=== PATIENT | female | born 1975 | race Caucasian/White ===

== ENCOUNTER 2019-03-22 16:12 | Emergency (ER) | payer OTHER, SELFPAY ==
[2019-03-22 16:25] VITALS: BP 115/59; PULSE 59; RESP 19; TEMP 36.8; O2SAT 100
[2019-03-22 16:36] LABS: Basophils Absolute Auto 0.1 K/mm3 (0.0-0.1); Basophils Percent Auto 1.1 % (0.2-1.2); Hematocrit 40.1 % (37.0-47.0); Hemoglobin 12.5 g/dL (12.0-15.0); Immature Granulocyte Absolute 0.02 K/mm3 (0.00-0.031); Immature Granulocyte Percent A 0.2 % (0-0.5); Lymphocytes Absolute Auto 2.48 K/mm3 (0.9-3.2); Mean Corpuscular HGB Conc 31.2 g/dl (32-36); Mean Corpuscular Hemoglobin 28.7 pg (26-34); Mean Platelet Volume 10.1 fl (7.4-10.4); Monocytes Absolute Auto 0.5 K/mm3 (0.1-0.6); Monocytes Percent Auto 5.2 % (2.6-8.5); Neutrophils Absolute Auto 5.8 K/mm3 (1.3-6.7); Neutrophils Percent Auto 65.5 % (45.5-73.1); Platelet Count Result 452 k/mm3 (150-375); Red Blood Count 4.36 M/mm3 (4.2-5.4); Red Cell Distribution Width 13.3 % (11.5-14.5); White Blood Count 8.9 K/mm3 (4.5-10.0)
[2019-03-22 16:47] LABS: Alanine Aminotransferase 12 U/L (4-35); Alkaline Phosphatase 98 U/L (38-126); Aspartate Amino Transferase 18 U/L (14-36); Bilirubin,Total 0.3 mg/dL (0.2-1.3); Blood Urea Nitrogen 12 mg/dL (7-17); Calcium 8.9 mg/dL (8.4-10.2); Carbon Dioxide 28 mmol/L (22-30); Chloride 102 mmol/L (98-107); Estimated Glomerular Filt Rate > 60; Glucose 101 mg/dL (65-105); Lipase 64 U/L (23-300); Potassium 4.1 mmol/L (3.4-5.0); Sodium 140 mmol/L (137-145)
[2019-03-22 16:49] LABS: Add Urine Microscopic? YES; Appearance Urine Cloudy (Clear); Bacteria Urine Trace /hpf; Bilirubin Urine Negative (Negative); Blood Urine 1+ (Negative); Color Urine Yellow (Yellow); Glucose Urine UA Negative (Negative); Ketones Urine Negative (Negative); Leukocyte Esterase Ur 2+ LEU/UL (Negative); Mucus Urine Moderate /lpf; Nitrate Urine Negative (Negative); Protein Urine Negative (Negative); RBC Urine 0-2 /hpf (0-2); Specific Grav Ur 1.026 (1.001-1.035); Squamous Epithelial Cell Urine Many /hpf (Few); Urobilinogen Urine Negative mg/dL (<2.0)
[2019-03-22 17:53] VITALS: BP 105/56; PULSE 66; RESP 19; TEMP 37.1; O2SAT 100
--- NOTE | 2019-03-22 18:20 | ED.ABDPAIN ---
HPI - Abdominal Pain General Chief Complaint: Abdominal Pain Stated Complaint: Stomach cramps Time Seen by Provider: 03/22/19 18:15 Source: patient and RN notes reviewed Mode of arrival: ambulatory Limitations: no limitations History of Present Illness HPI narrative: Pt is a 43 y/o female who presents to the ED with c/o diffuse lower ABD pain starting 3 days ago. She describes her pain as cramping. Pt notes that she began having diarrhea 2 days ago. She states that her pain became aggravated yesterday while at work, noting that she began vomiting due to the increased pain. Pt states that she was seen at an urgent care facility yesterday for her symptoms, and notes that she was discharged home with Zofran. She states that the medication has provided her relief of her symptoms. Pt denies any fever, chills, back pain, vaginal discharge, dysuria, hematuria, or urinary frequency. She notes that she hasn't had any vomiting today. She notes that she has recently been around a coworker that has had the flu. MD elicited complaint: abdominal pain Onset (ago): day(s) (3) Location: other (diffuse lower ABD) Quality: cramping Radiation: none Context: confirms sick contacts (coworker with flu) Associated symptoms: nausea, vomiting (resolved) and diarrhea Treatments prior to arrival: other (Zofran) Related Data Home Medications Medication Instructions Recorded Confirmed lamotrigine 03/22/19 lamotrigine 03/22/19 Allergies Allergy/AdvReac Type Severity Reaction Status Date / Time Penicillins Allergy Unknown Hives Verified 03/22/19 18:17 Review of Systems Review of Systems: Narrative: CONSTITUTIONAL: Denies fever, chills, or sweats. GASTROINTESTINAL: Reports diffuse lower abdominal pain, nausea, vomiting, and diarrhea. GENITOURINARY: Denies dysuria, hematuria, urinary frequency, or vaginal discharge. MUSCULOSKELETAL: Denies back pain, joint pain, or myalgia. All systems reviewed & are unremarkable except as noted in HPI and below PMFSH Past Medical History Medical History Epilepsy depression Surgical History Surgical History Hx of appendectomy Social History Social History Smoking status: Never smoker Gender identity (if verbalized by the patient): Female Comments PCP is Dr. Britt. Exam Narrative: Exam Narrative: GENERAL: Well-appearing, well-nourished, and in no acute distress. HEAD: Normocephalic, atraumatic. EYES: PERRLA and EOMI. ENT: Nares clear, no rhinorrhea or epistaxis. Mucous membranes moist. NECK: Supple. CHEST: Clear to auscultation. No respiratory distress. HEART: Regular rate and rhythm. No murmur heard. Normal peripheral pulses. ABDOMEN: Soft, nontender, nondistended, normal active bowel sounds. No flank tenderness. EXTREMITIES: Normal range of motion. No edema. SKIN: Warm, dry, no rash. NEURO: No focal deficits. Alert and oriented. Course Course Emergency Course: Patient presented for evaluation of nausea and vomiting. At the time of initial assessment, ABCs are intact and vital signs are stable. Patient has no abdominal pain on exam. She denies vaginal discharge or dysuria. No hematuria or frequency. Her laboratory results are reassuring. No leukocytosis or electrolyte abnormality. After speaking with the patient, clinically I do not feel her symptoms are at all consistent with urinary tract infection, I do feel the sample is not the most clean-catch, so we will await culture as she is asymptomatic. Patient with intermittent cramping, vomiting, diarrhea. This all seems most consistent with viral gastroenteritis. Patient has had no vomiting today is tolerating oral intake. Shared decision-making occurred with the patient, given normal laboratory studies, no pain on exam, she would like to forego a CT scan in this moment. I explained that should h
== END 2019-03-22 19:00 | disposition home or self-care (01) ==
PROVIDERS: Emergency Provider Emergency Medicine; PCP Internal Medicine
DX: K52.9 Noninfective gastroenteritis and colitis, unspecified (principal); G40.909 Epilepsy, unspecified, not intractable, without status epilepticus
CPT/HCPCS: 36415; 80053; 81001; 81025; 83690; 85025; 87086; 99283

== ENCOUNTER 2022-08-03 09:02 | Outpatient (CLI) | payer OTHER, SELFPAY ==
--- NOTE | ~2022-08-03 | MM_ITS ---
EXAMINATION: MM screening rita BI w [facility] HISTORY: Screening mammogram TECHNIQUE: Craniocaudal and mediolateral oblique 3-D tomosynthesis images were obtained and synthetic 2-D images were generated. CAD analysis was submitted and interpreted. COMPARISON: No prior mammogram is available for comparison at this institution. BREAST PARENCHYMAL COMPOSITION: The breasts are heterogeneously dense, which may obscure small masses . FINDINGS: Nonspecific bilateral mammographic asymmetry. Lateral diagnostic mammography is recommended , with ultrasound if required. IMPRESSION: 1. Nonspecific mammographic asymmetry 2. Bilateral diagnostic mammography is recommended, with ultrasound if required. BI-RADS Category 0: Incomplete: Needs additional imaging evaluation. Reviewed, dictated and finalized at location A. IMPRESSION: 1. Nonspecific mammographic asymmetry 2. Bilateral diagnostic mammography is recommended, with ultrasound if required . BI-RADS Category 0: Incomplete: Needs additional imaging evaluation.
== END 2022-08-03 09:03 | disposition home or self-care (01) ==
LOC: ANHIMG 09:05
PROVIDERS: PCP Internal Medicine; Visit Provider Physician Assistant
DX: Z12.31 Encounter for screening mammogram for malignant neoplasm of breast (principal); R92.8 Other abnormal and inconclusive findings on diagnostic imaging of breast
CPT/HCPCS: 77063; 77067

== ENCOUNTER 2022-09-10 11:28 | Outpatient (CLI) | payer OTHER, SELFPAY ==
--- NOTE | ~2022-09-10 | MMUS_ITS ---
EXAMINATION: MM diagnostic rita BI w elmer, US breast BI complete HISTORY: No specific mammographic asymmetry was reported on 08/03/2022 screening mammogram examination TECHNIQUE: Additional 3-D tomosynthesis images of both breasts were performed and synthetic 2-D image s were generated. CAD analysis was submitted and interpreted. High resolution complete bilateral [facility] [facility] ultrasound examination including all 4 quadrants and subareolar areas was performed. COMPARISON: 08/03/2022, 03/24/2021, 09/28/2018 bilateral screening mammogram examinations BREAST PARENCHYMAL COMPOSITION: The breasts are heterogeneously dense, which may obscure small masses . FINDINGS: MAMMOGRAPHIC FINDINGS: Stable mild fibroglandular asymmetry since 09/28/2018 and 03/24/2021. No suspicious interval mass or architectural distortion or any malignant calcification, skin thickeni ng or retraction of either breast is detected. ULTRASOUND: Right breast: There is a cluster of cysts at 7:00 subareolar area measuring up to approximately 7 x 4 .5 x 6 mm, with through transmission and posterior enhancement. No other significant finding of the right breast; no suspicious mass or shadowing. Left breast: 11:00 2 cm from nipple: There is an approximately 1.9 x 2.5 x 2.7 mm mildly irregular hypoechoic lesi on without suspicious shadowing or internal vascularity. This is probably benign. Six-month follow-up targeted right breast ultrasound at 11:00 2 cm from the nipple is recommended. IMPRESSION: 1. Probable benign mildly irregular up to 2.7 mm hypoechoic lesion at left breast 11:00 2 cm from nip ple 2. Six-month targeted 11:00 left breast ultrasound follow-up is recommended BI-RADS category 3, probably benign findings. Reviewed, dictated and finalized at location A. IMPRESSION: 1. Probable benign mildly irregular up to 2.7 mm hypoechoic lesion at left [address] 11:00 2 cm from nipple 2. Six-month targeted 11:00 left breast ultrasound follow-up is recommended BI-RADS category 3, probably benign findings.
== END 2022-09-10 11:29 | disposition home or self-care (01) ==
LOC: ANHIMG 11:30
PROVIDERS: PCP Internal Medicine; Visit Provider Physician Assistant
DX: R92.8 Other abnormal and inconclusive findings on diagnostic imaging of breast (principal)
CPT/HCPCS: 76641; 77062; 77066; G0279

== ENCOUNTER 2022-11-18 09:52 | Outpatient (CLI) | payer OTHER, SELFPAY ==
--- NOTE | ~2022-11-18 | US_ITS ---
EXAMINATION: US pelvic complete w TV DATE: 11/18/2022 10:26 INDICATION: Abnormal uterine bleeding TECHNIQUE: Multiple transabdominal and endovaginal sonographic images of the pelvis were obtained. COMPARISON: None. FINDINGS: The uterus measures 7.8 x 4.4 x 5.3 cm. The endometrial complex measures 2.4 cm. The right ovary measures 3.1 x 1.9 x 2.2 cm. The left ovary measures 3.1 x 1.4 x 1.9 cm. There is normal vascul ar flow in the ovaries. There is no free fluid in the pelvis. IMPRESSION: 1. Endometrial thickening which may be due to hyperplasia, polyp, or malignancy. Endometrial sampling is recommended. Reviewed, dictated and finalized at location L. IMPRESSION: 1. Endometrial thickening which may be due to hyperplasia, polyp, or malignancy . Endometrial sampling is recommended.
== END 2022-11-18 09:53 | disposition home or self-care (01) ==
PROVIDERS: PCP Internal Medicine; Visit Provider Physician Assistant
DX: N93.9 Abnormal uterine and vaginal bleeding, unspecified (principal); R93.89 Abnormal findings on diagnostic imaging of other specified body structures
CPT/HCPCS: 76830; 76856

== ENCOUNTER 2024-01-08 20:32 | Emergency (ER) | payer OTHER, SELFPAY ==
[2024-01-08 20:36] VITALS: BP 103/71; PULSE 85; RESP 16; TEMP 36.6; O2SAT 100
--- NOTE | 2024-01-08 22:43 | ED_ITS ---
HPI - Burn/Smoke Inhalation General Chief complaint: Burn/Smoke Inhalation Stated complaint: burn Time Seen by Provider: 01/08/24 22:15 History of Present Illness HPI Narrative: 48-year-old female presents to the emergency department for a burn to her left hand that occurred 4 days ago. Patient states she was cooking hand when she accidentally spilled the hot lays on her left wrist. She immediately rinsed the area under cold water. States she developed 2 large blisters which has since popped. She has been using Neosporin and bandages. States she wanted to be evaluated because the skin is starting to peel off. Tdap is up-to-date. Related Data Home Medications Medication Instructions Recorded Confirmed lamotrigine 100 mg tablet 03/22/19 lamotrigine 150 mg tablet 03/22/19 Allergies Allergy/AdvReac Type Severity Reaction Status Date / Time Penicillins Allergy Unknown Hives Verified 03/22/19 18:17 Review of Systems Review of Systems: All systems reviewed & are unremarkable except as noted in HPI and below PMFSH Past Medical History Medical History (Updated 01/08/24 @ 23:08 by Angelina Mortensen PA-C) Epilepsy depression Surgical History Surgical History Hx of appendectomy Social History Social History Smoking status: Never smoker Gender identity (if verbalized by the patient): Female Exam Narrative: GENERAL: Well-appearing, well-nourished, and in no acute distress. HEAD: Normocephalic, atraumatic. EYES:EOMI. ENT: Nares clear, no rhinorrhea or epistaxis. Mucous membranes moist. NECK: Supple. CHEST: Clear to auscultation. No respiratory distress. HEART: Regular rate and rhythm. No murmur heard. Normal peripheral pulses. EXTREMITIES: Normal range of motion. No edema. SKIN: healing second-degree burn to the left wrist and dorsum of the hand extending from the distal radius to the distal 1st metacarpal and along the dorsum of the hand. No vesicles but there are 2 areas of discrimination with healthy skin. No warmth or erythema, no drainage, no crepitus. Patient has ful l active and passive range of motion of wrist in all fingers. Burn is not circumferential. Radial pulse 2 +. Sensation intact throughout. Cap refill less than 2. Compartments are soft NEURO: No focal deficits. Alert and oriented x3 Course Vital Signs Vital signs: Vital Signs Temperature 98 F 01/08/24 20:36 Pulse Rate 85 01/08/24 20:36 Respiratory Rate 16 01/08/24 20:36 Blood Pressure 103/71 01/08/24 20:36 Pulse Oximetry 100 01/08/24 20:36 Oxygen Delivery Room Air 01/08/24 20:36 Temperature 98 F 01/08/24 20:36 Pulse Rate 85 01/08/24 20:36 Respiratory Rate 16 01/08/24 20:36 Blood Pressure 103/71 01/08/24 20:36 Pulse Oximetry 100 01/08/24 20:36 Oxygen Delivery Room Air 01/08/24 20:36 MDM - Burn/Smoke Inhalation MDM Narrative Medical decision making narrative: 48-year-old female presents to the emergency department for a burn to her left wrist/ hand that occurred 4 days ago after burning herself on hot turkey glaze. Vitals are stable. Exam is significant for healing second-degree burn. No active vesicles but there is appearance of discrimination and likely popped vesicles. Healthy healing granulated skin beneath. No evidence of secondary infection. The burn is not circumferential. She has full active and passive range of motion of the wrist and all digits. No evidence of compartment syndrome. She is neurovascularly intact. Will provide stool for sulfadiazine and have her follow-up closely with her PCP. Discussed wound care. Tdap is updated. Strict ED return precautions discussed. She is agreeable with the plan verbalized understanding. Discharged in stable condition. Discharge Plan Discharge Clinical Impression: Second degree burn Patient Disposition: Home, Self-Care Condition: Stable Instructions: Antibiotic Form, Second-Degree Burn (ED) Additional Instructions: Your evaluated in the emergency department for a burn. Your exam is consistent with a second-degree burn. Please use the cream as directed follow- up with her primary care provider. Take Tylenol and ibuprofen as needed for pain as directed on the bottle. Return to the emergency department if he develops significantly worsening pain, fever, surrounding redness, difficulty with movement of your wrist, or other concerning symptoms. Prescriptions: New silver sulfadiazine 1 % cream 1 applic topical BID Qty: 20 0RF Rx Instructions: apply a 1.5 mm thickness No Action lamotrigine 150 mg tablet lamotrigine 100 mg tablet famotidine [Pepcid] 20 mg tablet 20 mg PO BID 15 Days Qty: 30 0RF dicyclomine 10 mg capsule 10 mg PO BID 5 Days Qty: 10 0RF Follow-up/Referrals: Balwinder,Sridhar Medina MD [Primary Care Provider] -
[2024-01-08 23:14] VITALS: BP 112/58; PULSE 78; RESP 16; TEMP 36.8; O2SAT 100
== END 2024-01-08 23:16 | disposition home or self-care (01) ==
PROVIDERS: Emergency Provider Physician Assistant; PCP Internal Medicine
DX: T23.292A Burn of second degree of multiple sites of left wrist and hand, initial encounter (principal); X10.1XXA Contact with hot food, initial encounter; G40.909 Epilepsy, unspecified, not intractable, without status epilepticus
CPT/HCPCS: 99283

== ENCOUNTER 2024-03-31 17:03 | Emergency (ER) | payer BC, SELFPAY ==
--- OUTSIDE RECORDS SUMMARY | 2024-03-31 17:05 | XMS_ITS | Patient Health Record ---
Author Organization [facility] Address [address] [place] [id number] Care Team Providers Care Golf Cart Maker Name Role Phone Sridhar Britt MD Primary Care Provider Dr. Jose Armstrong Unavailable [phone] [facility], Provider Unavailable Unavailab le Allergies Allergen (clinical drug ingredient) Drug/Non Drug Allergy documented on EMR Reaction Allergy Type Onset Date Status amoxicillin Amoxicillin rash Drug Allergy Act tiana Reason For Referral No Information Medications Medication SIG (Take, Route, Frequency, Duration) Notes Start Date End Date Status Amiodarone HCl 400 MG 1 tab(s) orally on ce a day Not-Taking Metoprolol Succinate ER 25 MG 1 tab(s) orally once a day Not-Taking Briviact 50 MG 1 tablet orally Twic e a day for 30 days 10/06/2023 Active lamoTRIgine 100 MG 0.5 tab in AM, 1.5 t ab in PM orally with meals as directed for 30 days Active Social History Tobacco Use: Social History Observation Description Date Details (start date - stop date) Never Smoker NA - NA Tobacco Control (Standard) Question Answer Notes Tobacco use: Nonsmoker Section Notes: Non smoker, no EtOH abuse, n o illicit drug use Non smoker, no EtOH abuse, n o illicit drug use Non smoker, no EtOH abuse, n o illicit drug use Non smoker, no EtOH abuse, n o illicit drug use Non smoker, no EtOH abuse, n o illicit drug use Problems Problem Type SNOMED Code ICD Code Onset Dates Problem Status W/U Status Risk Notes Problem Epilepsy (71352547) Epilepsy, unspecified, not intractable, without status epilepticus (G40.909) Active confirmed Problem Epilepsy, unspecified, intractable, without status epilepticus (G40.919) Active confirmed Problem Chronic migraine without aura, non-refractor y (disorder) (464668876245 100) Migraine without aura, not intractable, without status migrainosus (G43.009) Active confirmed Problem Migraine with aura (0200157) Migraine with aura, not intractable, without status migrainosus (G43.109) Active confirmed Problem Chronic migraine without aura, non-intractab le (766275174868 100) Chronic migraine without aura, not intractable, without status migrainosus (G43.709) Active confirmed Problem Insomnia (749115398) Insomnia, unspecified (G47.00) Active confirmed Problem Encounter for therapeutic drug level monitoring (Z51.81) Active confirmed Vital Signs Respiratory Rate 16 /min 06/01/2023 Oximetry 100 % 10/06/2023 Blood pressure diastolic 68 mm Hg 10/06/2023 Height 62 in 10/06/2023 Blood pressure systolic 94 mm Hg 10/06/2023 Weight 140.8 lbs 10/06/2023 BMI 25.75 kg/m2 10/06/2023 Encounters Encounter Location Date Provider Diagnosis [address] [address] 07/23/2023 Provider [facility] [address] [address] [address] 04/27/2023 Jose Forman Epilepsy, unspecified, intractable, without status epilepticus G40.919 ; Unspecified adverse effect of drug or medicament, initial encounter T88.7XXA and Unspecified abnormalities of gait and mobility R26.9 [address] [facility] [address] [address] 06/01/2023 Jose Forman Epilepsy, unspecified, intractable, without status epilepticus G40.919 and Encounter for therapeutic drug level monitoring Z51.81 [address] [facility] [employer] [address] [address] 08/18/2023 Jose Forman Epilepsy, unspecified, intractable, without status epilepticus G40.919 and Encounter for therapeutic drug level monitoring Z51.81 [address] [employer] [address] [address] 10/06/2023 Jose Forman Epilepsy, unspecified, not intractable, without status epilepticus G40.909 [facility] [place] [place] [address] 04/25/2023 Jose Forman [facility] - [address] [place] [address] 05/03/2023 Jose Forman [facility] - [place] [address] [place] [address] 06/01/2023 Jose Forman Encounter for therapeutic drug level monitoring Z51.81 [facility] - [place] [address] [place] [address] 06/15/2023 Jose Forman Assessments Encounter Date Diagnosis (ICD Code) Assessment Notes Treatment Notes Treatment Clinical Notes Section Notes 06/01/2023 Encounter for therapeutic drug level monitoring (ICD-10 - Z51.81) 08/18/2023 Epilepsy, unspecified, intractable, without status epilepticus (ICD-10 - G40.919) Continue current doses of Briviact and Lamictal. F/u in 7 weeks, this will be 6 months from last seizure, if remains stable/seizure -free will clear driving at that time 08/18/2023 Encounter for therapeutic drug level monitoring (ICD-10 - Z51.81) Lamotrigine level reviewed, therapeutic. 10/06/2023 Epilepsy, unspecified, not intractable, without status epilepticus (ICD-10 - G40.909) Continue current doses of Lamotrigine and Briviact. Medically cleared to resume driving. Stable, doing well. She is > 6 months seizure-free and on a stable AED regimen. She is medically cleared to resume driving 04/27/2023 Epilepsy, unspecified, intractable, without status epilepticus (ICD-10 - G40.919) Continue Lamotrigine 250 mg daily. Reduce Briviact to 50 mg bid. I don't know if the dizziness is from increasing Briviact from 100 mg to 200 mg daily or from adding Amiodaron, or both. There could also be residual effects from the cardiac arrest, although she reported Brain MRI from hospitalization was negative. She reported tolerating Briviact at dose of 50 mg bid prior to this hospitalization, so I would go back to that dose. I also advised her to discuss Amiodarone with her [employer]. Reviewed seizure precautions, driving restriction, etc. 04/27/2023 Unspecified adverse effect of drug or medicament, initial encounter (ICD-10 - T88.7XXA) Reduce Briviact to 50 mg bid. Discuss amiodarone with Cardiology. I don't know if the dizziness is from increasing Briviact from 100 mg to 200 mg daily or from adding Amiodaron, or both. There could also be residual effects from the cardiac arrest, although she reported Brain MRI from hospitalization was negative. She reported tolerating Briviact at dose of 50 mg bid prior to this hospitalization, so I would go back to that dose. I also advised her to discuss Amiodarone with her [employer]. Reviewed seizure precautions, driving restriction, etc. 06/01/2023 Epilepsy, unspecified, intractable, without status epilepticus (ICD-10 - G40.919) Continue lamotrigine 200 mg daily and Briviact 100 mg daily. 06/01/2023 Encounter for therapeutic drug level monitoring (ICD-10 - Z51.81) Check trough lamotrigine and Briviact levels. 04/27/2023 Unspecified abnormalities of gait and mobility (ICD-10 - R26.9) Physical Therapy (she has already been referred). I don't know if the dizziness is from increasing Briviact from 100 mg to 200 mg daily or from adding Amiodaron, or both. There could also be residual effects from the cardiac arrest, although she reported Brain MRI from hospitalization was negative. She reported tolerating Briviact at dose of 50 mg bid prior to this hospitalization, so I would go back to that dose. I also advised her to discuss Amiodarone with her [employer]. Reviewed seizure precautions, driving restriction, etc. 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
--- OUTSIDE RECORDS SUMMARY | 2024-03-31 17:06 | XMS_ITS | Clinical Summary ---
Author Organization [facility] Address [facility] [place] [address] Care Team Providers Care Hoof And Shoe Inspector Name Role Phone Sridhar Britt MD Primary Care Provider Allergies Active Allergy Reactions Criticality Noted Date Comments Amiodarone Vision changes,Dizziness,Nausea only Medium 05/09/2023 Carbamazepine Penicillins Rash Reaction: Rash, Valproic Acid Medications cholecalciferol (VITAMIN D-3) 2000 unit capsule Take 1 capsule (2,000 Units total) by mouth daily 04/16/2023 5 Active brivaracetam (BRIVIACT) 100 mg tablet Take 1 tablet (100 mg total) by mouth 2 (two) times a day 60 tablet 2 04/16/2023 5 Active lamoTRIgine (LaMICtal) 100 mg tablet Take 1 tablet (100 mg total) by mouth daily 30 tablet 2 04/16/2023 5 Active spironolactone (ALDACTONE) 25 mg tablet Take 1 tablet (25 mg total) by mouth daily 30 tablet 11 08/19/2023 5 Active Active Problems Problem Noted Date Diagnosed Date Seizure 04/04/2023 Cardiogenic shock 04/04/2023 Ventricular fibrillation (CMS/HCC) 12/16/2022 Cardiac arrest 12/16/2022 Episodic tension-type headache, not intractable 12/16/2020 Assessment & Plan (12/16/2020 9:36 AM TRUCK CHAUFFEUR): Patient describes episodic headaches typically brought on by emotional stressors with historical characteristics consistent with muscle contraction type headache. She enjoys a normal neurological examination at this time. I would recommend yrce-exm-ejxkwta anti-inflammatories on an as-needed basis if the headaches do recur. Generalized idiopathic epile psy and epileptic syndromes, not intractable, without status epilepticus 11/01/2019 Assessment & Plan (12/16/2020 9:35 AM TRUCK CHAUFFEUR): Patient continues on lamotrigine 100 mg b.i.d. with good tolerability and no seizures reported over the past year. I have reviewed teratogenicity and suggested use of an bisj-zmq-ttbiuis multivitamin with folic acid an effort to reduce potential teratogenicity. She will continue on lamotrigine 100 mg b.i.d. at this time and a refill authorization has been submitted. She will follow-up in neurology clinic in 1 year or sooner on an as-needed basis. Assessment & Plan (11/01/2019 10:15 AM CDT): Patient's history of primary generalized epilepsy. She she is taking lamotrigine 100 mg b.i.d.. She has no tolerability issues on this dose and has no reported seizures over the past year. She is in need of renewal of medication. I have renewed her lamotrigine 100 mg b.i.d. 4 month with 11 monthly subsequent refills. I will see her back in 1 year. Encounters Date Type Department Care Team Description 03/01/2024 10:45 AM TRUCK CHAUFFEUR - 03/01/2024 11:59 PM TRUCK CHAUFFEUR Hospital Encounter [facility] Cardiac Diagnostic Lab [address] [place] [address] Ventricular fibrillation (CMS/HCC) (HCC); Cardiac arrest (HCC) Discharge Disposition: Discharge to home or self care 02/24/2024 Orders Only [facility] Cardiology [address] 8[address] [place] [address] [place] [address] Francisco Javier Narayanan MD from Last 3 Months Surgical History Surgery Date Site/Laterality Comments HI APPENDECTOMY 02/08/1996 - 02/06/1997 Appendectomy - (Added by SHELDON Conv) Medical History Medical History Date Comments Generalized seizures (HCC) Family History Medical History Relation Name Comments Diabetes Father Hypertension Father Epilepsy Other Seizure Disorde r - Her cousin has epilepsy. (Added by SHELDON Conv) Relation Name Status Comments Father Alive Mother Alive Other Social History Tobacco Use Types Packs/Day Years Used Date Smoking Tobacco: Never Smokeless Tobacco: Never Tobacco Cessation:Counseling Given: Not Answered Alcohol Use Standard Drinks/Week Comments Defer 0 (1 standard drink = 0.6 oz pur e alcohol) [facility] Utilities Answer Date Recorded In the past 12 months has th e electric, gas, oil, or water company threatened to shut off services in your home? No 04/18/2023 Social Connection and Isolat ion Panel [NHANES] Answer Date Recorded In a typical week, how many times do you talk on the phone with family, friends, or neighbors? More than three times a week 04/18/2023 How often do you get togethe r with friends or relatives? More than three times a week 04/18/2023 How often do you attend chur ch or shinto services? Patient declined 04/18/2023 Do you belong to any clubs o r organizations such as gnosticism groups, unions, fraternal or athletic groups, or school groups? Patient declined 04/18/2023 How often do you attend meet ings of the clubs or organizations you belong to? Patient declined 04/18/2023 Are you , , di vorced, , never , or living with a partner? 04/18/2023 AUDIT-C Answer Date Recorded Q1: How often do you have a drink containing alc ohol? Monthly or less 04/14/2023 Q2: How many drinks containi ng alcohol do you have on a typical day when you are drinking? 1 or 2 04/14/2023 Q3: How often do you have si x or more drinks on one occasion? Never 04/14/2023 Overall Financial Resource Strain (CARDIA) Answe r Date Recorded How hard is it for you to pa y for the very basics like food, housing, medical care, and heating? Not hard at all 04/18/2023 Hunger Vital Sign Answer Date Recorded Within the past 12 months, y ou worried that your food would run out before you got the money to buy more. Never true 04/18/19 24 Within the past 12 months, t he food you bought just didn't last and you didn't have money to get more. Never true 04/18/2023 PRAPARE - Transportation Answer Date Re corded In the past 12 months, has l ack of transportation kept you from medical appointments or from getting medications? No 04/07 In the past 12 months, has l ack of transportation kept you from meetings, work, or from getting things needed for daily living? No 04/18/2023 Housing Stability Vital Sign Answer Davon e Recorded In the last 12 months, was t here a time when you were not able to pay the mortgage or rent on time? No 04/18/2023 In the last 12 months, how many places have you lived? 1 04/18/2023 In the last 12 months, was t here a time when you did not have a steady place to sleep or slept in a nursing home (including now)? No 04/18/2023 Personal Safety Answer Date Recorded Have you ever been in or are you currently in a harmful physical or emotional relationship or is someone making you feel afraid or unsafe? Denies 09/08/2023 Comments No Sex and Gender Information Value Date Recorded Sex Assigned at Not on file Legal Sex Female 4:51 AM TRUCK CHAUFFEUR Gender Identity Not on file Sexual Orientation Not on file Obstetrics History Last Filed Vital Signs Vital Sign Reading Time Taken Comments Blood Pressure 113/75 11/24/2023 11:20 AM CDT Pulse 80 11/24/2023 11:20 AM CDT Temperature 36.4 C (97.6 F) 11/24/2023 11:20 AM CDT Respiratory Rate 18 11/24/2023 11:20 AM CDT Oxygen Saturation 98% 11/24/2023 11:20 AM CDT Inhaled Oxygen Concentration - - Weight 64.9 kg (143 lb) 11/24/2023 11:20 AM CDT Height 160 cm (5' 3 ) 11/24/2023 11:20 AM CDT Body Mass Index 25.33 11/24/2023 11:20 AM CDT Plan of Treatment Health Maintenance Due Date Last Done Comments Breast Cancer Screening-Mammogram 1975 Cervical Cancer Screening 1975 Colon Cancer Screening-Colonoscopy 1975 Depression Screening 1975 Hepatitis C Screening 1975 Hepatitis B Screening 10/19/1993 Regular Well Visit/Exam 18-64 10/19/1993 DTaP/Tdap/Td Vaccine (2 - Td or Tdap) 11/20/2028 11/20/2018 Influenza Vaccine Completed 01/26/2024, 11/20/2018 Pneumococcal vaccine <65 Aged Out No longer eligible based on patient's age to complete this topic Medical Devices Implanted Type Area Sanitation Technician Device Identifier Shelf Expiration Date Model / Serial / Lot [employer]. [facility] S-Icd 83.1x69.1mm Pulse Generator Battery Subcutaneous A219 - [id number] - [id number] Implanted:Qty: 1 on 04/14/2023 by Francisco Javier Narayanan MD at [facility] ICD [employer]. 02/20/2025 A219 / [id number] / [employer] G[employer] Emble S-Icd Subcutaneous Electrode Defibrillator 3501 - [id number] - [id number] Implanted:Qty: 1 on 04/14/2023 by Francisco Javier Narayanan MD at [facility] Subcutaneous Defibrillator Electrode [employer] Gin 02/15/2025 3501 / [id number] / Procedures Procedure Name Priority Date/Time Associated Diagnosis Comments TRANSTHORACIC ECHO (TTE) COMPLETE W DOPPLER/CF WO CONTRAST Routine 03/01/2024 11:52 AM TRUCK CHAUFFEUR Ventricular fibrillation (CMS/HCC) (HCC) Cardiac arrest (HCC) DEVICE CHECK - REMOTE Routine 02/24/2024 9:43 AM TRUCK CHAUFFEUR from Last 3 Months Results * TRANSTHORACIC ECHO (TTE) COMPLETE W DOPPLER/CF WO CONTRAST (03/01/2024 11:52 AM TRUCK CHAUFFEUR) LV EF % CONS SCIMAGE Anatomical Region Laterality Modality Ultrasound 03/01/2024 11:0 3 AM TRUCK CHAUFFEUR Narrative 03/02/2024 3:03 PM TRUCK CHAUFFEUR [facility] Cardiac Diagnostic [place] [address] [place] [address] Transthoracic Echocardiographic Report Patient Name: SEJAL HOUSTON L : 1975 (48y 4m) Gender: F Study Date: 03/01/2024 11:03:28 AM Ht(Inch): 63 Wt(Lb): 143.08 BSA: 1.7 Auto Service Dispatcher: raul mena Location: [facility] Order Provider: DICK SALMERON Heart Rate: 68 BMI: 25.34 BP: 123 / 75 Quality: The study images were of technically good quality. Ref Provider: DICK SALMERON PROCEDURES: Echocardiographic Report: ([id number], [id number]) Transthoracic complete echo with strain imaging, 2D, spectral and tissue Doppler, color flow Doppler, M-mode. INDICATIONS: I49.01 Ventricular fibrillation and I46.9 Cardiac arrest, cause unspecified. MEASUREMENTS: 2D/MM Value Range Doppler Value Range LVIDd 2D 4.17 cm [ 3.80 - 5.20 ] LVOT Peak Andres 1.00 m/s [ 0.70 - 1.10 ] LVIDs 2D 3.05 cm [ 2.20 - 3.50 ] LVOT Peak PG 4.00 IVSd 2D 0.65 cm [ 0.60 - 0.90 ] LVOT Mean PG 1.94 mmHg LVPWd 2D 0.68 cm [ 0.60 - 0.90 ] LVOT VTI 18.65 cm LV Thickness Ratio 0.96 [ 1.50 - 3.00 ] LVOT Diam 1.97 cm LV FS 2D 26.78 % [ 27.00 - 45.00 ] MV E Peak Andres 0.69 m/s [ 0.60 - 1.30 ] LV Mass 2D 81.01 g MV A Peak Andres 0.57 m/s [ 1.00 - 1.20 ] LV Mass Index 2D 47.65 g/m2 MV E/A 1.22 ratio [ 0.80 - 1.50 ] RWT 0.33 MV Decel Time 246.78 msec [ 104.00 - 258.00 ] LV EDV 2D 77.26 Med E` Andres 11.79 cm/sec [ 8.00 - 15.00 ] LV ESV 2D 36.44 Lat E` Andres 12.21 cm/sec [ 10.00 - 15.00 ] EF Teich 2D 53 % [ 54 - 74 ] Average E/E` 5.75 LV EDV Index 40.31 ml/m2 RV S` 12.04 cm/sec EDV Mod 2C 70.25 ml [ 41.00 - 133.00 ] PV Peak Andres 0.53 m/s [ 0.40 - 0.80 ] EDV Mod 4C 65.74 ml PV Peak PG 1.12 EDV Mod BP 68.52 ml [ 46.00 - 106.00 ] PV Accel Time 163.65 msec [ 103.00 - 142.00 ] ESV Mod 2C 30.44 ml PV Accel [place] 323.38 cm/sec2 ESV Mod 4C 28.41 ml ESV Mod BP 29.66 ml [ 14.00 - 42.00 ] EF Mod 2C 57 % EF Mod 4C 57 % EF Mod BP 57 % [ 54 - 74 ] LV GLS -18.7 % LA Length 2C 3.79 cm LA Length 4C 4.98 cm LA Volume 2C 30.1 ml LA Volume 4C 32.2 ml LA Volume BP 39.54 ml LA Volume Index 23.26 ml/m2 RV Base Dimen 2D 3.3 cm [ 2.5 - 4.2 ] TAPSE 2.01 cm [ 1.71 - 5.00 ] RA Area 10.12 cm/m2 [ 10.00 - 18.00 ] RA Volume 22.25 ml RA Volume Index 13.09 ml/m2 IVC Diam 1.11 sec AoR Diam 2D 2.65 cm [ 2.70 - 3.70 ] Ao Root Index 1.56 cm/m2 - FINDINGS: Left Ventricle: Normal left ventricular size based on volume index. Normal LV geometry. Normal left ventricular systolic function. The Ejection Fraction (Frey's) is measured at 57 %. Left ventricular diastolic parameters are consistent with normal diastolic function. The average global longitudinal strain rate is normal (more negative than -18%). Regional Wall Motion: There are no regional wall motion abnormalities. Right Ventricle: Normal right ventricular size. Normal right ventricular systolic function. Left Atrium: The left atrium is normal in size. Right Atrium: The right atrium is normal in size. Atrial Septum: The interatrial septum is normal in appearance. Mitral Valve: The mitral valve demonstrates normal leaflet morphology and function. Aortic Valve: Trileaflet aortic valve. Tricuspid Valve: There is trivial tricuspid regurgitation. PASP cannot be evaluated due to lack of adequate TR jet. Pulmonic Valve: Normal appearance of the pulmonic valve leaflets without evidence stenosis. Pericardium: Normal pericardium without evidence of pericardial effusion. Aorta: The aortic root is normal in size when indexed. IVC: The inferior vena cava is of normal size. Rhythm: The rhythm during the study was normal sinus rhythm. CONCLUSIONS: 1. Normal left ventricular cavity size and wall thickness. Normal left ventricular systolic function, LVEF 57 %. Normal diastolic function with normal est. LV filling pressure. Normal global longitudinal strain rate (more negative than -18%). 2. Normal right ventricular size and systolic function. 3. Normal LA, RA, aorta and IVC. 4. No significant valvular abnormalities. 5. Normal mean PA pressure based on PV acceleration time. 6. No pericardial effusion. COMPARISONS: Compared to prior study completed on 08/18/2023. No change compared to prior study. ATTESTATION: I have reviewed and interpreted the pertinent images and measurements of this study. I attest to the conclusions in the final report that is provided above. DISCLAIMER: The study images and the final report will be retained in the patient chart by the Echo Laboratory for the legally required time period. This chart constitutes the legal record of any testing performed. Electronically Signed By: eDshawn Bansal MD 03/01/2024 3:00:13 PM TRUCK CHAUFFEUR Electronically Signed By: Jose Estevez MD 03/02/2024 3:02:49 PM TRUCK CHAUFFEUR Procedure Note Jose Estevez MD - 03/02/2024 [facility] Cardiac [facility] [place] [address] [place] [address] Transthoracic Echocardiographic Report Patient Name: SEJAL HOUSTON L : 1975 (48y 4m) Gender: F Study Date: 03/01/2024 11:03:28 AM Ht(Inch): 63 Wt(Lb): 143.08 BSA: 1.7 Auto Service Dispatcher: raul mena Location: [facility] Order Provider: DICK SALMERON Heart Rate: 68 BMI: 25.34 BP: 123 / 75 Quality: The study images were oftechnically good quality. Ref Provider: DICK SALMERON PROCEDURES: Echocardiographic Report: ([id number], [id number]) Transthoracic complete echo withstrain imaging, 2D, spectral and tissue Doppler, color flow Doppler, M-mode. INDICATIONS: I49.01 Ventricular fibrillation and I46.9 Cardiac arrest, causeunspecified. MEASUREMENTS: 2D/MM Value Range DopplerValue Range LVIDd 2D 4.17 cm [ 3.80 - 5.20 ] LVOT Peak Vel1.00 m/s [ 0.70 - 1.10 ] LVIDs 2D 3.05 cm [ 2.20 - 3.50 ] LVOT Peak PG4.00 IVSd 2D 0.65 cm [ 0.60 - 0.90 ] LVOT Mean PG1.94 mmHg LVPWd 2D 0.68 cm [ 0.60 - 0.90 ] LVOT VTI18.65 cm LV Thickness Ratio 0.96 [ 1.50 - 3.00 ] LVOT Diam1.97 cm LV FS 2D 26.78 % [ 27.00 - 45.00 ] MV E Peak Vel0.69 m/s [ 0.60 - 1.30 ] LV Mass 2D 81.01 g MV A Peak Vel0.57 m/s [ 1.00 - 1.20 ] LV Mass Index 2D 47.65 g/m2 MV E/A1.22 ratio [ 0.80 - 1.50 ] RWT 0.33 MV Decel Nyvg704.78 msec [ 104.00 - 258.00 ] LV EDV 2D 77.26 Med E` Vel11.79 cm/sec [ 8.00 - 15.00 ] LV ESV 2D 36.44 Lat E` Vel12.21 cm/sec [ 10.00 - 15.00 ] EF Teich 2D 53 % [ 54 - 74 ] Average E/E`5.75 LV EDV Index 40.31 ml/m2 RV S`12.04 cm/sec EDV Mod 2C 70.25 ml [ 41.00 - 133.00 ] PV Peak Vel0.53 m/s [ 0.40 - 0.80 ] EDV Mod 4C 65.74 ml PV Peak PG1.12 EDV Mod BP 68.52 ml [ 46.00 - 106.00 ] PV Accel Xlsv193.65 msec [ 103.00 - 142.00 ] ESV Mod 2C 30.44 ml PV Accel Aaqmu141.38 cm/sec2 ESV Mod 4C28.41 ml ESV Mod BP 29.66 ml [ 14.00 - 42.00 ] EF Mod 2C 57 % EF Mod 4C 57 % EF Mod BP 57 % [ 54 - 74 ] LV GLS -18.7 % LA Length 2C3.79 cm LA Length 4C4.98 cm LA Volume 2C30.1 ml LA Volume 4C32.2 ml LA Volume BP39.54 ml LA Volume Index23.26 ml/m2 RV Base Dimen 2D 3.3 cm [ 2.5 - 4.2 ] TAPSE 2.01 cm [ 1.71 - 5.00 ] RA Area 10.12 cm/m2 [ 10.00 - 18.00 ] RA Xijsxq27.25 ml RA Volume Index13.09 ml/m2 IVC Diam1.11 sec AoR Diam 2D 2.65 cm [ 2.70 - 3.70 ] Ao Root Index1.56 cm/m2 - FINDINGS: Left Ventricle: Normal left ventricular size based on volume index. NormalLV geometry. Normal left ventricular systolic function. The Ejection Fraction(Frey's) is measured at 57 %. Left ventricular diastolic parameters are consistent with normaldiastolic function. The average global longitudinal strain rate is normal (morenegative than -18%). Regional Wall Motion: There are no regional wall motion abnormalities. Right Ventricle: Normal right ventricular size. Normal right ventricularsystolic function. Left Atrium: The left atrium is normal in size. Right Atrium: The right atrium is normal in size. Atrial Septum: The interatrial septum is normal in appearance. Mitral Valve: The mitral valve demonstrates normal leaflet morphology andfunction. Aortic Valve: Trileaflet aortic valve. Tricuspid Valve: There is trivial tricuspid regurgitation. PASP cannot beevaluated due to lack of adequate TR jet. Pulmonic Valve: Normal appearance of the pulmonic valve leaflets withoutevidence stenosis. Pericardium: Normal pericardium without evidence of pericardialeffusion. Aorta: The aortic root is normal in size when indexed. IVC: The inferior vena cava is of normal size. Rhythm: The rhythm during the study was normal sinus rhythm. CONCLUSIONS: 1. Normal left ventricular cavity size and wall thickness. Normal leftventricular systolic function, LVEF 57 %. Normal diastolic function with normal est.LV filling pressure. Normal global longitudinal strain rate (more negative than-18%). 2. Normal right ventricular size and systolic function. 3. Normal LA, RA, aorta and IVC. 4. No significant valvular abnormalities. 5. Normal mean PA pressure based on PV acceleration time. 6. No pericardial effusion. COMPARISONS: Compared to prior study completed on 08/18/2023. No change compared [facility] study. ATTESTATION: I have reviewed and interpreted the pertinent images and measurements ofthis study. I attest to the conclusions in the final report that is provided above. DISCLAIMER: The study images and the final report will be retained in the patientchart by the Echo Laboratory for the legally required time period. This chart constitutesthe legal record of any testing performed. Electronically Signed By: Deshawn Bansal MD 03/01/2024 3:00:13 PM TRUCK CHAUFFEUR Electronically Signed By: Jose Estevez MD 03/02/2024 3:02:49 PM TRUCK CHAUFFEUR us Dick Salmeron MD CV ECHO PROCEDURES Irene l Result * DEVICE CHECK - REMOTE (02/24/2024 9:43 AM TRUCK CHAUFFEUR) Anatomical Region Laterality Modality Other 02/24/2024 9:43 AM TRUCK CHAUFFEUR Narrative 02/24/2024 8:17 AM TRUCK CHAUFFEUR Interpretation Summary: Battery and Leads (BL) Normal parameters noted on battery and lead(s) --- 92 % remaining Presenting Rhythm (HI) Ventricular Sensing (VS) --- rate 110's Arrhythmic events (AE) No new arrhythmic events in monitoring period Transmission Information (TI) Device Summary Report Procedure Note Francisco Javier Narayanan MD - 02/24/2024 Interpretation Summary: Battery and Leads (BL) Normal parameters noted on battery and lead(s) --- 92 % remaining Presenting Rhythm (HI) Ventricular Sensing (VS) --- rate 110's Arrhythmic events (AE) No new arrhythmic events in monitoring period Transmission Information (TI) Device Summary Report Francisco Javier Narayanan MD CV CARDIAC SERVI KANDICE PROCEDURES Final Result from Last 3 Months Insurance [facility] ANTHEM ACCESS CHOICE ANTHEM ACCESS CHOICE Advance Directives For more information, please contact: [phone] * Full Code (Latest Code Status on File) Date Activated Date Inactivated Comments 04/04/2023 6:53 AM 04/16/2023 3:35 PM * Full Code Date Activated Date Inactivated Comments 12/16/2022 3:10 PM 12/17/2022 10:36 PM Care Teams Hoof And Shoe Inspector Relationship Specialty Start Date End Date Sridhar Britt MD PCP - General 04/08/18
--- OUTSIDE RECORDS SUMMARY | 2024-03-31 17:06 | XMS_ITS | Referral Summary ---
Author Organization [facility] [place] [facility] Address [facility] [place] [address] Care Team Providers Care Package Center Supervisor Name Role Phone Sridhar Britt MD Primary Care Provider Encounters Date Type Department Care Team Description 03/01/2024 10:45 AM PATENT LEATHER SORTER - 03/01/2024 11:59 PM PATENT LEATHER SORTER Hospital Encounter [facility] Cardiac Diagnostic Lab [address] [facility] 8th [place] [id number] Ventricular fibrillation (CMS/HCC) (HCC); Cardiac arrest (HCC) Discharge Disposition: Discharge to home or self care 02/24/2024 Orders Only [facility] Cardiology [address] [facility] 8th [place] [address] [place] [address] Francisco Javier Narayanan MD from Last 3 Months Allergies Active Allergy Reactions Criticality Noted Date [...] 12/16/2020 Assessment & Plan (12/16/2020 9:36 AM PATENT LEATHER SORTER): Patient describes episodic headaches typically brought on by emotional stressors with historical characteristics consistent with muscle contraction type headache. She enjoys a normal neurological examination at this time. I would recommend afsu-jaf-dwnraxm anti-inflammatories on an as-needed basis if the headaches do recur. Generalized idiopathic epile psy and epileptic syndromes, not intractable, without status epilepticus 11/01/2019 Assessment & Plan (12/16/2020 9:35 AM PATENT LEATHER SORTER): Patient continues on lamotrigine 100 mg b.i.d. with good tolerability and no seizures reported over the past year. I have reviewed teratogenicity and suggested use of an xlgb-bse-ueibpdy multivitamin with folic acid an effort to [...] will see her back in 1 year. Social History Tobacco Use Types Packs/Day Years Used Date Smoking Tobacco: Never Smokeless Tobacco: Never Tobacco Cessation:Counseling Given: Not Answered Alcohol Use Standard Drinks/Week Comments Defer 0 (1 standard drink = 0.6 oz pur e alcohol) [facility] Utilities Answer Date Recorded In the past [...] often do you attend chur ch or orthodox services? Patient declined 04/18/2023 Do you belong to any clubs o r organizations such as orthodoxy groups, unions, fraternal or athletic groups, or [...] place to sleep or slept in a residential (including now)? No 04/18/2023 Personal Safety Answer Date Recorded Have you ever been in or are you currently in a harmful physical or emotional relationship or is someone making you feel afraid or unsafe? Denies 09/08/2023 Comments No Sex and Gender Information Value Date Recorded Sex Assigned at Not on file Legal Sex Female 4:51 AM PATENT LEATHER SORTER Gender Identity Not on file Sexual Orientation Not on file Last Filed Vital Signs Vital Sign Reading [...] 11/24/2023 11:20 AM CDT Plan of Treatment Not on file Medical Devices Implanted Type Area Application Lead Device Identifier Shelf Expiration Date Model / Serial / Lot 3FLOZ C.[employer]. [facility] S-Icd 83.1x69.1mm Pulse Generator Battery Subcutaneous A219 - [id number] - [id number] Implanted:Qty: 1 on 04/14/2023 by Francisco Javier Narayanan MD at [facility] ICD [employer] C.[employer].M. 02/20/2025 [id number] / [id number] / [place] Emblem S-Icd Subcutaneous Electrode Defibrillator 3501 - [id number] - [id number] Implanted:Qty: 1 on 04/14/2023 by Francisco Javier Narayanan MD at [facility] Subcutaneous Defibrillator Electrode [employer] 02/15/2025 3501 / [id number] / Procedures Procedure Name Priority Date/Time Associated Diagnosis Comments TRANSTHORACIC ECHO (TTE) COMPLETE W DOPPLER/CF WO CONTRAST Routine 03/01/2024 11:52 AM PATENT LEATHER SORTER Ventricular fibrillation (CMS/HCC) (HCC) Cardiac arrest (HCC) DEVICE CHECK - REMOTE Routine 02/24/2024 9:43 AM PATENT LEATHER SORTER from Last 3 Months Results * TRANSTHORACIC ECHO (TTE) COMPLETE W DOPPLER/CF WO CONTRAST (03/01/2024 11:52 AM PATENT LEATHER SORTER) LV EF % CONS SCIMAGE Anatomical Region Laterality Modality Ultrasound 03/01/2024 11:0 3 AM PATENT LEATHER SORTER Narrative 03/02/2024 3:03 PM PATENT LEATHER SORTER [facility] [place] [address] Transthoracic Echocardiographic Report Patient Name: SEJAL HOUSTON L : 1975 (48y 4m) Gender: F Study Date: 03/01/2024 11:03:28 AM Ht(Inch): 63 Wt(Lb): 143.08 BSA: 1.7 Print Developer Automatic: raul mena Location: [facility] Order Provider: DICK SALMERON Heart Rate: 68 BMI: 25.34 BP: 123 / 75 Quality: The study images were of technically good quality. Ref Provider: DICK SALMERON PROCEDURES: Echocardiographic Report: ([id number], [id number]) Transthoracic complete echo with strain imaging, 2D, [...] ESV Mod 2C 30.44 ml PV Accel Uinta 323.38 cm/sec2 ESV Mod 4C 28.41 ml [...] By: Deshawn Bansal MD 03/01/2024 3:00:13 PM PATENT LEATHER SORTER Electronically Signed By: Jose Estevez MD 03/02/2024 3:02:49 PM PATENT LEATHER SORTER Procedure Note Jose Estevez MD - 03/02/2024 [facility] [place] [address] [place] [address] Transthoracic Echocardiographic Report Patient Name: SEJAL HOUSTON L : 1975 (48y 4m) Gender: F Study Date: 03/01/2024 11:03:28 AM Ht(Inch): 63 Wt(Lb): 143.08 BSA: 1.7 Print Developer Automatic: raul mena Location: [facility] Order Provider: DICK SALMERON Heart Rate: 68 BMI: 25.34 BP: 123 / 75 Quality: The study images were oftechnically good quality. Ref Provider: DICK SALMERON PROCEDURES: Echocardiographic Report: ([id number], [id number]) Transthoracic complete echo withstrain imaging, 2D, spectral [...] - 1.50 ] RWT 0.33 MV Decel Xwgt399.78 msec [ 104.00 - 258.00 ] LV [...] [ 46.00 - 106.00 ] PV Accel Yvlu675.65 msec [ 103.00 - 142.00 ] ESV Mod 2C 30.44 ml PV Accel Mmxxp366.38 cm/sec2 ESV Mod 4C28.41 ml ESV Mod [...] cm/m2 [ 10.00 - 18.00 ] RA Lxlunj29.25 ml RA Volume Index13.09 ml/m2 IVC Diam1.11 [...] study completed on 08/18/2023. No change compared [facility] study. ATTESTATION: I have reviewed and [...] By: Deshawn Bansal MD 03/01/2024 3:00:13 PM PATENT LEATHER SORTER Electronically Signed By: Jose Estevez MD 03/02/2024 3:02:49 PM PATENT LEATHER SORTER Dick Salmeron MD CV ECHO PROCEDURES Irene l Result * DEVICE CHECK - REMOTE (02/24/2024 9:43 AM PATENT LEATHER SORTER) Anatomical Region Laterality Modality Other 02/24/2024 9:43 AM PATENT LEATHER SORTER Narrative 02/24/2024 8:17 AM PATENT LEATHER SORTER Interpretation Summary: Battery and Leads (BL) Normal parameters noted on battery and lead(s) --- 92 % remaining Presenting Rhythm (TN) Ventricular Sensing (VS) --- rate 110's Arrhythmic events (AE) No new arrhythmic events in monitoring period Transmission Information (TI) Device Summary Report Procedure Note Francisco Javier Naaryanan MD - 02/24/2024 Interpretation Summary: Battery and Leads (BL) Normal parameters noted on battery and lead(s) --- 92 % remaining Presenting Rhythm (TN) Ventricular Sensing (VS) --- rate 110's Arrhythmic events (AE) No new arrhythmic events in monitoring period Transmission Information (TI) Device Summary Report Francisco Javier Narayanan MD CV CARDIAC SERVI KANDICE PROCEDURES Final Result from Last 3 Months Insurance ANTHEM ACCESS CHOICE ANTHEM ACCESS CHOICE Advance Directives For more information, please contact: [phone] * Full Code (Latest Code Status on File) Date Activated Date Inactivated Comments 04/04/2023 6:53 AM 04/16/2023 3:35 PM * Full Code Date Activated Date Inactivated Comments 12/16/2022 3:10 PM 12/17/2022 10:36 PM Care Teams Package Center Supervisor Relationship Specialty Start Date End Date Sridhar Britt MD PCP - General 04/08/18
--- OUTSIDE RECORDS SUMMARY | 2024-03-31 17:06 | XMS_ITS ---
Author Organization [facility] Address [address] [place] [address] Care Team Providers Care School Crossing Guard Supervisor Name Role Phone Sridhar Britt MD Primary Care Provider Dr. Jose Armstrong Unavailable [phone] Allergies Allergen (clinical drug ingredient) Drug/Non Drug Allergy documented on EMR Reaction Allergy Type Onset Date Status amoxicillin Amoxicillin rash Drug Allergy Act tiana REASON FOR VISIT Epilepsy follow-up Medications Medication SIG (Take, Route, Frequency, Duration) [...] Status W/U Status Risk Notes Problem Epilepsy (08045495) Epilepsy, unspecified, not intractable, without status epilepticus (G40.909) Active confirmed Vital Signs Blood pressure systolic 94 mm Hg 10/06/19 24 Blood pressure diastolic 68 mm Hg 024 Height 62 in 10/06/2023 Weight 140.8 lbs 10/06/2023 BMI 25.75 kg/m2 10/06/2023 Oximetry 100 % 10/06/2023 Encounters Encounter Location Date Provider Diagnosis [facility] [place] [address] [place] [address] 10/06/2023 Jose Forman Epilepsy, unspecified, not intractable, without status epilepticus G40.909 Assessments Encounter Date Diagnosis (ICD Code) Assessment Notes Treatment Notes Treatment Clinical Notes Section Notes 10/06/2023 Epilepsy, unspecified, not intractable, without status epilepticus (ICD-10 - G40.909) Continue current doses of Lamotrigine and Briviact. Medically cleared to resume driving. Stable, doing well. She is > 6 months seizure-free and on a stable AED regimen. She is medically cleared to resume driving Plan Of Treatment Medication Medication Name Sig Start Date Stop Date Notes Briviact 50 MG 1 tablet orally Twice a day for 30 days lamoTRIgine 100 MG 0.5 tab in AM, 1.5 t ab in PM orally with meals as directed for 30 days Treatment Notes Assessment Notes Epilepsy, unspecified, not i ntractable, without status epilepticus Continue current doses of Lamotrigine an d Briviact. Medically cleared to resume driving. Next Appt Details Follow Up: 6 Months, Reason: Evaluation and Management Progress Notes * Denisse HOUSTONOB:1975 (47 yo F)Acc No.[id number]:10/06/2023 Progress Notes Patient: Sejal DE LOS SANTOS Provider: Shawna Forman MD :1975 A ge:47 Y S ex:Female Date:10/06/2023 Address:[address] [place], [place] [id number] Pcp:Sridhar Britt MD Subjective: * Chief Complaints: * E pilepsy follow-up * HPI: * Introduction: I had the pleasure of seeing Ita Houston, who presented for follow-up for epilepsy. * Initial History: INITIAL VISIT HISTORY: She is a 47 year old woman with a history of epilepsy, prior h/o cardiac arrest s/p resuscitation without sequelae in 12/2022. She is treated with lamotrigine daily. She is here for a second opinion regarding epilepsy. She developed epilepsy in childhood at age 12. She has been through various prior AEDs [Tegretol (allergic reaction), Dilantin (stopping working), Keppra (stopped working), Depakote (stopped working)]. When she was first put on lamotrigine back about 15 years it seemed to work very well and she could go for a few years without a seizure. Her reports that when she has a seizure now it's a really bad one , citing the one in 12/2022. She takes 250 mg daily; this is the highest tolerable dose because higher doses cause too much dizziness; she doesn't know if drug level has been measured. Seizures are described as follows: starts with a brief dizzy, then per she groans and her body tenses up, she often bites her lip or tongue, usually lasts about 20-30 seconds, then she is excessively fatigued, then afterwards she is confused for a few minutes although has had episodes where she was confused for hours; no staring, no lip smacking; in 12/2022 she had a generalized seizure which led to a cardiac arrest. She is going through a cardiac evaluation and has had an echocardiogram, cardiac catheterization, and rhythm monitoring. She denies premature ; serious head trauma, meningitis, stroke or other brain injury; no first degree relative with epilepsy LAST VISIT HISTORY: Last visit was on 0 06/01/23. In the interim, lamotrigine level was 19.7. Lamotrigine 50 mg - 150 mg; Briviact 50 mg bid. She is tolerating these doses. She has not had recurrent seizures. * Previous Impression & Plan: Notes Previous Diagnoses: 1. Epilepsy, unspecified, intractable, without status epilepticus - G40.919 (Primary) 2. Encounter for therapeutic drug level monitoring - Z51.81 Previous Recommendations: 1. Continue current doses of Briviact and Lamictal. F/u in 7 weeks, this will be 6 months from last seizure, if remains stable/seizure-free will clear driving at that time. 2. Lamotrigine level reviewed, therapeutic. * Interval History: Notes Interval History: Last visit was on 0 08/18/2023. We made no changes to medication regimen at that visit. She remains on Lamotrigine 200 mg daily and Briviact 100 mg daily. It has now been > 6 months from last seizure. She is doing well on current medication regimen without recurrent seizure or side effects.? She is here to clear resuming driving. . * ROS: C ONSTITUTIONAL: Positive for P atient denies fevers, chills, sweats, unintended weight loss, loss of appetite, or chronic fatigue. E NT: Positive P atient denies ear fullness or pain or sinus pain. R ESPIRATORY: Positive for P atient denies shortness of breath or wheezing. O PHTHALMOLOGY: Positive for R eviewed and except as mentioned above in the HPI is negative. E NDOCRINOLOGY: Positive for P atient denies heat intolerance, cold intolerance, polyuria, elevated blood sugar, chronic fatigue. C ARDIOLOGY: Positive for P atient denies dizziness, palpitations, or chest pain. G ASTROENTEROLOGY: Positive for P atient denies diarrhea, melena, bloody stools, or abdominal pain. U ROLOGY: Positive for P atient denies urinary incontinence or urinary dysfunction. D ERMATOLOGY: Positive for P atient denies rash or hives. ? N EUROLOGY: Positive for R eviewed and except as mentioned above in the HPI is negative. H EMATOLOGY/LYMPH: Positive for P atient denies history of excessive bruising or bleeding diasthesis. M USCULOSKELETAL: Positive for P atient denies extremity joint pain or swelling. P SYCHOLOGY: Positive for R eviewed and except as discussed above in the HPI is otherwise negative. * Medical History: * Surgical History: S /p ICD * Hospitalization/Major Diagno stic Procedure: N o Hospitalization History. * Family History: No epilepsy in first degree relatives. * Social History: T obacco Control (Standard) Tobacco use: N onsmoker N on smoker, no EtOH abuse, no illicit drug use. * Medications: T akingBriviact 100 MG Tablet 1/2 orally 2 times a day lamoTRIgine 100 MG Tablet 0.5 tab in AM, 1.5 tab in PM orally as directed Taking Briviact 100 MG Tablet 1/2 orally 2 times a day Taking lamoTRIgine 100 MG Tablet 0.5 tab in AM, 1.5 tab in PM orally as directed Not-Taking/PRNAmiodarone HCl 400 MG Tablet 1 tab(s) orally once a day Metoprolol Succinate ER 25 MG Tablet Extended Release 24 Hour 1 tab(s) orally once a day Not-Taking/PRN Amiodarone HCl 400 MG Tablet 1 tab(s) orally once a day Not-Taking/PRN Metoprolol Succinate ER 25 MG Tablet Extended Release 24 Hour 1 tab(s) orally once a day DiscontinuedLaMICtal 25 MG Tablet 5 tab(s) orally 2 times a day Medication List reviewed and reconciled with the patientDiscontinued LaMICtal 25 MG Tablet 5 tab(s) orally 2 times a day Medication List reviewed and reconciled with the patient * Allergies: A moxicillin: iramno[Allergies Verified] Objective: * Vitals: B P:94/68mm Hg, HR:75/min, Pulse Oximetry:100%, Ht: 62 in, Wt: 140.8 lbs, BMI:25.75Index. * Examination: G eneral examination: General appearance: P leasant, well-developed, well-nourished. HEENT: P upils equal, round and reactive to light. Neurologic exam: A lert and oriented x 4. Fluent speech. Intact recall, fund of knowledge. Appropriate affect. Cranial nerves II-XII intact; subtle end-gaze nystagmus. Cerebellar testing with subtle bilateral postural/action tremor. Gait is steady. Assessment: * Assessment: 1. E pilepsy, unspecified, not intractable, without status epilepticus - G40.909 (Primary) Stable, doing well. She is > 6 months seizure-free and on a stable AED regimen. She is medically cleared to resume driving Plan: * Treatment: * Procedure Codes: G 8427 DOC MEDS VERIFIED W/PT OR RE * Follow Up: 6 Months (Reason: Evaluation and Management) * Billing Information: * Visit Code: 94907 Office Visit, Est Pt., Level 3. Modifiers: 25 * Procedure Codes: G8427 DOC MEDS VERIFIED W/PT OR RE. * Sign off status: Completed true * Provider: Shawna Forman MD Date: 0 10/06/2023 Generated for Apollo boyd/Jazmín/Donna on: 03/31/2024 05:06 PM LOGISTICS CENTER MANAGER History and Physical Notes * HPI (History of Present Illness) Category Sub-Category Detail Notes Category Not es *Introduction I had the pleasure of seeing Sejal Houston, who presented for follow-up for epilepsy *Initial History INITIAL VISIT HISTORY: She is a 47 year old woman with a history of epilepsy, prior h/o cardiac arrest s/p resuscitation without sequelae in 12/2022. She is treated with lamotrigine daily. She is here for a second opinion regarding epilepsy. She developed epilepsy in childhood at age 12. She has been through various prior AEDs [Tegretol (allergic reaction), Dilantin (stopping working), Keppra (stopped working), Depakote (stopped working)]. When she was first put on lamotrigine back about 15 years it seemed to work very well and she could go for a few years without a seizure. Her reports that when she has a seizure now it's a really bad one , citing the one in 12/2022. She takes 250 mg daily; this is the highest tolerable dose because higher doses cause too much dizziness; she doesn't know if drug level has been measured. Seizures are described as follows: starts with a brief dizzy, then per she groans and her body tenses up, she often bites her lip or tongue, usually lasts about 20-30 seconds, then she is excessively fatigued, then afterwards she is confused for a few minutes although has had episodes where she was confused for hours; no staring, no lip smacking; in 12/2022 she had a generalized seizure which led to a cardiac arrest. She is going through a cardiac evaluation and has had an echocardiogram, cardiac catheterization, and rhythm monitoring. She denies premature ; serious head trauma, meningitis, stroke or other brain injury; no first degree relative with epilepsy LAST VISIT HISTORY: Last visit was on 06/01/23. In the interim, lamotrigine level was 19.7. Lamotrigine 50 mg - 150 mg; Briviact 50 mg bid. She is tolerating these doses. She has not had recurrent seizures *Previous Impression & Plan Notes Previous Diagnoses:1. Epilep sy, unspecified, intractable, without status epilepticus - G40.919 (Primary)2. Encounter for therapeutic drug level monitoring - Z51.81Previous Recommendations:1. Continue current doses of Briviact and Lamictal. F/u in 7 weeks, this will be 6 months from last seizure, if remains stable/seizure-free will clear driving at that time.2. Lamotrigine level reviewed, therapeutic *Interval History Notes Interval Histo ry: Last visit was on 08/18/2023. We made no changes to medication regimen at that visit. She remains on Lamotrigine 200 mg daily and Briviact 100 mg daily. It has now been > 6 months from last seizure. She is doing well on current medication regimen without recurrent seizure or side effects. She is here to clear resuming driving. Examination Category Sub-Category Detail Notes Category Not es General examination HEENT: Pupils equal , round and reactive to light General appearance: Pleasant, well-devel oped, well-nourished Neurologic exam: Alert and oriented x 4. Fluent speech. Intact recall, fund of knowledge. Appropriate affect. Cranial nerves II-XII intact; subtle end-gaze nystagmus. Cerebellar testing with subtle bilateral postural/action tremor. Gait is steady
--- OUTSIDE RECORDS SUMMARY | 2024-03-31 17:06 | XMS_ITS | Encounter Summary ---
Author Organization [facility] Address [address] [place] [address] Care Team Providers Care Food Technology Teacher Name Role Phone Unavailable Primary Care Provider Unavailabl e Encounter Details Date Type Department Care Team (Late st Contact Info) Description 03/31/2024 Mobile Encounter [facility] Neurology [address] [place] [phone] Maribell Brar MD [address] [place] [phone] Social History Tobacco Use Types Packs/Day Years Used Date Smoking Tobacco: Never Assessed Comments Unknown Sex and Gender Information Value Date Recorded Sex Assigned at Female 01/27/2024 8:02 PM DANCE ARTIST Legal Sex Female 2:32 PM DANCE ARTIST Gender Identity Female 01/27/2024 8:02 PM DANCE ARTIST Sexual Orientation Straight 01/27/2024 8: 02 PM DANCE ARTIST documented as of this encounter Progress Notes * Maribell Brar MD - 03/31/2024 4:28 PM CST Received call from patient regarding her running out of her seizure medication. She is not yet established at our practice but has an upcoming appointment with Dr. Forman next week. We have no documentation of her seizure medication or dosing on file. I told her that since she is not established yet and I have no records to go off of, I cannot provide a refill of her medication today. I told her to reach out to her PCP for refills in the interim or she can go to the emergency room or urgent care and get it refilled through them. Patient voiced understanding. E ARTIST documented in this encounter Plan of Treatment Upcoming Encounters Date Type Department Care Team (Late st Contact Info) Description 04/02/2024 10:00 AM DANCE ARTIST Office Visit [facility] Neurology [facility] [address] [facility] [address] [place] [address] [place] [id number] [address] documented as of this encounter Visit Diagnoses Not on filedocumented in this encounter
--- OUTSIDE RECORDS SUMMARY | 2024-03-31 17:06 | XMS_ITS | Clinical Summary ---
Author Organization [facility] Address [address] [place] [address] Care Team Providers Care Manager Of Internal Name Role Phone Sridhar Britt MD Primary Care Provider Source Comments [facility],non-owned Affiliates and Associated Physician Practices is amultiple site organization consisting of ambulatory clinics and hospital sitesin [place], [place], [place] and [place]. This disclosure is being madepursuant to the Care Everywhere program and may not contain all information available regarding this patient. Last updated 17.[facility] Allergies Active Allergy Reactions Criticality Noted Date Comments Penicillins Urticaria Medium 12/13/2017 Medications * Be aware that medications may not be up to date on this document. Alwaysverify current medications with the patient. Medication Sig Dispensed Refills Start Date End Date Status lamoTRIgine (LAMICTAL) 100 MG tablet Take 100 mg by mouth 2 times daily Active Active Problems Problem Noted Date Diagnosed Date Atypical chest pain 12/13/2017 Overview (12/13/2017): 12/25 stress EKG 6:19--85% maximal heart rate, no ischemia, exercise tolerance 80% predicted Lightheadedness 12/12/2017 Overview (01/16/2018): 10/25 Holter: ? Results 12/25 EKG: SB at 53, RSR in V1/V2, ERWP, intervals [phone] 12/25 Event recorder: Chest pain , shortness of breath , lightheaded, correlated SR at 64-99, rare PVCs Family History Relation Name Status Comments Brother Alive no heart dz Daughter 1 Alive no heart dz Daughter 2 Alive no heart dz Father Alive no heart dz Maternal Grandfather Alive CABG af ter age 65 Maternal Uncle Alive CABG in 50s Mother Alive no heart dz Social History Tobacco Use Types Packs/Day Years Used Date Smoking Tobacco: Never Smokeless Tobacco: Never Alcohol Use Standard Drinks/Week Comments Yes 0 (1 standard drink = 0.6 oz pur e alcohol) 0-1 on holidays Sex and Gender Information Value Date Recorded Sex Assigned at Not on file Gender Identity Not on file Sexual Orientation Not on file Last Filed Vital Signs Vital Sign Reading Time Taken Comments Blood Pressure 110/70 10/15/2020 6:20 PM CDT Pulse 70 10/15/2020 6:20 PM CDT Temperature 36.8 C (98.2 F) 10/15/2020 6:20 PM CDT Respiratory Rate 16 10/15/2020 6:20 PM CDT Oxygen Saturation 98% 10/15/2020 6:20 PM CDT Inhaled Oxygen Concentration - - Weight 61.2 kg (135 lb) 10/15/2020 6:20 PM CDT Height 160 cm (5' 3 ) 10/15/2020 6:20 PM CDT Body Mass Index 23.91 10/15/2020 6:20 PM CDT Plan of Treatment Health Maintenance Due Date Last Done Comments COLOGUARD (AGES 45-75) - COL ON CA SCREENING 1975 COLON MONITORING 1975 COLONOSCOPY - COLON CA SCREENING 1975 CT COLONOGRAPHY - COLON CA SCREENING 1975 Colorectal Cancer Screening 1975 FIT - COLON CA SCREENING 1975 FLEX SIG - COLON CA SCREENING 1975 LIPID TESTING 1975 MAMMOGRAM 1975 PAP SMEAR 1975 HIV SCREENING 10/19/1990 HEPATITIS C SCREENING 10/15/1993 DTAP/TDAP/TD VACCINES (1 - Tdap) 10/19/1994 HEPATITIS B VACCINE (1 of 3 - 19+ 3-dose series) 10/19/1994 COVID-19 VACCINE (3 - 2023-2 5 season) 2023 05/09/2020, 04/20/2020 INFLUENZA VACCINE (#1) 2023 11/20/2018 DEPRESSION SCREENING 02/08/2024 ZOSTER VACCINE (1 of 2) 10/19/2025 HIB VACCINE Aged Out No longer eligi ble based on patient's age to complete this topic HPV VACCINE Aged Out No longer eligi ble based on patient's age to complete this topic MENINGOCOCCAL (Group B) VACCINE Aged Out No longer eligible b ased on patient's age to complete this topic MENINGOCOCCAL VACCINE Aged Out No valery fabricio eligible based on patient's age to complete this topic PNEUMOCOCCAL VACCINE Aged Out No long er eligible based on patient's age to complete this topic Care Teams Manager Of Internal Relationship Specialty Start Date End Date Sridhar Britt MD [address] [place] [address] [place] [id number] PCP - General Internal Medicine 12/12/17
--- OUTSIDE RECORDS SUMMARY | 2024-03-31 17:06 | XMS_ITS | Encounter Summary ---
Author Organization [facility] Healthcare Address [address] [place] [address] Care Team Providers Care Monument Erector Name Role Phone Sridhar Britt MD Primary Care Provider Dianne Fontana RN Unavailable [phone] Encounter Details Date Type Department Care Team (Late st Contact Info) Description 12/16/2022 Orders Only [facility] Cardiac Catheterization Lab [address] [place] [address] Amador Hong MD [address] [place] [address] Cardiac arrest (HCC) (Primary Dx) Social History Tobacco Use Types Packs/Day Years Used Date Smoking Tobacco: Never Smokeless Tobacco: Never Alcohol Use Standard Drinks/Week Comments Defer 0 (1 standard drink = 0.6 oz pur e alcohol) [facility] Utilities Answer Date Recorded In the past 12 months has [employer], gas, oil, or water [employer] threatened to shut off services in your home? No 12/17/2022 Social Connection and Isolat ion Panel [NHANES] Answer Date Recorded In a typical week, how many times do you talk on the phone with family, friends, or neighbors? More than three times a week 12/17/2022 How often do you get togethe r with friends or relatives? More than three times a week 12/17/2022 How often do you attend [facility] or protestant services? Patient declined 12/17/2022 Do you belong to any clubs o r organizations such as nondenominational groups, unions, fraternal or athletic groups, or school groups? Patient declined 12/17/2022 How often do you attend meet ings of the clubs or organizations you belong to? Patient declined 12/17/2022 Are you , , di vorced, , never , or living with a partner? 12/17/2022 AUDIT-C Answer Date Recorded Q1: How often do you have a drink containing alc ohol? Monthly or less 12/16/2022 Q2: How many drinks containi ng alcohol do you have on a typical day when you are drinking? 1 or 2 12/16/2022 Q3: How often do you have si x or more drinks on one occasion? Less than monthly 12/16/2022 Overall Financial Resource Strain (CARDIA) Answe r Date Recorded How hard is it for you to pa y for the very basics like food, housing, medical care, and heating? Not hard at all 12/17/2022 Hunger Vital Sign Answer Date Recorded Within the past 12 months, y ou worried that your food would run out before you got the money to buy more. Never true 12/18/19 23 Within the past 12 months, t he food you bought just didn't last and you didn't have money to get more. Never true 12/17/2022 PRAPARE - Transportation Answer Date Re corded In the past 12 months, has l ack of transportation kept you from medical appointments or from getting medications? No 12/08 In the past 12 months, has l ack of transportation kept you from meetings, work, or from getting things needed for daily living? No 12/17/2022 Housing Stability Vital Sign Answer Davon e Recorded In the last 12 months, was t here a time when you were not able to pay the mortgage or rent on time? No 12/17/2022 In the last 12 months, how many places have you lived? 1 12/17/2022 In the last 12 months, was t here a time when you did not have a steady place to sleep or slept in a retirement (including now)? No 12/17/2022 Comments Unknown Sex and Gender Information Value Date Recorded Sex Assigned at Not on file Legal Sex Female 4:51 AM [employer] Gender Identity Not on file Sexual Orientation Not on file documented as of this encounter Functional Status * Audit-C Score Answer Date of Assessment Author 2 12/16/2022 3:12 PM Suyapa Reyes RN * Question Answer Date of Assessment Author Q1: How often do you have a drink containing alcohol? Monthly or less 12/16/2022 3:12 PM Suyapa Reyes RN Q2: How many drinks containing alcohol do you have on a typical day when you are drinking? 1 or 2 12/16/2022 3:12 PM Suyapa Reyes RN Q3: How often do you have six or more drinks on one occasion? Less than monthly 12/16/2022 3:12 PM Suyapa Reyes RN documented as of this encounter Plan of Treatment Not on file documented as of this encounter Visit Diagnoses Diagnosis Cardiac arrest (HCC)- Primary Cardiac arrest documented in this encounter Additional Health Concerns Infection Onset Date Last Indicated Resolved Time COVID: Suspected 04/04/2023 04/04/2023 04/04/2023 11:39 AM [employer] Influenza, adult 04/04/2023 04/04/2023 04/11/2023 9:41 AM [employer] documented as of this encounter Care Teams Monument Erector Relationship Specialty Start Date End Date Sridhar Britt MD PCP - General 04/08/18 Dianne Fontana RN [address] [facility] [address] [place] [id number] [employer] Outpatient Build Technician 04/18/23 05/08/23 documented as of this encounter
--- OUTSIDE RECORDS SUMMARY | 2024-03-31 17:06 | XMS_ITS | Referral Summary ---
Author Organization [facility] Address [address] [place] [address] Care Team Providers Care Investigator Cash Shortage Name Role Phone Sridhar Britt MD Primary Care Provider Source Comments [facility],non-owned Affiliates and Associated Physician Practices is amultiple site organization consisting of ambulatory clinics and hospital sitesin [place], [place], [place]. This disclosure is being madepursuant to the Care Everywhere program and may not contain all information available regarding this patient. Last updated 17.[facility] Allergies Active Allergy Reactions Criticality Noted Date [...] at 53, RSR in V1/V2, ERWP, intervals [phone] 12/25 Event recorder: Chest pain , shortness of breath , lightheaded, correlated SR at 64-99, rare PVCs Social History Tobacco Use Types Packs/Day Years [...] 10/15/2020 6:20 PM CDT Plan of Treatment Not on file Care Teams Investigator Cash Shortage Relationship Specialty Start Date End Date Sridhar Britt MD [address] [place] [address] [address] [place] [address] PCP - General Internal Medicine 12/12/17
--- OUTSIDE RECORDS SUMMARY | 2024-03-31 17:06 | XMS_ITS | Data Portability ---
Author Organization [facility] [employer], Main Office Address [address] [place] [address] Assessment No assessment recorded. Plan of Treatment Reminders Order Date Submit Date Provider Last Modified By Organization Details Last Modified Time Details Appointments None recorded . Lab CBC w/ auto diff 024 01/26/[address] [facility], [address] [place], [address], 4 12:35:29 CMP, serum or plasma 024 01/26/[address] [facility], [address] [place], [address], 4 12:36:56 lipid panel, serum 024 01/26/[address] [facility], [address] [place], [address], 4 12:40:10 lipid panel, serum 023 02/04/[address] Out[facility] Lab, [address] [place], [address], 4 13:12:19 CMP, serum or plasma 023 02/04/[address] Out[facility] Lab, [address] [place], [address], 4 13:12:20 CRP, high sensitiv ity, serum or plasma 023 02/04/[address] Out[facility], [address] [place], [address], 13:12:20 Referral None recorded . Procedures None recorded . Surgeries None recorded . Imaging None recorded . Medication Orders None recorded . Patient TargetsNo targets recorded. Patient Instructions Encounter Date Encounter Id Patient Instructions Last Modified By Organization Details Last Modified Time 02/03/2023 [id number] Follow up cardia c arrest and seizure disorder. Had elevation of liver enzymes at the same time. Will check a CMP, lipid high sensitivity C reactive protein. Pending the results of the cardiac evaluation. May need neurological evaluation as well. Portions of the record may have been created with voice recognition software. Occasional wrong-word or s ound-a-like substitutions may have occurred due to the inherent limitations of voice recognition software. Read the chart carefully and recognize, using context, where substitutions have occurred. [email or web address] Not available 02/03/2023 11:28:35 05/26/2023 [id number] Seizure disorder , ventricular fibrillation. Plan is to continue on current Rx. Will get copies the most recent diagnostic studies performed at [place] as well as history Nina and Keith. New on current Rx in the interim. Follow-up in four months pending those results Get copies of any cardiac evaluation including echocardiogram as well as Holter monitors etc. from [facility] or more back where she had the cardiac catheterization performed. Next Appointment: 4 Months Approximate Date: 09/23/2023 Portions of the record may have been created with voice recognition software. Occasional wrong-word or s ound-a-like substitutions may have occurred due to the inherent limitations of voice recognition software. Read the chart carefully and recognize, using context, where substitutions have occurred. [email or web address] Not available 05/26/2023 12:21:09 01/26/2024 [id number] risk assessment* [email or web address] Not availabl e 01/26/2024 10:56:52 INFLUENZA VACCIN E Recommended today, but patient declined TD/TDAP Recommended today, patient declined Ordered Pa tient will get at local pharmacy/health department PNEUMONIA VACCINE Ordered Recommended today, patient declined Patient will get at local pharmacy/health department Recommen ded at age 65 SHINGLES Not indicated MAMMOGRAM: Last Mammogram DEXA SCAN Recommended today, but patient declined Ordered No screening indicated CERVICAL SCREENING/PELVIC EXAMINATION Recommended today, but patient declined Ordered No screening necessary patient is up to date COLORECTAL SCREENING: Last Colonoscopy No screening necessary patient is up to date DEPRESSION SCREENING Negative BMI Overweight Appropri ate NUTRITION PHYSICAL ACTIVITY Need more exercise/physical activity VISION Ordered Recommended today ALCOHOL USE No alcohol use Occasional/Soci al Use TOBACCO USE non smoker LUNG CANCER SCREENING Non Smoker-not indicated SEXUALLY ACTIVE HEPATITIS C SCREENING Not indicated GLUCOSE SCREENING LIPID SCREENING [email or web address] Not available 01/26/2024 10:45:28 Adult health examination risk assessment stable. Follow-up for nonischemic cardiomyopathy, seizure disorder and ventricular fibrillation. Apparently has had a Cologuard done within the last several years. Is due for a mammogram. Up-to-date on other immunizations. Was given a flu shot today. Overall doing well. Will check blood work consisting of CBC, CMP, lipid thyroid. Continue on current medications and follow-up in six months Additional Orders - Directives - Recommendations 1. mammogram 2. Try to get a copy of most recent echocardiogram done by her dyer and washer 3. Try to get a copy of the Cologuard test she had done by some other physician. Follow Up: 6 Months Approximate Date: 07/24/2024 Portions of the record may have been created with voice recognition software. Occasional wrong-word or s ound-a-like substitutions may have occurred due to the inherent limitations of voice recognition software. Read the chart carefully and recognize, using context, where substitutions have occurred. Created: Sridhar Britt M.D. 01.26.2024 09:56 AM [email or web address] Not available 01/26/2024 10:56:38 Reason for Referral None Reported. Results Created Date Observation Date Name Description Value Unit Range Abnormal Flag Note LastModifiedBy Organization Detail LastModifiedTime 01/20/20 23 01/19/2023 SARS- COV-2 RNA(C OVID1 9),RT -PCR sars-cov-2 RNA(covid19) ,RT-PCR NEGATI VE This test has been autho rized by the FDA under an Emerg ency Use Autho rizat ion (EUA) for use by autho rized labor atori es. Negat eliezer resul ts do not precl ude SARS- CoV-2 and shoul d not be used as the sole basis for treat ment or other patie nt manag ement decis ions. Test resul ts shoul d be corre lated with the clini jennifer histo ry, epide miolo gical data, and other data avail able to the clini niru evalu ating the patie nt. Kali herrera w the Fact Sheet s for healt h care provi ders and patie nts at the [facility] donny: https ://ww w.fda .gov/ media /1363 12/do wnloa d https ://ww w.fda .gov/ media /1363 13/do wnloa d Metho dolog y: Real- Time RT-PC R Not Available [facility] (Lab) [address] [place], [address], 01/19/2023 14:22:51 03/31/19 24 03/31/2023 COVID -19, INFLU TUNG A+B, PCR sars-cov-2 RNA(covid19) ,RT-PCR NEGATI VE This test has been autho rized by the FDA under an Emerg ency Use Autho rizat ion (EUA) for use by autho rized labor atori es. Negat eliezer resul ts do not precl ude SARS- CoV-2 and shoul d not be used as the sole basis for treat ment or other patie nt manag ement decis ions. Test resul ts shoul d be corre lated with the clini jennifer histo ry, epide miolo gical data, and other data avail able to the clini niru evalu ating the patie nt. Kali herrera w the Fact Sheet s for healt h care provi ders and patie nts at the [facility] donny: https ://ww w.fda .gov/ media /1363 12/do wnloa d https ://ww w.fda .gov/ media /1363 13/do wnloa d Metho dolog y: Real- Time RT-PC R Not Available [facility] (Lab) [address] [place], [address], 03/31/2023 14:12:38 03/31/19 24 03/31/2023 COVID -19, INFLU TUNG A+B, PCR influenza A RNA, RT-PCR POSITI VE abnormal Not Available [facility] (Lab) [address] [place], [address], 03/31/2023 14:12:38 03/31/19 24 03/31/2023 COVID -19, INFLU TUNG A+B, PCR influenza B RNA, RT-PCR NEGATI VE abnormal Not Available [facility] (Lab) [address] [place], [address], 03/31/2023 14:12:38 01/26/20 24 01/27/2024 LIPID PANEL , STAND DEVIKA cholesterol, total 210 mg/dL <200 high Not Available [address] [address] [place], [address], 01/27/2024 11:18:41 01/26/20 24 01/27/2024 LIPID PANEL , STAND DEVIKA HDL cholesterol 63 mg/dL > or = 50 normal Not Available [address] [address] [place], [address], 01/27/2024 11:18:41 01/26/20 24 01/27/2024 LIPID PANEL , STAND DEVIKA triglyceride s 59 mg/dL <150 normal Not Available [address] [address] [place], [address], 01/27/2024 11:18:41 01/26/20 24 01/27/2024 LIPID PANEL , STAND DEVIKA LDL-choleste rol 132 mg/dL _(jennifer c) high Refer ence range : <100 Amarjit able range <100 mg/dL for prima ry preve ntion ; <70 mg/dL for patie nts with CHD or diabe tic patie nts with > or = 2 CHD risk facto rs. LDL-C is now calcu lated using the Tanika n-Hop kins sualou tsering n, which is a valid ated novel metho d provi ding vicky r accur acy than the Fried marino equat ion in the estim ation of LDL-C . Tanika n SS et al. JOSH. 2013; 310(1 7): 2061- 2068 (http ://ed ucati on.Nelda perkins [employer]. com/f aq/FA Q164) Not Available [address], [address], 01/27/2024 11:18:41 01/26/20 24 01/27/2024 LIPID PANEL , STAND DEVIKA chol/HDLC ratio 3.3 (calc ) <5.0 normal Not Available [address], [address], 01/27/2024 11:18:41 01/26/20 24 01/27/2024 LIPID PANEL , STAND DEVIKA non HDL cholesterol 147 mg/dL _(jennifer c) <130 high For patie nts with diabe donny plus 1 major ASCVD risk facto r, treat ing to a non-H DL-C goal of <100 mg/dL (LDL- C of <70 mg/dL ) is consi dered a thera peuti c optio n. Not Available [address], [address], 01/27/2024 11:18:41 01/26/20 24 01/27/2024 COMPR EHENS ELIEZER METAB OLIC PANEL glucose 82 mg/dL 65-99 normal Fasti ng refer ence inter alexandra Not Available [address], [address], 01/27/2024 11:18:43 01/26/20 24 01/27/2024 COMPR EHENS ELIEZER METAB OLIC PANEL urea nitrogen (BUN) 14 mg/dL 7-25 normal Not Available [address], [address], 01/27/2024 11:18:43 01/26/20 24 01/27/2024 COMPR EHENS ELIEZER METAB OLIC PANEL creatinine 1.33 mg/dL 0.50-0 .99 high Not Available [address], [address], 01/27/2024 11:18:43 01/26/20 24 01/27/2024 COMPR EHENS ELIEZER METAB OLIC PANEL eGFR 49 mL/mi n/1.7 3m2 > or = 60 low Not Available [address], [address], 01/27/2024 11:18:43 01/26/20 24 01/27/2024 COMPR EHENS ELIEZER METAB OLIC PANEL BUN/creatini ne ratio 11 (calc ) 6-22 normal Not Available [address], [address], 01/27/2024 11:18:43 01/26/20 24 01/27/2024 COMPR EHENS ELIEZER METAB OLIC PANEL sodium 142 mmol/ L 135-14 6 normal Not Available [address], [address], 01/27/2024 11:18:43 01/26/20 24 01/27/2024 COMPR EHENS ELIEZER METAB OLIC PANEL potassium 5.1 mmol/ L 3.5-5. 3 normal Not Available [address], [address], 01/27/2024 11:18:43 01/26/20 24 01/27/2024 COMPR EHENS ELIEZER METAB OLIC PANEL chloride 103 mmol/ L 98-110 normal Not Available [address], [address], 01/27/2024 11:18:43 01/26/20 24 01/27/2024 COMPR EHENS ELIEZER METAB OLIC PANEL carbon dioxide 31 mmol/ L 20-32 normal Not Available [address], [address], 01/27/2024 11:18:43 01/26/20 24 01/27/2024 COMPR EHENS ELIEZER METAB OLIC PANEL calcium 10.3 mg/dL 8.6-10 .2 high Not Available [address], [address], 01/27/2024 11:18:43 01/26/20 24 01/27/2024 COMPR EHENS ELIEZER METAB OLIC PANEL protein, total 7.3 g/dL 6.1-8. 1 normal Not Available [address], [address], 01/27/2024 11:18:43 01/26/20 24 01/27/2024 COMPR EHENS LEIEZER METAB OLIC PANEL albumin 4.8 g/dL 3.6-5. 1 normal Not Available [address], [address], 01/27/2024 11:18:43 01/26/20 24 01/27/2024 COMPR EHENS ELIEZER METAB OLIC PANEL globulin 2.5 g/dL_ (calc ) 1.9-3. 7 normal Not Available [address], [address], 01/27/2024 11:18:43 01/26/20 24 01/27/2024 COMPR EHENS ELIEZER METAB OLIC PANEL albumin/glob ulin ratio 1.9 (calc ) 1.0-2. 5 normal Not Available [address], [address], 01/27/2024 11:18:43 01/26/20 24 01/27/2024 COMPR EHENS ELIEZER METAB OLIC PANEL bilirubin, total 0.5 mg/dL 0.2-1. 2 normal Not Available [address], [address], 01/27/2024 11:18:43 01/26/20 24 01/27/2024 COMPR EHENS ELIEZER METAB OLIC PANEL alkaline phosphatase 142 U/L 31-125 high Not Available [address] [address] [place], [address], 01/27/2024 11:18:43 01/26/20 24 01/27/2024 COMPR EHENS ELIEZER METAB OLIC PANEL AST 16 U/L 10-35 normal Not Available [address], [address], 01/27/2024 11:18:43 01/26/20 24 01/27/2024 COMPR EHENS ELIEZER METAB OLIC PANEL ALT 11 U/L 6-29 normal Not Available [address], [address], 01/27/2024 11:18:43 01/26/20 24 01/27/2024 CBC (INCL UDES DIFF/ PLT) white blood cell count 6.4 thous and/u L 3.8-10 .8 normal Not Available [address], [address], 01/27/2024 11:18:44 01/26/20 24 01/27/2024 CBC (INCL UDES DIFF/ PLT) red blood cell count 4.37 sunny on/uL 3.80-5 .10 normal Not Available [address], [address], 01/27/2024 11:18:44 01/26/20 24 01/27/2024 CBC (INCL UDES DIFF/ PLT) hemoglobin 12.4 g/dL 11.7-1 5.5 normal Not Available [address], [address], 01/27/2024 11:18:44 01/26/20 24 01/27/2024 CBC (INCL UDES DIFF/ PLT) hematocrit 39.1 % 35.0-4 5.0 normal Not Available [address] [place], [address], 01/27/2024 11:18:44 01/26/20 24 01/27/2024 CBC (INCL UDES DIFF/ PLT) MCV 89.5 fL 80.0-1 00.0 normal Not Available [facility] [address], [address], 01/27/2024 11:18:44 01/26/20 24 01/27/2024 CBC (INCL UDES DIFF/ PLT) MCH 28.4 pg 27.0-3 3.0 normal Not Available [facility] [address], [address], 01/27/2024 11:18:44 01/26/20 24 01/27/2024 CBC (INCL UDES DIFF/ PLT) MCHC 31.7 g/dL 32.0-3 6.0 low For adult s, a sligh t decre ase in the calcu lated MCHC value (in the range of 30 to 32 g/dL) is most likel y not clini timo signi fican t; isaías er, it shoul d be inter prete d with cauti on in [facility] with other red cell ella eters and the patie nt's clini jennifer condi tion. Not Available [address], [address], 01/27/2024 11:18:44 01/26/20 24 01/27/2024 CBC (INCL UDES DIFF/ PLT) RDW 14.3 % 11.0-1 5.0 normal Not Available [facility] [address], [address], 01/27/2024 11:18:44 01/26/20 24 01/27/2024 CBC (INCL UDES DIFF/ PLT) platelet count 550 thous and/u L 140-40 0 high Not Available [facility] [address], [address], 01/27/2024 11:18:44 01/26/20 24 01/27/2024 CBC (INCL UDES DIFF/ PLT) MPV 10.5 fL 7.5-12 .5 normal Not Available [address], [address], 01/27/2024 11:18:44 01/26/20 24 01/27/2024 CBC (INCL UDES DIFF/ PLT) absolute neutrophils 3629 cells /uL 1500-7 800 normal Not Available [address], [address], 01/27/2024 11:18:44 01/26/20 24 01/27/2024 CBC (INCL UDES DIFF/ PLT) absolute lymphocytes 2253 cells /uL 850-39 00 normal Not Available [address], [address], 01/27/2024 11:18:44 01/26/20 24 01/27/2024 CBC (INCL UDES DIFF/ PLT) absolute monocytes 429 cells /uL 200-95 0 normal Not Available [address], [address], 01/27/2024 11:18:44 01/26/20 24 01/27/2024 CBC (INCL UDES DIFF/ PLT) absolute eosinophils 0 cells /uL 15-500 low Not Available [address], [address], 01/27/2024 11:18:44 01/26/20 24 01/27/2024 CBC (INCL UDES DIFF/ PLT) absolute basophils 90 cells /uL 0-200 normal Not Available [address], [address], 01/27/2024 11:18:44 01/26/20 24 01/27/2024 CBC (INCL UDES DIFF/ PLT) neutrophils 56.7 % normal Not Available [address], [address], 01/27/2024 11:18:44 01/26/20 24 01/27/2024 CBC (INCL UDES DIFF/ PLT) lymphocytes 35.2 % normal Not Available [address], [address], 01/27/2024 11:18:44 01/26/20 24 01/27/2024 CBC (INCL UDES DIFF/ PLT) monocytes 6.7 % normal Not Available [address] [place], [address], 01/27/2024 11:18:44 01/26/20 24 01/27/2024 CBC (INCL UDES DIFF/ PLT) eosinophils 0.0 % normal Not Available [address], [address], 01/27/2024 11:18:44 01/26/20 24 01/27/2024 CBC (INCL UDES DIFF/ PLT) basophils 1.4 % normal Not Available [address], [address], 01/27/2024 11:18:44 02/22/19 24 02/22/2023 maritza r monit or No observ ation record ed. [email or web address] [facility] [address], [place], [address], 02/22/2023 15:14:16 06/20/19 24 06/08/2023 elect gomezar diogr am No observ ation record ed. Not Available 2023 11:52:16 06/20/19 24 04/06/2023 US, echoc ardio gram No observ ation record ed. [email or web address] Not Available 2023 11:31:36 06/20/19 24 US, echoc ardio gram No observ ation record ed. [email or web address] Not Available 2023 11:31:36 Result Notes None recorded. Problems Name Problem SNOMED Code Status Onset Date Resolution Date Notes Provider Name and Address Organization Details Recorded Time Foot swelling 922856711 Active Not Available [facility] 3 06:56:28 Chronic cough 15440889 Active 2018 Not Available [facility] 3 06:56:28 Cough 38420638 Active 2022 SEAN Hamlin, [place] [facility] 3 11:40:57 Pharyngitis 632346243 Active 2022 Sridhar Britt MD [address], [address], [place], [address] , [place] [facility] 3 14:53:44 Seizure disorder 972875206 Active 2022 Sridhar Britt MD [address], [address], [place], [address] , [place] [facility] 3 11:26:45 Fever 906157555 Active 2023 Sandi peters, [place] [facility] 4 10:25:46 Influenza 4586885 Active 2023 Sridhar Britt MD [address], [address], [place], [address] , [place] [facility] 4 14:56:55 Malaise and fatigue 804524569 Active 2023 SEAN Hamlin, [place] [facility] 4 10:48:27 Ventricular fibrillation 66451410 Active 2023 Sridhar Britt MD [address], [address], [place], [address] , [place] [facility] 4 12:14:48 Cardiomyopath y 70798723 Active 2023 Sridhar Britt MD [address], [address], [place], [address] , [facility] 4 10:51:30 Problem Notes None recorded. Procedures Surgical History None recorded. Imaging Results Imaging Date Name Status LastModified by Organization Details LastModified Time 02/22/2023 holter monitor completed [email or web address] [facility] [address], [place], [address], 02/22/2023 15:14:16 06/08/2023 electrocardiogram completed [email or web address] Informa tion not available 06/20/2023 11:52:16 04/06/2023 US, echocardiogram completed [email or web address] Inform ation not available 06/22/2023 11:31:36 06/20/2023 US, echocardiogram completed [email or web address] Inform ation not available 06/22/2023 11:31:36 Procedure Notes None recorded. Medical Equipment None Reported. Allergies Allergen ID Allergen Name Allergen Category Reaction Reaction Severity Criticality Documentation Date Start Date Code Code System Note Provider Name and Address Organization Details Recorded Time 98885 Product containin g penicilli n (product) medicatio n rash Not available Not available 04/07/2022 86661 8001 SNOMED Not Available [facility] 07:00:13 Medications Name Sig Start Date Stop Date Status Note LastModified by Organization Details LastModified Time Singulair 10 mg tablet Take 1 tablet every day by oral route. 03/28 completed Not Available Not Available Not Available lamotrigine 150 mg tablet 05/25 completed Not Available Not Available Not Available silver sulfadiazin e 1 % topical cream active Not Available Not Available Not Available clindamycin HCl 300 mg capsule Take 1 capsule every 6 hours by oral route. 03/28 completed Not Available Not Available Not Available azithromyci n 250 mg tablet TAKE 2 TABLETS (500 MG) BY ORAL ROUTE ONCE DAILY FOR 1 DAY THEN 1 TABLET (250 MG) BY ORAL ROUTE ONCE DAILY FOR 4 DAYS 05/25 completed Not Available Not Available Not Available spironolact one 25 mg tablet active Not Available Not Available Not Available lamotrigine 25 mg tablet 01/25 completed Not Available Not Available Not Available amiodarone 400 mg tablet 05/25 completed Not Available Not Available Not Available oseltamivir 75 mg capsule TAKE 1 CAPSULE BY MOUTH TWICE DAILY FOR 5 DAYS 05/25 completed Not Available Not Available Not Available metoprolol succinate ER 25 mg tablet,exte nded release 24 hr 05/25 completed Not Available Not Available Not Available methylpredn isolone 4 mg tablets in a dose pack Take by oral route as per package insert 03/14 completed Not Available Not Available Not Available lamotrigine 100 mg tablet TAKE 1/2 TABLET BY MOUTH IN THE MORNING AND 1 AND 1/2 TABLETS IN THE EVENING WITH MEALS DIRECTED active Not Available Not Available No t Available Briviact 100 mg tablet half tablet daily 01/25 completed Not Available Not Available Not Available Briviact 50 mg tablet TAKE 1 TABLET BY MOUTH TWICE DAILY active Not Available Not Available No t Available Vitals Date Recorded Body height Body mass index (BMI) Body weight Body temperature Heart rate Respiratory rate Oxygen saturation Oxygen saturation in Arterial blood by Pulse oximetry Systolic blood pressure Diastolic blood pressure Provider Name and Address Organization Details Last Updated DateTime 3 158.75 cm 28.8 kg/m2 03132.7 8 g 97.3 [degF] 89 /min 16 /min 98 % 98 % 108 mm[Hg] 66 mm[Hg] Chen Castillo RN [facility] [employer] [facility] 3 11:03:29 Date Recorded Body height Body mass index (BMI) Body weight Heart rate Body temperature Oxygen saturation Oxygen saturation in Arterial blood by Pulse oximetry Systolic blood pressure Diastolic blood pressure Provider Name and Address Organization Details Last Updated DateTime 4 158.75 cm 25.9 kg/m2 40724.3 g 79 /min 97 [degF] 99 % 99 % 112 mm[Hg] 64 mm[Hg] Sandi Chavez [facility] [employer] [facility] 4 12:05:53 Date Recorded Body height Body mass index (BMI) Body weight Heart rate Body temperature Oxygen saturation Oxygen saturation in Arterial blood by Pulse oximetry Systolic blood pressure Diastolic blood pressure Provider Name and Address Organization Details Last Updated DateTime 4 158.75 cm 24.3 kg/m2 32245.9 7 g 79 /min 97 [degF] 97 % 97 % 110 mm[Hg] 62 mm[Hg] MYLENE Zarate [facility] [employer] [facility] 4 10:34:16 Social History None recorded. Functional Status None recorded. Mental Status None recorded. Family History Nothing Reported Notes:Mother 58 good health Father 64 with BDM One brother living and in good health Medical History Condition Response NERVE DISEASE N BLINDNESS N RHEUMATIC FEVER N KIDNEY STONES N BLADDER PROBLEMS N MRSA N OTHER # 1 N POLIO N LUNG DISEASE/DISORDER N HISTORY OF DRUG ABUSE N RADIATION / CHEMOTHERAPY N COPD N Other # 2 N BLOOD DISEASES N EAR OR HEARING PROBLEMS N MUMPS N SHINGLES N DEPRESSION (INCLUDING POST ) N BOWEL PROBLEMS N FAILED BACK SYNDROME N STROKE/TIA N ULCERS N BENIGN PROSTATIC HYPERPLASIA N MEASLES N HYPOTENSION N MYOCARDIAL INFARCTION N OBESITY N GERD/NAUSEA N ANEURYSM N URINARY/BLADDER/KIDNEY PROBLEMS N CORONARY ARTERY DISEASE (CAD) N Do you have Advance directive? N ADDICTION CONCERNS N Impotence N ENDOMETRIOSIS N USE OF BLOOD THINNERS N SKIN PROBLEMS N GASTROINTESTINAL DISORDER N PERIPHERAL VASCULAR DISEASE N MUSCLE,JOINT OR BONE PROBLEMS N GASTROINTESTINAL BLEEDING N BLOOD CLOTS N ASTHMA N CATARACTS N Abdominal Pain N ERECTILE DYSFUNCTION N ARTERIAL INSUFFICIENCY N VARICOSITIES N GI PROBLEMS N Low Testosterone N INFERTILITY N AIDS/HIV N CHEMOTHERAPY / RADIATION N LIVER DISEASE N MALE HYPOGONADISM N HYPERTENSION N Deficiency N TOURETTE'S N ANXIETY DISORDER N BLOOD TRANSFUSION N ANEMIA/BLOOD DISORDER N CHRONIC EAR INFECTIONS N TUBERCULOSIS N GLAUCOMA N FOOT PROBLEM N DIVERTICULITIS N SLEEP APNEA N CHICKENPOX N ALLERGIES/HAYFEVER N BACK INJECTIONS N INFECTIOUS DISEASE N PROSTATE N HEART ARRHYTHMIA N ESRD N INSOMNIA N HIGH CHOLESTEROL / HYPERLIPIDEMIA N EYE PROBLEMS N HYPERTHYROIDISM N PVD N EDEMA N CHRONIC PAIN SYNDROME N HYPOTHYROIDISM N CAROTID BLOCKAGE N CONSTIPATION N BACK / NECK PROBLEMS N HAVE YOU BEEN HOSPITALIZED OR SEEN IN [facility] IN THE PAST YEAR ? N ATHEROSCLEROSIS N BREAST PROBLEMS N DIALYSIS N POLYCYSTIC OVARIES N ECZEMA N OSTEOPOROSIS N ARTHRITIS N NO SIGNIFICANT PAST MEDICAL HISTORY N APPENDICITIS N DIABETES, TYPE N BAD TEETH N VON WILLIBRAND'S DISEASE N ENT N HEARTBURN / REFLUX N GI N AUTISM SPECTRUM DISORDER (ASD) N POST LAMINECTOMY SYNDROME N HEPATITIS / LIVER DISEASE N GOUT N SLEEP DISORDER N ALZHEIMER'S DISEASE N Brain Problems N DEMENTIA N HERPES N SEIZURES/EPILEPSY Y HEADACHES/MIGRAINES N VASCULAR DISEASE N PACEMAKER N DIZZINESS N HEART DISEASE/HEART PROBLEMS N KIDNEY DISEASE N MULTIPLE SCLEROSIS N NEUROPSYCHOLOGICAL N CANCER: SPECIFY N CARDIAC ARRHYTHMIA N ATRIAL FIBRILLATION N Gall Stones N PULMONARY EMBOLISM N AUTOIMMUNE DISEASE N Gynecological HistoryNo gynecological history recorded. Obstetrics History GPAL:G 0 P 0 0 0 0 Immunizations Vaccine Type Date Status Note Provider Nam e and Address Organization Details Recorded Time Influenza, split virus, trivalent, PF 01/26/2024 completed MYLENE Zarate, [place] [facility] 01/26/2024 11:45:16 Past Encounters Encounter ID Performer Location Encounter Start Date Encounter Closed Date Diagnosis/Indication Diagnosis SNOMED-CT Code Diagnosis ICD10 Code Diagnosis Note [id number] Sridhar Britt MD [facility] Internal Med [facility] [address] [address] 02/03/2023 10:53:44 02/03/2023 11:36:29 History of cardiac arrest 121181219 Z86.74 Seizure disorder 6868219 02 G40.588 [id number] Sridhar Britt MD [facility] Internal Med [facility] [address] [address] 05/26/2023 11:58:32 05/26/2023 12:26:17 Seizure disorder 981381426 G40.909 Ventricula r fibrillation 13280012 I49.01 [id number] Sridhar Britt MD [facility] Primary Care [address] [place] [address] 01/26/2024 10:27:26 01/26/2024 14:10:33 Adult health examination 451086122 Z00.00 Depression screening 171 925728 Z13.31 Cardiomyopathy 90155833 I42.9 Seizure disorder 2245326 02 G40.909 Ventricula r fibrillation 06775864 I49.01 Health Concerns Section Related Observation LastModified by Organization Detai ls LastModified Time None Recorded Concern Status LastModified by Organization Details LastModified Time None Recorded Advance Directives Directive None Recorded Payers Encounter Date Sequence Insurance Name Policy Number Policy Gandhi Covered Member ID Gandhi Member ID Guarantor Name 02/03/2023 1 [employer]) [id number] Miguel Angel Abrams [id number] Sejal Abrams 05/26/2023 1 [employer]) [id number] Miguel Angel Abrams [id number] Sejal Abrams 01/26/2024 1 [employer] ([employer]) [id number] Miguel Angel Abrams [id number] Sejal Abrams Notes Date Note Type Note Provider Name and Address Organization Details Recorded Time 023 text/ht ml Patient Name: Sejal Ackerman Of Service: January ( 02.03.2023 ): 1975 Age: 47 Vital Signs:Blood Pressure: Sitting Rt. Arm 108/66Pulse: Sitting 89 /min and RegularRespiratory Rate: 16Height 62.5 in or 1.6 mWeight 160 lb or 72.6 kgBMI 28.8Temperature: 97.3 F or 36.3 C Chief Complaint: Addressed in HPI Problems or conditions discussed in the HPI were the only ones reviewed during the encounter.Only social and family history addressed in the HPI were reviewed during this encounter. Attendant(s): NoneConstitutional and Systemic Symptoms:none Medication Reconciliation: from medication list. Rafdfuminfp15/12/2023: Ultrasound pelvis demonstrated thickening of the endometrial mucosa. Needs further evaluation with a endometrial biopsy. History of Present Illness #1. History of recent episode of a seizure activity with associated cardiac asystole. Had to be resuscitated. Currently being followed by Cardiology does have a monitor in place currently. Has been placed on metoprolol 12.5 mg twice daily. Is currently asymptomatic. On was seen in the emergency room at that time had significant elevation of the liver enzymes likely secondary to cardiac arrest. Will check blood work including liver enzymes as well as lipid profile.: #2. Seizure Disorder: Type: Complex Partial Frequency: One several weeks ago associated with apparently cardiac arrest. Current Medications: Lamictal No complications related to medications.Medication List Reviewed and Reconciled 02/03/2023Metoprolol 25 MG TABLET 1/2 Tab Twice DailyLamictal 100 MG BidADRs List Reviewed 02/03/2023enicillin RashVaccination and Dbmgyspuffwj5407-20 Pmkgihbno7646-48 Hep BSurgical HistoryAppendectomyPreventative Testing Confirmed by Our Hqzulma5812/16/2022 ALBUMIN 3.6 G/DL N009/10/2022 MAMMOGRAM & ULTRASOUND 09/11/2023Social HistoryDoes not smokeDrinks sociallyWorks in medical recordsFamily HistoryMother 67 good healthFather 69 BDM, CADOne brother living and in good healthMenarche 12 Menopause A0 Sridhar Britt MD [address] [facility], [place], [address], [facility] [employer] 02/03/2023 11:28:58 024 text/jovany ml Patient Name: Sejal Ackerman Of Service: May ( 05.26.2023 ): 1975 Age: 47 There has been approximately a 16 lb weight loss since 02/03/2023. This represents approximately a 10.0% change in weight. Weight change attributable to lifestyle changes. Vital Signs:Blood Pressure: Sitting Rt. Arm 112/64Pulse: Sitting 79 /min and RegularRespiratory Rate: 12Height 62.5 in or 1.6 mWeight 144 lb or 65.3 kgBMI 25.9Temperature: 97 F or 36.1 CPulse Oximetry: 99 % at rest on no oxygen Chief Complaint: Addressed in HPI Problems or conditions discussed in the HPI were the only ones reviewed during the encounter.Only social and family history addressed in the HPI were reviewed during this encounter. Attendant(s): NoneConstitutional and Systemic Symptoms:none Medication Reconciliation: from medication list. Aqdfqkyhiug83/12/2023: Ultrasound pelvis demonstrated thickening of the endometrial mucosa. Needs further evaluation with a endometrial biopsy. 01-24-2023: Holter monitor are rare supraventricular ectopics. Average heart rate was 64 beats per minute maximum 147. Minimum 42 beats per minute History of Present Illness #1. Seizure Disorder: Type: generalized myoclonic Frequency: 1-2 per month Current Medications: Briviact and Lamictal No complications related to medications. #2. Follow-up for recent hospitalizations and seizure disorder associated with cardiac arrest secondary to ventricular fibrillation. More likely to being produced by severe electrolyte and metabolic disturbances related to the seizure activity. Currently has an AICD inserted. It is uncertain whether not what blood tests and whether type of diagnostic tests have been done from the cardiac standpoint. Apparently has had a cardiac catheterization which allegedly was normal. Do not see where we have any copies of these reports. 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 [address], [place], [address], [facility] [employer] 05/26/2023 12:21:26 024 text/ht ml Patient Name: Sejal AbramsDate Of Service: January ( 01.26.2024 ): 1975 Age: 48 There has been approximately a 9 lb weight loss since 05/26/2023. This represents approximately a 6.3% change in weight. Weight change attributable to lifestyle changes. Vital Signs:Blood Pressure: Sitting Rt. Arm 110/62Pulse: Sitting 79 /min and RegularRespiratory Rate: 16Height 62.5 in or 1.6 mWeight 135 lb or 61.2 kgBMI 24.3Temperature: 97 F or 36.1 CPulse Oximetry: 97 % at rest on no oxygen Chief Complaint: Addressed in HPI Problems or conditions discussed in the HPI were the only ones reviewed during the encounter.Only social and family history addressed in the HPI were reviewed during this encounter. Attendant(s): NoneConstitutional and Systemic Symptoms:none Medication Reconciliation: from medication list. Cyzmnutcbda11/12/2023: Ultrasound pelvis demonstrated thickening of the endometrial mucosa. Needs further evaluation with a endometrial biopsy. 01-24-2023: Holter monitor are rare supraventricular ectopics. Average heart rate was 64 beats per minute maximum 147. Minimum 42 beats per minute History of Present Illness In for a well patient check up. Last well patient evaluation was approximately one year. No interval complaints of any major medical problems. No hx of any chest pain, shortness of breath, nausea, vomiting, diarrhea or constitutional symptoms. Also being followed for other chronically monitored problems.Has Had A Mammogram dueHas Had A Pap Smear dueImmunizations Up To Date or refuses to takeNo Significant Change In Family HxColonoscopy or Cologuard: not dueFall Risk normalDepression Score: 0PHQ-9 Score [IndicatedHearing normalVision normalReviewed Smoking and Drug HistoryReviewed Immunization HistoryInstructed on importance of weight on diabetes, heart and other diseases aggravated by obesity. #1. Cardiomyopathy: History of Nonischemic cardiomyopathy cardiomyopathy. No interval complaints of any orthopnea, PND or chest pain. Currently functioning at a II level. ADL: Bathing, Dressing, Eating, Functional Mobility, Personal Hygiene and Toilet Hygiene #2. generalized myoclonic: #3. Seizure Disorder: Type: None since last visit Frequency: Lamictal Current Medications: Briviact and Lamictal No complications related to medications. 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 records Family HistoryMother 67 good healthFather 69 BDM, CADOne brother living and in good healthMenarche 12 Menopause A0 Active Medication ListLamictal 100 MG BidBriviact 50 MG TABLET, FILM COATED BidSpironolactone 25 MG TABLET One Daily Adverse Drug Reactions ReviewedPenicillin Rash Vaccination and Immunization( ) 2007-05 HEP B(X) 2018-03 INFLUENZA Surgical Zgbfnrs9109-28 DUKT7030-95 Appendectomy Preventative Testing( ) 12/16/2022 Albumin 3.6 G/DL N(X) 09/10/2022 Mammogram & Ultrasound 09/11/2023 Social HistoryDoes not smokeDrinks sociallyWorks in medical records Family HistoryMother 67 good healthFather 69 BDM, CADOne brother living and in good healthMenarche 12 Menopause A0 Sridhar Britt MD [address] [facility] [facility], [facility] [address], [place], [address], [facility] [employer] 01/26/2024 10:56:56 OBGyn Episode No OBEpisode recorded.
--- OUTSIDE RECORDS SUMMARY | 2024-03-31 17:06 | XMS_ITS | Patient Health Summary ---
Author Organization [facility] Address [address] [place] [address] Care Team Providers Care Fixed Capital Clerk Name Role Phone Sridhar Britt MD Primary Care Provider Note from [facility],non-owned Affiliates and Associated Physician Practices is amultiple site organization consisting of ambulatory clinics and hospital sitesin [place], [place], [place] and [place]. This disclosure is being madepursuant to the Care Everywhere program and may not contain all information available regarding this patient. Last updated 17.[facility] Allergies * Penicillins(Urticaria) -Medium Criticality Medications * Be aware that medications may not be up to date on this document. Alwaysverify current medications with the patient. * lamoTRIgine (LAMICTAL) 100 MG tablet Take 100 mg by mouth 2 times daily Active Problems Problem Noted Date Diagnosed Date Atypical chest pain 12/13/2017 Lightheadedness 12/12/2017 Social History Tobacco Use Types Packs/Day Years [...] Mass Index 23.91 10/15/2020 6:20 PM CDT Procedures * DERMATOPATHOLOGY(Performed 10/06/2021) * STREP A SCREEN - POINT OF CARE (AMB) STL(Performed 10/15/2020) Performed for Sore throat * CARDIAC EVENT MONITOR(Performed 01/18/2018) Performed for Lightheadedness, Atypical chest pain * EKG 12-LEAD(Performed 12/13/2017) Performed for Lightheadedness, Atypical chest pain * STRESS TEST WALKING(Performed 12/13/2017) Performed for Lightheadedness, Atypical chest pain Results * DERMATOPATHOLOGY (10/06/2021 12:00 AM CDT) Case Report Dermatopathology Report Case: [id number] Authorizing Provider: William Mitchell MD Collected: 10/06/2021 12:00 AM Ordering Location: [facility] DermPath Lab Received: 10/06/2021 04:37 PM Pathologist: Shawna Seo MD Specimen: Skin, mid back 2 3:57 PM CDT DERMATOPATHOLOGY LABORATORY Final Diagnosis Specimen A. SKIN, mid back: INTRADERMAL MELANOCYTIC NEVUS (D22.5) 2 3:57 PM CDT DERMATOPATHOLOGY LABORATORY Clinical History Irritated Nevus 2 3:57 PM CDT DERMATOPATHOLOGY LABORATORY Gross Description Specimen A: Received is one formalin filled container labeled with the patients name and designated mid back. The specimen consists of a shave removal measuring [id number]. Jar 0. 2 3:57 PM CDT DERMATOPATHOLOGY LABORATORY Microscopic Description Specimen A. SKIN, mid back: There are nests of cytologically bland melanocytes within the dermis that mature with depth. 2 3:57 PM CDT DERMATOPATHOLOGY LABORATORY Disclaimer An external and internal positive and negative controls are appropriate for the histochemical, immunohistochemical and immunofluorescence stain(s) in this case (if any), except where stated explicitly. The performance characteristics of the stain(s) cited in this report were developed and its performance characteristic determined by the Dermatopathology Laboratory at [facility], directed by Dr. Andrew Seo. These tests need not be, and therefore are not, approved by the [place] Food and Drug Administration. The tests are used for clinical purposes. Billing Codes Specimen Charges Stain Charges 27126 1 2 3:57 PM CDT DERMATOPATHOLOGY LABORATORY Embedded Images 2 3:57 PM CDT DERMATOPATHOLOGY LABORATORY Pathology/Cytolog y TISSUE SPECIMEN FROM SKIN / Unknown 10/06/2021 10/06/2021 4:37 PM CDT William Mitchell MD LAB - PATHOLOGY/CYTO LOGY ORDERABLES DERMATOPATHOLOGY LABORATORY [facility] Department of Dermatology [address], [address] [phone] * STREP A SCREEN (10/15/2020 6:35 PM CDT) Strep A Rapid POCT Negative Negative [facility] Strep A Internal Control Present [facility] Lot # [id number] [facility] Expiration Date 06/06/21 [facility] Throat ENTIRE THROAT (SURFACE REGION OF NECK) / Unknown 10/15/2020 6:35 PM CDT Shanon Falcon APRN-[facility] LAB - POINT OF CA RE ORDERABLES [facility] [address] [phone] * CARDIAC EVENT MONITOR (01/18/2018 9:38 AM HOOK AND EYE ATTACHER) Narrative Tere Harkins RDMS - 01/18/2018 9:38 AM HOOK AND EYE ATTACHER Tere Harkins RDMS 01/18/2018 9:38 AM See scan Reinier Dhillon MD CARDIAC SERVICES ORD ERABLES * EKG 12-LEAD (12/13/2017 3:20 PM HOOK AND EYE ATTACHER) Narrative Tere Harkins RDMS - 12/13/2017 3:20 PM HOOK AND EYE ATTACHER Tere Harkins RDMS 12/13/2017 3:20 PM See scan Reinier Dhillon MD ECG ORDERABLES * STRESS TEST WALKING (12/13/2017 3:19 PM HOOK AND EYE ATTACHER) Narrative Tere Harkins RDMS - 12/13/2017 3:19 PM HOOK AND EYE ATTACHER Tere Harkins RDMS 12/13/2017 3:19 PM See scan Reinier Dhillon MD CARDIAC SERVICES ORD ERABLES Care Teams Fixed Capital Clerk Relationship Specialty Start Date End Date Sridhar Britt MD [address] [place] [address] [address] [place] [address] PCP - General Internal Medicine 12/12/17
--- OUTSIDE RECORDS SUMMARY | 2024-03-31 17:06 | XMS_ITS | Clinical Summary ---
Author Organization [address] Address [address] [place] [address] Care Team Providers Care Manufacturer Name Role Phone Unavailable Primary Care Provider Unavailabl e Encounters Date Type Department Care Team Description 03/31/2024 Mobile Encounter [facility] Neurology [address] [place] [phone] Maribell Barr MD from Last 3 Months Social History Tobacco Use Types Packs/Day Years Used Date Smoking Tobacco: Never Assessed Comments Unknown Sex and Gender Information Value Date Recorded Sex Assigned at Female 01/27/2024 8:02 PM CABLEWAY OPERATOR Legal Sex Female 2:32 PM CABLEWAY OPERATOR Gender Identity Female 01/27/2024 8:02 PM CABLEWAY OPERATOR Sexual Orientation Straight 01/27/2024 8: 02 PM CABLEWAY OPERATOR Plan of Treatment Upcoming Encounters Date Type Department Care Team (Late st Contact Info) Description 04/02/2024 10:00 AM CABLEWAY OPERATOR Office Visit [facility] [address] [facility] [address] [place] [address] [place] [id number] [address] Health Maintenance Due Date Last Done Comments DTAP/TDAP/TD VACCINES (1 - Tdap) 10/19/1994 HEPATITIS B VACCINES (1 of 3 - 19+ 3-dose series) 10/08 CERVICAL CANCER SCREENING 10/19/2005 BREAST CANCER SCREENING 2015 COLORECTAL SCREENING 10/19/2020 Colorectal Cancer Screening 10/19/2020 FIT-DNA Q 3 years 10/19/2020 FIT/FOBT Q 1 year 10/19/2020 Flex Sig/CT Colonography Q 5 years 10/19/2020 INFLUENZA VACCINE (#1) 2023
--- OUTSIDE RECORDS SUMMARY | 2024-03-31 17:06 | XMS_ITS ---
Author Organization [facility] Address [address] [place] [address] Care Team Providers Care Barrel Rifler Hook Name Role Phone Sridhar Britt MD Primary Care Provider Dr. Jose Armstrong Unavailable [phone] Allergies Allergen (clinical drug ingredient) Drug/Non Drug [...] tab(s) orally once a day Not-Taking Briviact 100 MG 1/2 orally 2 times a day 03/10/2023 Active lamoTRIgine 100 MG 0.5 tab in AM, 1.5 t ab in PM orally as directed for 30 days Active LaMICtal 25 MG 5 tab(s) orally 2 ti mes a day Active Vital Signs Blood pressure systolic 109 mm Hg 08/18/19 24 Blood pressure diastolic 75 mm Hg 024 Height 62 in 08/18/2023 Weight 146.2 lbs 08/18/2023 BMI 26.74 kg/m2 08/18/2023 Oximetry 100 % 08/18/2023 Encounters Encounter Location Date Provider Diagnosis [facility] [address] [place] [address] 08/18/2023 Jose Forman Epilepsy, unspecified, intractable, without status epilepticus G40.919 and Encounter for therapeutic drug level monitoring Z51.81 Assessments Encounter Date Diagnosis (ICD Code) Assessment Notes Treatment Notes Treatment Clinical Notes Section Notes 08/18/2023 Epilepsy, unspecified, intractable, without status epilepticus (ICD-10 - G40.919) Continue current doses of Briviact and Lamictal. F/u in 7 weeks, this will be 6 months from last seizure, if remains stable/seizure-f ree will clear driving at that time 08/18/2023 Encounter for therapeutic drug level monitoring (ICD-10 - Z51.81) Lamotrigine level reviewed, therapeutic. Plan Of Treatment Medication Medication Name Sig Start Date Stop Date Notes Briviact 100 MG 1/2 orally 2 times a day 03/10/2023 lamoTRIgine 100 MG 0.5 tab in AM, 1.5 t ab in PM orally as directed for 30 days Treatment Notes Assessment Notes Epilepsy, unspecified, intra ctable, without status epilepticus Continue current doses of Briviact and Lamictal. F/u in 7 weeks, this will be 6 months from last seizure, if remains stable/seizure-free will clear driving at that time Encounter for therapeutic dr ug level monitoring Lamotrigine level reviewed, therapeutic. Next Appt Details Follow Up: 7 weeks, Reason: Evaluation and Management Progress Notes * Maurice HOUSTONeeDOB:1975 (47 yo F)Acc No.[id number]:08/18/2023 Progress Notes Patient: Sejal DE LOS SANTOS Provider: Shawna Forman MD :1975 A ge:47 Y S ex:Female Date:08/18/2023 Address:[address] [place], [place] [id number] Pcp:Sridhar Britt MD Subjective: * Chief Complaints: [...] injury; no first degree relative with epilepsy Prior Testing: -Brain MRI in 05/2022 was negative/normal. -EEG in 12/2022 was normal. She doesn't know what her EEG testing showed when she was younger -Cardiac event monitor (21-day) s howed no arrhythmias -Echo showed EF 40-50%. -Cardiac catheterization was negative for CAD. LAST VISIT HISTORY: Last visit was on 04/27/2023. Last visit tried to increase lamotrigine to 250 mg daily, but she had side effects and had to go back to the 200 mg daily dose. She is also on Briviact 50 mg bid (100 mg daily); she also feels that this is probably her highest tolerable dose because she feels dizzy/loopy for about 30 minutes after dosing. In the interim, she stopped amiodarone and subsequently felt much better, so a lot of her symptoms last time were side effects of this medication. She no longer has dizziness. She denies frequent orthostasis. She does report slight/mild hand tremors, especially with stress or anxiety. She denies recurrent seizures; last was in mid-March 2023. Her ICD has been interrogated and is functioning properly and she has not been shocked. She is overall doing much better, she is back to work part-time with restrictions. * Previous Impression & Plan: Notes Previous Diagnoses: 1. Epilepsy, unspecified, intractable, without status epilepticus - G40.919 (Primary) 2. Encounter for therapeutic drug level monitoring - Z51.81 Previous Recommendations: 1. Continue lamotrigine 200 mg daily and Briviact 100 mg daily. 2. Check trough lamotrigine and Briviact levels. * Interval History: Notes Interval History: Last visit was on 0 06/01/23. In the interim, lamotrigine level was 19.7. Lamotrigine 50 mg - 150 mg; Briviact 50 mg bid. She is tolerating these doses. She has not had recurrent seizures. * ROS: C ONSTITUTIONAL: Positive for P [...] /p ICD * Hospitalization/Major Diagno stic Procedure: * Family History: No epilepsy in first degree relatives. * Social History: Non smoker, no EtOH abuse, no illicit drug use. * Medications: T akingLaMICtal 25 MG Tablet 5 tab(s) orally 2 times a day lamoTRIgine 100 MG Tablet 0.5 pill in am and 1.5 pills in pm orally as directed Briviact 100 MG Tablet 1/2 orally 2 times a day Taking LaMICtal 25 MG Tablet 5 tab(s) orally 2 times a day Taking lamoTRIgine 100 MG Tablet 0.5 pill in am and 1.5 pills in pm orally as directed Taking Briviact 100 MG Tablet 1/2 orally 2 times a day Not-Taking/PRNAmiodarone HCl 400 MG Tablet 1 tab(s) orally once a day Metoprolol Succinate ER 25 MG Tablet Extended Release 24 Hour 1 tab(s) orally once a day Medication List reviewed and reconciled with the patientNot-Taking/PRN Amiodarone HCl 400 MG Tablet 1 tab(s) orally once a day Not-Taking/PRN Metoprolol Succinate ER 25 MG Tablet Extended Release 24 Hour 1 tab(s) orally once a day Medication List reviewed and reconciled with the patient * Allergies: A moxicillin: allen[Allergies Verified] Objective: * Vitals: B P:109/75mm Hg, HR:69/min, Pulse Oximetry:100%, Ht: 62 in, Wt: 146.2 lbs, BMI:26.74Index. * Examination: G eneral examination: General appearance: P leasant, well-developed, well-nourished. HEENT: P upils equal, round and reactive to light. Neurologic exam: A lert and oriented x 4. Fluent speech. Intact recall, fund of knowledge. Appropriate affect. Cranial nerves II-XII intact; subtle end-gaze nystagmus. Cerebellar testing with slight bilateral postural/action tremor. Gait is steady. Assessment: * Assessment: 1. E pilepsy, unspecified, intractable, without status epilepticus - G40.919 (Primary) ? 2 . E ncounter for therapeutic drug level monitoring - Z51.81 Plan: * Treatment: 2. E ncounter for therapeutic drug level monitoring Notes: Lamotrigine level reviewed, therapeutic. * Procedure Codes: G 8427 DOC MEDS VERIFIED W/PT OR RE * Follow Up: 7 weeks (Reason: Evaluation and Management) * Billing Information: * Visit Code: 14642 Office Visit, Est Pt., Level 4. Modifiers: 25 * Procedure Codes: G8427 DOC MEDS VERIFIED W/PT OR RE. * Sign off status: Completed true * Provider: Shawna Forman MD Date: 0 08/18/2023 Generated for Apollo boyd/Jazmín/Donna on: 0 03/31/2024 05:06 PM CABINET FINISHER History and Physical Notes * HPI (History of Present Illness) Category Sub-Category Detail Notes Category Notes *Introduction I had the pleasure of seeing [...] injury; no first degree relative with epilepsy Prior Testing: -Brain MRI in 05/2022 was negative/normal. -EEG in 12/2022 was normal. She doesn't know what her EEG testing showed when she was younger -Cardiac event monitor (21-day) showed no arrhythmias -Echo showed EF 40-50%. -Cardiac catheterization was negative for CAD. LAST VISIT HISTORY: Last visit was on 04/27/2023. Last visit tried to increase lamotrigine to 250 mg daily, but she had side effects and had to go back to the 200 mg daily dose. She is also on Briviact 50 mg bid (100 mg daily); she also feels that this is probably her highest tolerable dose because she feels dizzy/loopy for about 30 minutes after dosing. In the interim, she stopped amiodarone and subsequently felt much better, so a lot of her symptoms last time were side effects of this medication. She no longer has dizziness. She denies frequent orthostasis. She does report slight/mild hand tremors, especially with stress or anxiety. She denies recurrent seizures; last was in mid-March 2023. Her ICD has been interrogated and is functioning properly and she has not been shocked. She is overall doing much better, she is back to work part-time with restrictions *Previous Impression & Plan Notes Previous Diagnoses:1. Epilep sy, unspecified, intractable, without status epilepticus - G40.919 (Primary)2. Encounter for therapeutic drug level monitoring - Z51.81Previous Recommendations:1. Continue lamotrigine 200 mg daily and Briviact 100 mg daily. 2. Check trough lamotrigine and Briviact levels *Interval History Notes Interval History: Last visit was on 06/01/23. In the interim, lamotrigine level was 19.7. Lamotrigine 50 mg - 150 mg; Briviact 50 mg bid. She is tolerating these doses. She has not had recurrent seizures Examination Category Sub-Category Detail Notes Category Not es General examination HEENT: Pupils equal , round and reactive to light General appearance: Pleasant, well-devel oped, well-nourished Neurologic exam: Alert and oriented x 4. Fluent speech. Intact recall, fund of knowledge. Appropriate affect. Cranial nerves II-XII intact; subtle end-gaze nystagmus. Cerebellar testing with slight bilateral postural/action tremor. Gait is steady
--- OUTSIDE RECORDS SUMMARY | 2024-03-31 17:06 | XMS_ITS | Encounter Summary ---
Author Organization [facility] Address [address] [place] [address] Care Team Providers Care Cad Administrator Name Role Phone Sridhar Britt MD Primary Care Provider Rudolph Alvares MD Unavailable [phone] Encounter Details Date Type Department Care Team (Late st Contact Info) Description 10/06/2021 Lab Requisition [facility] [address] [place] [id number] William Mitchell MD [address] [place] [address] Social History Tobacco Use Types Packs/Day Years Used Date Smoking Tobacco: Never Smokeless Tobacco: Never Alcohol Use Standard Drinks/Week Comments Yes 0 (1 standard drink = 0.6 oz pur e alcohol) 0-1 on holidays Sex and Gender Information Value Date Recorded Sex Assigned at Not on file Gender Identity Not on file Sexual Orientation Not on file documented as of this encounter Plan of Treatment Not on file documented as of this encounter Procedures Procedure Name Priority Date/Time Associated Diagnosis Comments DERMATOPATHOLOGY Routine 10/06/2021 12:0 0 AM CDT documented in this encounter Results * DERMATOPATHOLOGY (10/06/2021 12:00 AM CDT) Case Report Dermatopathology Report Case: [id number] Authorizing Provider: William Mitchell MD Collected: 10/06/2021 12:00 AM Ordering Location: [facility] Lab Received: 10/06/2021 04:37 PM [...] specimen consists of a shave removal measuring 1o6m1tw. Jar 0. 3:57 PM CDT DERMATOPATHOLOGY LABORATORY Microscopic Description [...] characteristic determined by the Dermatopathology Laboratory at [facility], directed by Dr. Andrew Seo. These tests need not be, and therefore are not, approved by the [place] Food and Drug Administration. The tests are used for clinical purposes. Billing Codes Specimen Charges Stain Charges 78067 1 2 3:57 PM CDT DERMATOPATHOLOGY LABORATORY Embedded Images 2 3:57 PM CDT DERMATOPATHOLOGY LABORATORY Pathology/Cytolog y TISSUE SPECIMEN FROM SKIN / Unknown 10/06/2021 10/06/2021 4:37 PM CDT William Mitchell MD LAB - PATHOLOGY/CYTO LOGY ORDERABLES DERMATOPATHOLOGY LABORATORY [facility] - Department of Dermatology [address], [address] [phone] documented in this encounter Visit Diagnoses Not on filedocumented in this encounter Care Teams Cad Administrator Relationship Specialty Start Date End Date Sridhar Britt MD [facility] [place] [address] [address] [place] [address] PCP - General Internal Medicine 12/12/17 Rudolph Alvares MD [address] [facility] [address] [place] [address] PCP - Attributed-[employer] [place] 03/10/21 07/25/22 documented as of this encounter
--- OUTSIDE RECORDS SUMMARY | 2024-03-31 17:06 | XMS_ITS | Clinical Summary ---
Author Organization [facility] Care Team Providers Care Composition Instructor Name Role Phone Unavailable Primary Care Provider Unavailabl e Social History Tobacco Use Types Packs/Day Years Used Date Smoking Tobacco: Never Assessed Comments Unknown Sex and Gender Information Value Date Recorded Sex Assigned at Not on file Legal Sex Female 12:58 PM [employer] OFFIC[employer] Gender Identity Not on file Sexual Orientation Not on file Plan of Treatment Health Maintenance Due Date Last Done Comments Hepatitis C Virus (HCV) Screening 1975 Hepatitis B Immunization (1 of 3 - 19+ 3-dose series) 10/19/1994 Pap Smear 10/19/1996 Cervical Cancer Screening (CCS) 10/19/2005 HPV/Cotest 10/19/2005 Discussion re Starting/Frequency of Mammograms 2015 Colonoscopy 10/19/2020 Colorectal Cancer Screening 10/19/2020 Influenza Immunization (#1) 2023 11/20/2018 SARS-COV-2 Immunization ( season) 2023 12/19/2020, 05/09/2020, 04/20/2020 Respiratory Syncytial Virus (RSV) Immunization (Adult) (1 - 1-dose 75+ series) 10/19/2050 DTaP/Tdap/Td Immunization Discontinued 11/20/2018 TdaP Immunization Completed 11/20/2018 Meningococcal Immunization (ACWY) Aged Out No longer eligible based on patient's age to complete this topic Pneumococcal Immunization Combined Aged Out No longer eligible based on patient's age to complete this topic Rotavirus Immunization Aged Out No lo nger eligible based on patient's age to complete this topic
--- OUTSIDE RECORDS SUMMARY | 2024-03-31 17:06 | XMS_ITS | CONTINUITY OF CARE DOCUMENT ---
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 Rai Mathew MD Hx of seizure active Rai Mathew MD Cardiomyopathy--EF 40-50% by cath active To galileo Mathew MD ENCOUNTERS Date Type Provider Location Encounter Diag nosis - In-person encounter Office Visit Rai Mathew MD [facility] EpilepsyVentricular fibrillation--no CAD, cath 12/2022Hx of seizureCardiomyopathy--EF 40-50% by cath VITAL SIGNS Date Observation Value Provider Body Mass Index (Ratio) 28.52 kg/m2 Sandoval Mathew MD blood pressure, diastolic 67 mm[Hg] Li nkLogic blood pressure, systolic 100 mm[Hg] Rufina kLogic blood pressure, cuff size regular Ja rret blood pressure, diastolic 67 mm[Hg] Ja rret blood pressure, systolic 100 mm[Hg] Jar ret erday pulse rate 71 /min y respiratory rate E&M 12 /min oxygen saturation, oximetry 99 % height E&M 63 [in_i] y weight E&M 161 [lb_av] y ALLERGIES Allergy Name Onset Date Reaction Criticality Status PENICILLIN Low Criticality active HISTORY OF MEDICATION USE Medication Status Instructions Dates Provider Indications Com ments metoprolol succinate 25 mg tablet extended release 24 hr active lamotrigine 100 mg tablet active lamotrigine 25 mg tablet active SOCIAL HISTORY Date Observation Value Provider smoking status Never smoker INSURANCE PROVIDERS Payer name Policy type / Coverage type [place] red republican [employer] [facility] [employer] Commercial insurance co rafat [id number] ADVANCE DIRECTIVES Name Date DISCUSSED - NO DECISION MADE TREATMENT PLAN Date Name Performer Cardiology [facility] Date Name Complete Echo Monitor - Telemetry (Mobile Cardiac) HISTORY OF PROCEDURES Procedure Date Procedure Name Provider Procedure Notes S tatus EKG Rai Mathew MD completed EKG Rai Mathew MD completed GENNA Lerner MD completed
[2024-03-31 17:16] VITALS: BP 102/61; PULSE 68; RESP 16; TEMP 36.4; O2SAT 100
--- OUTSIDE RECORDS SUMMARY | 2024-03-31 18:29 | XMS_ITS | Clinical Summary ---
Author Organization [facility] Address [address] [place] [address] Care Team Providers Care Rn Lactation Consultant Name Role Phone Sridhar Britt MD Primary Care Provider [phone] Source Comments [facility],non-owned Affiliates and Associated Physician Practices is amultiple site organization consisting of ambulatory clinics and hospital sitesin [place], [place], [place] and [place]. This disclosure is being madepursuant to the Care Everywhere program and may not contain all information available regarding this patient. Last updated 17.[facility] Allergies Active Allergy Reactions Criticality Noted Date [...] at 53, RSR in V1/V2, ERWP, intervals [id number] 12/25 Event recorder: Chest pain , shortness [...] age to complete this topic Care Teams Rn Lactation Consultant Relationship Specialty Start Date End Date Sridhar Britt MD [address] [place] [address] [place] [phone] PCP - General Internal Medicine 12/12/17
--- OUTSIDE RECORDS SUMMARY | 2024-03-31 18:29 | XMS_ITS | Clinical Summary ---
Author Organization [facility] [place] [address] Care Team Providers Care Business Asst Name Role Phone Sridhar Britt MD Primary [...] 12/16/2020 Assessment & Plan (12/16/2020 9:36 AM PAEDIATRICIAN): Patient describes episodic headaches typically brought on by emotional stressors with historical characteristics consistent with muscle contraction type headache. She enjoys a normal neurological examination at this time. I would recommend kqvn-mxq-fxoryoz anti-inflammatories on an as-needed basis if the headaches do recur. Generalized idiopathic epile psy and epileptic syndromes, not intractable, without status epilepticus 11/01/2019 Assessment & Plan (12/16/2020 9:35 AM PAEDIATRICIAN): Patient continues on lamotrigine 100 mg b.i.d. with good tolerability and no seizures reported over the past year. I have reviewed teratogenicity and suggested use of an fltm-wpk-gaegvnz multivitamin with folic acid an effort to [...] Department Care Team Description 03/01/2024 10:45 AM PAEDIATRICIAN - 03/01/2024 11:59 PM PAEDIATRICIAN Hospital Encounter [facility] Cardiac Diagnostic Lab [address]th [place] [address] Ventricular fibrillation (CMS/HCC) (HCC); Cardiac arrest (HCC) Discharge Disposition: Discharge to home or self care 02/24/2024 Orders Only [facility] Cardiology [address] [facility] 8[address] [place] [address] [place] [address] Francisco Javier Narayanan MD from Last 3 Months Surgical History Surgery Date Site/Laterality Comments [place] APPENDECTOMY 02/08/1996 - 02/06/1997 Appendectomy - (Added [...] drink = 0.6 oz pur e alcohol) [facility] Utilities Answer Date Recorded In the past [...] often do you attend chur ch or mosque services? Patient declined 04/18/2023 Do you belong to any clubs o r organizations such as bahai groups, unions, fraternal or athletic groups, or [...] place to sleep or slept in a assisted (including now)? No 04/18/2023 Personal Safety Answer Date Recorded Have you ever been in or are you currently in a harmful physical or emotional relationship or is someone making you feel afraid or unsafe? Denies 09/08/2023 Comments No Sex and Gender Information Value Date Recorded Sex Assigned at Not on file Legal Sex Female 4:51 AM PAEDIATRICIAN Gender Identity Not on file Sexual Orientation [...] this topic Medical Devices Implanted Type Area Clam Bed Laborer Device Identifier Shelf Expiration Date Model / Serial / Lot [employer] C.[employer]M. Emblegacy [facility] Mri S-Icd 83.1x69.1mm Pulse Generator Battery Subcutaneous A219 - [id number] - [id number] Implanted:Qty: 1 on 04/14/2023 by Francisco Javier Narayanan MD at [facility] ICD [employer] C.[employer]M. 02/20/2025 [id number] / [id number] / [employer] Gin Emble S-Icd Subcutaneous Electrode Defibrillator 3501 - [id number] - [id number] Implanted:Qty: 1 on 04/14/2023 by Francisco Javier Narayanan MD at [facility] Subcutaneous Defibrillator Electrode [employer] Gin 02/15/2025 3501 / [id number] / Procedures Procedure Name Priority Date/Time Associated Diagnosis Comments TRANSTHORACIC ECHO (TTE) COMPLETE W DOPPLER/CF WO CONTRAST Routine 03/01/2024 11:52 AM PAEDIATRICIAN Ventricular fibrillation (CMS/HCC) (HCC) Cardiac arrest (HCC) DEVICE CHECK - REMOTE Routine 02/24/2024 9:43 AM PAEDIATRICIAN from Last 3 Months Results * TRANSTHORACIC ECHO (TTE) COMPLETE W DOPPLER/CF WO CONTRAST (03/01/2024 11:52 AM PAEDIATRICIAN) LV EF % CONS SCIMAGE Anatomical Region Laterality Modality Ultrasound 03/01/2024 11:0 3 AM PAEDIATRICIAN Narrative 03/02/2024 3:03 PM PAEDIATRICIAN [facility] [place] [address] Transthoracic Echocardiographic Report Patient Name: SEJAL HOUSTON L : 1975 (48y 4m) Gender: F Study Date: 03/01/2024 11:03:28 AM Ht(Inch): 63 Wt(Lb): 143.08 BSA: 1.7 Real Estate Transaction Manager: raul mena Location: [facility] Order Provider: DICK SALMERON Heart Rate: 68 BMI: 25.34 BP: 123 / 75 Quality: The study images were of technically good quality. Ref Provider: DICK SALMERON PROCEDURES: Echocardiographic Report: ([id number], [id number]) Transthoracic complete echo with strain imaging, 2D, [...] ESV Mod 2C 30.44 ml PV Accel [place] 323.38 cm/sec2 ESV Mod 4C 28.41 ml [...] By: Deshawn Bansal MD 03/01/2024 3:00:13 PM PAEDIATRICIAN Electronically Signed By: Jose Estevez MD 03/02/2024 3:02:49 PM PAEDIATRICIAN Procedure Note Jose Estevez MD - 03/02/2024 [facility] [place] [address] Transthoracic Echocardiographic Report Patient Name: SEJAL HOUSTON L : 1975 (48y 4m) Gender: F Study Date: 03/01/2024 11:03:28 AM Ht(Inch): 63 Wt(Lb): 143.08 BSA: 1.7 Real Estate Transaction Manager: raul mena Location: [facility] Order Provider: DICK SALMERON Heart Rate: 68 BMI: 25.34 BP: 123 / 75 Quality: The study images were oftechnically good quality. Ref Provider: DICK SALMERON PROCEDURES: Echocardiographic Report: ([id number], [id number]) Transthoracic complete echo withstrain imaging, 2D, spectral [...] - 1.50 ] RWT 0.33 MV Decel Jhqd790.78 msec [ 104.00 - 258.00 ] LV [...] [ 46.00 - 106.00 ] PV Accel Mdat967.65 msec [ 103.00 - 142.00 ] ESV Mod 2C 30.44 ml PV Accel Tuzco899.38 cm/sec2 ESV Mod 4C28.41 ml ESV Mod [...] cm/m2 [ 10.00 - 18.00 ] RA Uidoem14.25 ml RA Volume Index13.09 ml/m2 IVC Diam1.11 [...] study completed on 08/18/2023. No change compared [facility] study. ATTESTATION: I have reviewed and interpreted [...] By: Deshawn Bansal MD 03/01/2024 3:00:13 PM PAEDIATRICIAN Electronically Signed By: Jose Estevez MD 03/02/2024 3:02:49 PM PAEDIATRICIAN us Dick Salmeron MD CV ECHO PROCEDURES Irene l Result * DEVICE CHECK - REMOTE (02/24/2024 9:43 AM PAEDIATRICIAN) Anatomical Region Laterality Modality Other 02/24/2024 9:43 AM PAEDIATRICIAN Narrative 02/24/2024 8:17 AM PAEDIATRICIAN Interpretation Summary: Battery and Leads (BL) Normal parameters noted on battery and lead(s) --- 92 % remaining Presenting Rhythm (WI) Ventricular Sensing (VS) --- rate 110's Arrhythmic events (AE) No new arrhythmic events in monitoring period Transmission Information (TI) Device Summary Report Procedure Note Francisco Javier Narayanan MD - 02/24/2024 Interpretation Summary: Battery and Leads (BL) Normal parameters noted on battery and lead(s) --- 92 % remaining Presenting Rhythm (WI) Ventricular Sensing (VS) --- rate 110's Arrhythmic events (AE) No new arrhythmic events in monitoring period Transmission Information (TI) Device Summary Report Francisco Javier Narayanan MD CV CARDIAC SERVI KANDICE PROCEDURES Final Result from Last 3 Months Insurance [facility] ANTHEM ACCESS CHOICE ANTHEM ACCESS CHOICE Advance Directives For more information, please contact: [phone] * Full Code (Latest Code Status on File) Date Activated Date Inactivated Comments 04/04/2023 6:53 AM 04/16/2023 3:35 PM * Full Code Date Activated Date Inactivated Comments 12/16/2022 3:10 PM 12/17/2022 10:36 PM Care Teams Business Asst Relationship Specialty Start Date End Date Sridhar Britt MD PCP - General 04/08/18
--- OUTSIDE RECORDS SUMMARY | 2024-03-31 18:29 | XMS_ITS | CONTINUITY OF CARE DOCUMENT ---
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
--- OUTSIDE RECORDS SUMMARY | 2024-03-31 18:29 | XMS_ITS ---
Author Organization [facility] Address [address] [place] [address] Care Team Providers Care Tourist Information Assistant Name Role Phone Sridhar Britt MD Primary Care Provider Dr. Jose Armstrong Unavailable [phone] ZZ-Migration, Provider Unavailable Unavailab le Allergies Allergen (clinical drug ingredient) Drug/Non Drug Allergy documented on EMR Reaction Allergy Type Onset Date Status amoxicillin Amoxicillin rash Drug Allergy Act tiana REASON FOR VISIT [facility] To [facility] Conversion Encounter Medications Medication SIG (Take, [...] MG 1/2 orally 2 times a day for 30 days 03/10/2023 Active Encounters Encounter Location Date Provider Diagnosis [address] [address] 07/23/2023 Provider ZZ-Migration Plan Of Treatment No Information Progress Notes * Maurice HOUSTONeeDOB:1975 (48 yo F)Acc No.[id number]:07/23/2023 Patient: Sejal DE [place] Provider: Rebekah barnett Migration :1975 A ge:47 Y S ex:Female Date:07/23/2023 Address:[address] [facility] Pcp:Sridhar Britt MD Subjective: * Chief Complaints: [...] * Electronic signature of Zack CHOPRA-Migration on 03/31/2024 at 05:06 PM BELLMAKER Sign off status: Pending * Provider: Rebekah barnett Migration Date: 0 07/23/2023 Generated for Apollo boyd/Jazmín/Donna on: 0 03/31/2024 05:06 PM BELLMAKER
--- OUTSIDE RECORDS SUMMARY | 2024-03-31 18:29 | XMS_ITS | Encounter Summary ---
Author Organization [facility] Address [address] [place] [address] Care Team Providers Care District Supervisor Name Role Phone Unavailable Primary Care Provider Unavailabl e Encounter Details Date Type Department Care Team (Late st Contact Info) Description 03/31/2024 Mobile Encounter [facility] Neurology [address] [place] [address] Maribell Brar MD [address] [place] [address] Social History Tobacco Use Types Packs/Day Years Used Date Smoking Tobacco: Never Assessed Comments Unknown Sex and Gender Information Value Date Recorded Sex Assigned at Female 01/27/2024 8:02 PM AUTOMATIC DATA PROCESSING PLANNER Legal Sex Female 2:32 PM AUTOMATIC DATA PROCESSING PLANNER Gender Identity Female 01/27/2024 8:02 PM AUTOMATIC DATA PROCESSING PLANNER Sexual Orientation Straight 01/27/2024 8: 02 PM AUTOMATIC DATA PROCESSING PLANNER documented as of this encounter Progress Notes [...] it refilled through them. Patient voiced understanding. MATIC DATA PROCESSING PLANNER documented in this encounter Plan of Treatment Upcoming Encounters Date Type Department Care Team (Late st Contact Info) Description 04/02/2024 10:00 AM AUTOMATIC DATA PROCESSING PLANNER Office Visit [facility] Neurology [facility] [address] [facility] [address] [place] [address] [place] [address] [address] documented as of this encounter Visit Diagnoses Not on filedocumented in this encounter
--- OUTSIDE RECORDS SUMMARY | 2024-03-31 18:29 | XMS_ITS | Referral Summary ---
Author Organization [facility] Address [address] [facility] [place] [address] Care Team Providers Care Disaster Recovery Coordinator Name Role Phone Sridhar Britt MD Primary Care Provider Source Comments [facility],non-owned Affiliates and Associated Physician Practices is amultiple site organization consisting of ambulatory clinics and hospital sitesin [place], [place], [place] and [place]. This disclosure is being madepursuant to the [...] at 53, RSR in V1/V2, ERWP, intervals [phone] 12/25 Event recorder: Chest pain , shortness [...] of Treatment Not on file Care Teams Disaster Recovery Coordinator Relationship Specialty Start Date End Date Sridhar Britt MD [address] [place] [address] [address] [place] [address] PCP - General Internal Medicine 12/12/17
--- OUTSIDE RECORDS SUMMARY | 2024-03-31 18:29 | XMS_ITS | Encounter Summary ---
Author Organization [facility] Healthcare Address [address] [place] [address] Care Team Providers Care Tobacco Cutter Name Role Phone Sridhar Britt MD Primary Care Provider Dianne Fontana RN Unavailable [phone] Encounter Details Date Type Department Care Team (Late st Contact Info) Description 12/16/2022 Orders Only [facility] Cardiac Catheterization Lab [address] [place] [address] Amador Hong MD [address] [place] [address] Cardiac arrest (HCC) (Primary Dx) Social History Tobacco Use Types Packs/Day Years Used Date Smoking Tobacco: Never Smokeless Tobacco: Never Alcohol Use Standard Drinks/Week Comments Defer 0 (1 standard drink = 0.6 oz pur e alcohol) [facility] Utilities Answer Date Recorded In the past 12 months has [employer], gas, oil, or water [employer] threatened to shut off services in your [...] week 12/17/2022 How often do you attend [facility] or zoroastrianism services? Patient declined 12/17/2022 Do you belong to any clubs o r organizations such as evangelical groups, unions, fraternal or athletic groups, or [...] in a nursing home (including now)? No 12/17/2022 Comments Unknown Sex and Gender Information Value Date Recorded Sex Assigned at Not on file Legal Sex Female 4:51 AM DIGITAL MUSIC INSTRUCTOR Gender Identity Not on file Sexual Orientation [...] COVID: Suspected 04/04/2023 04/04/2023 04/04/2023 11:39 AM DIGITAL MUSIC INSTRUCTOR Influenza, adult 04/04/2023 04/04/2023 04/11/2023 9:41 AM DIGITAL MUSIC INSTRUCTOR documented as of this encounter Care Teams Tobacco Cutter Relationship Specialty Start Date End Date Sridhar Britt MD PCP - General 04/08/18 Dianne Fontana RN [address] [facility] [address] [place] [address] [facility] Outpatient Heat Treat Worker 04/18/23 05/08/23 documented as of this encounter
--- OUTSIDE RECORDS SUMMARY | 2024-03-31 18:29 | XMS_ITS | Patient Health Summary ---
Author Organization [facility] Address [address] [place] [address] Care Team Providers Care Roofing Machine Operator Name Role Phone Sridhar Britt MD Primary Care Provider Note from [facility],non-owned Affiliates and Associated Physician Practices is amultiple site organization consisting of ambulatory clinics and hospital sitesin [place], [place], [place] and [place]. This disclosure is being madepursuant to the Care Everywhere program and may not contain all information available regarding this patient. Last updated 17.[facility] Allergies * Penicillins(Urticaria) -Medium Criticality Medications * [...] AM CDT) Case Report Dermatopathology Report Case: [id number] Authorizing Provider: William Mitchell MD Collected: 10/06/2021 12:00 AM Ordering Location: [facility] DermPath Lab Received: 10/06/2021 04:37 [...] specimen consists of a shave removal measuring 8q1e4ft. Jar 0. 2 3:57 PM CDT DERMATOPATHOLOGY [...] characteristic determined by the Dermatopathology Laboratory at [facility], directed by Dr. Andrew Seo. These tests need not be, and therefore are not, approved by the [place] Food and Drug Administration. The tests are used for clinical purposes. Billing Codes Specimen Charges Stain Charges 91050 1 2 3:57 PM CDT DERMATOPATHOLOGY LABORATORY Embedded Images 2 3:57 PM CDT DERMATOPATHOLOGY LABORATORY Pathology/Cytolog y TISSUE SPECIMEN FROM SKIN / Unknown 10/06/2021 10/06/2021 4:37 PM CDT William Mitchell MD LAB - PATHOLOGY/CYTO LOGY ORDERABLES DERMATOPATHOLOGY LABORATORY [facility] Department of Dermatology [address] [phone] * STREP A SCREEN (10/15/2020 6:35 PM CDT) Strep A Rapid POCT Negative Negative [facility] Strep A Internal Control Present [facility] Lot # [id number] [facility] Expiration Date 06/06/21 [facility] Throat ENTIRE THROAT (SURFACE REGION OF NECK) / Unknown 10/15/2020 6:35 PM CDT Shanon Falcon APRN-[facility] LAB - POINT OF CA RE ORDERABLES [facility] [address] [phone] * CARDIAC EVENT MONITOR (01/18/2018 9:38 AM COMMERCIAL PARTS PROFESSIONAL) Narrative Tere Harkins RDMS - 01/18/2018 9:38 AM COMMERCIAL PARTS PROFESSIONAL Tere Harkins RDMS 01/18/2018 9:38 AM See scan Reinier Dhillon MD CARDIAC SERVICES ORD ERABLES * EKG 12-LEAD (12/13/2017 3:20 PM COMMERCIAL PARTS PROFESSIONAL) Narrative Tere Harkins RDMS - 12/13/2017 3:20 PM COMMERCIAL PARTS PROFESSIONAL Tere Harkins RDMS 12/13/2017 3:20 PM See scan Reinier Dhillon MD ECG ORDERABLES * STRESS TEST WALKING (12/13/2017 3:19 PM COMMERCIAL PARTS PROFESSIONAL) Narrative Tere Harkins RDMS - 12/13/2017 3:19 PM COMMERCIAL PARTS PROFESSIONAL Tere Harkins RDMS 12/13/2017 3:19 PM See scan Reinier Dhillon MD CARDIAC SERVICES ORD ERABLES Care Teams Roofing Machine Operator Relationship Specialty Start Date End Date Sridhar Britt MD [address] [place] [address] [address] [place] [address] PCP - General Internal Medicine 12/12/17
--- OUTSIDE RECORDS SUMMARY | 2024-03-31 18:29 | XMS_ITS | Encounter Summary ---
Author Organization [facility] Address [address] [facility] [place] [address] Care Team Providers Care Supervisor Accounting Clerks Name Role Phone Sridhar Britt MD Primary Care Provider Rudolph Alvares MD Unavailable [phone] Encounter Details Date Type Department Care Team (Late st Contact Info) Description 10/06/2021 Lab Requisition [facility] Care DermPath Lab [address] [facility] [place] [address] William Mitchell MD [address] [place] [address] Social History Tobacco Use Types [...] AM CDT) Case Report Dermatopathology Report Case: [id number] Authorizing Provider: William Mitchell MD Collected: 10/06/2021 12:00 AM Ordering Location: [facility] DermPath Lab Received: 10/06/2021 04:37 PM [...] specimen consists of a shave removal measuring 8m3w4fg. Jar 0. 3:57 PM CDT DERMATOPATHOLOGY LABORATORY [...] characteristic determined by the Dermatopathology Laboratory at [facility], directed by Dr. Andrew Seo. These tests need not be, and therefore are not, approved by the [place] Food and Drug Administration. The tests are used for clinical purposes. Billing Codes Specimen Charges Stain Charges 64590 1 2 3:57 PM CDT DERMATOPATHOLOGY LABORATORY Embedded Images 2 3:57 PM CDT DERMATOPATHOLOGY LABORATORY Pathology/Cytolog y TISSUE SPECIMEN FROM SKIN / Unknown 10/06/2021 10/06/2021 4:37 PM CDT William Mitchell MD LAB - PATHOLOGY/CYTO LOGY ORDERABLES DERMATOPATHOLOGY LABORATORY [facility] - Department of Dermatology [address] [phone] documented in this encounter Visit Diagnoses Not on filedocumented in this encounter Care Teams Supervisor Accounting Clerks Relationship Specialty Start Date End Date Sridhra Britt MD [facility] [address] [address] [place] [address] PCP - General Internal Medicine 12/12/17 Rudolph Alvares MD [address] [facility] [address] [place] [address] PCP - Attributed-[employer] [place] 03/10/21 07/25/22 documented as of this encounter
--- OUTSIDE RECORDS SUMMARY | 2024-03-31 18:29 | XMS_ITS | Referral Summary ---
Author Organization [facility] Address [facility] [place] [address] Care Team Providers Care Mask Inspector Name Role Phone Sridhar Britt MD Primary Care Provider Encounters Date Type Department Care Team Description 03/01/2024 10:45 AM EXECUTIVE PRODUCER PROMOS - 03/01/2024 11:59 PM EXECUTIVE PRODUCER PROMOS Hospital Encounter [facility] Cardiac Diagnostic Lab [address] [facility] 8th [place] [id number] Ventricular fibrillation (CMS/HCC) (HCC); Cardiac arrest (HCC) Discharge Disposition: Discharge to home or self care 02/24/2024 Orders Only [facility] [address] [facility] 8th [place] [address] [place] [address] Francisco Javier Narayanan MD from Last 3 [...] 12/16/2020 Assessment & Plan (12/16/2020 9:36 AM EXECUTIVE PRODUCER PROMOS): Patient describes episodic headaches typically brought on by emotional stressors with historical characteristics consistent with muscle contraction type headache. She enjoys a normal neurological examination at this time. I would recommend prqa-vdm-zmlczob anti-inflammatories on an as-needed basis if the headaches do recur. Generalized idiopathic epile psy and epileptic syndromes, not intractable, without status epilepticus 11/01/2019 Assessment & Plan (12/16/2020 9:35 AM EXECUTIVE PRODUCER PROMOS): Patient continues on lamotrigine 100 mg b.i.d. with good tolerability and no seizures reported over the past year. I have reviewed teratogenicity and suggested use of an rmvi-ine-qkuamor multivitamin with folic acid an effort to [...] 0.6 oz pur e alcohol) [facility] Utilities Answer Date Recorded In the past [...] often do you attend chur ch or jew services? Patient declined 04/18/2023 Do you belong to any clubs o r organizations such as samaritan groups, unions, fraternal or athletic groups, or [...] place to sleep or slept in a jail (including now)? No 04/18/2023 Personal Safety Answer Date Recorded Have you ever been in or are you currently in a harmful physical or emotional relationship or is someone making you feel afraid or unsafe? Denies 09/08/2023 Comments No Sex and Gender Information Value Date Recorded Sex Assigned at Not on file Legal Sex Female 4:51 AM EXECUTIVE PRODUCER PROMOS Gender Identity Not on file Sexual Orientation [...] on file Medical Devices Implanted Type Area Yarrow Gatherer Device Identifier Shelf Expiration Date Model / Serial / Lot [employer] [facility] S-Icd 83.1x69.1mm Pulse Generator Battery Subcutaneous A219 - [id number] - [id number] Implanted:Qty: 1 on 04/14/2023 by Francisco Javier Narayanan MD at [facility] ICD [employer] C.[employer]M. 02/20/2025 [id number] / [id number] / [employer] Emblem S-Icd Subcutaneous Electrode Defibrillator 3501 - [id number] - [id number] Implanted:Qty: 1 on 04/14/2023 by Francisco Javier Narayanan MD at [facility] Subcutaneous Defibrillator Electrode [employer] 02/15/2025 3501 / [id number] / Procedures Procedure Name Priority Date/Time Associated Diagnosis Comments TRANSTHORACIC ECHO (TTE) COMPLETE W DOPPLER/CF WO CONTRAST Routine 03/01/2024 11:52 AM EXECUTIVE PRODUCER PROMOS Ventricular fibrillation (CMS/HCC) (HCC) Cardiac arrest (HCC) DEVICE CHECK - REMOTE Routine 02/24/2024 9:43 AM EXECUTIVE PRODUCER PROMOS from Last 3 Months Results * TRANSTHORACIC ECHO (TTE) COMPLETE W DOPPLER/CF WO CONTRAST (03/01/2024 11:52 AM EXECUTIVE PRODUCER PROMOS) LV EF % CONS SCIMAGE Anatomical Region Laterality Modality Ultrasound 03/01/2024 11:0 3 AM EXECUTIVE PRODUCER PROMOS Narrative 03/02/2024 3:03 PM EXECUTIVE PRODUCER PROMOS [facility] [place]iac [place] [address] Transthoracic Echocardiographic Report Patient Name: SEJAL HOUSTON L : 1975 (48y 4m) Gender: F Study Date: 03/01/2024 11:03:28 AM Ht(Inch): 63 Wt(Lb): 143.08 BSA: 1.7 Ham Stripper: raul mena Location: [facility] Order Provider: DICK SALMERON Heart Rate: 68 BMI: 25.34 BP: 123 / 75 Quality: The study images were of technically good quality. Ref Provider: DICK SALMERON PROCEDURES: Echocardiographic Report: ([id number], [id number]) Transthoracic complete echo with strain imaging, 2D, [...] ESV Mod 2C 30.44 ml PV Accel [place] 323.38 cm/sec2 ESV Mod 4C 28.41 ml [...] By: Deshawn Bansal MD 03/01/2024 3:00:13 PM EXECUTIVE PRODUCER PROMOS Electronically Signed By: Jose Estevez MD 03/02/2024 3:02:49 PM EXECUTIVE PRODUCER PROMOS Procedure Note Jose Estevez MD - 03/02/2024 [facility] [place] [address] [place] [address] Transthoracic Echocardiographic Report Patient Name: SEJAL HOUSTON L : 1975 (48y 4m) Gender: F Study Date: 03/01/2024 11:03:28 AM Ht(Inch): 63 Wt(Lb): 143.08 BSA: 1.7 Ham Stripper: raul mena Location: [facility] Order Provider: DICK SALMERON Heart Rate: 68 BMI: 25.34 BP: 123 / 75 Quality: The study images were oftechnically good quality. Ref Provider: DICK SALMERON PROCEDURES: Echocardiographic Report: ([id number], [id number]) Transthoracic complete echo withstrain imaging, 2D, spectral [...] - 1.50 ] RWT 0.33 MV Decel Vmkn311.78 msec [ 104.00 - 258.00 ] LV [...] [ 46.00 - 106.00 ] PV Accel Npwv059.65 msec [ 103.00 - 142.00 ] ESV Mod 2C 30.44 ml PV Accel Ehkwm340.38 cm/sec2 ESV Mod 4C28.41 ml ESV Mod [...] cm/m2 [ 10.00 - 18.00 ] RA Scpncl36.25 ml RA Volume Index13.09 ml/m2 IVC Diam1.11 [...] study completed on 08/18/2023. No change compared [facility] study. ATTESTATION: I have reviewed and [...] By: Deshawn Bansal MD 03/01/2024 3:00:13 PM EXECUTIVE PRODUCER PROMOS Electronically Signed By: Jose Estevez MD 03/02/2024 3:02:49 PM EXECUTIVE PRODUCER PROMOS Dick Salmeron MD CV ECHO PROCEDURES Irene l Result * DEVICE CHECK - REMOTE (02/24/2024 9:43 AM EXECUTIVE PRODUCER PROMOS) Anatomical Region Laterality Modality Other 02/24/2024 9:43 AM EXECUTIVE PRODUCER PROMOS Narrative 02/24/2024 8:17 AM EXECUTIVE PRODUCER PROMOS Interpretation Summary: Battery and Leads (BL) Normal parameters noted on battery and lead(s) --- 92 % remaining Presenting Rhythm (NJ) Ventricular Sensing (VS) --- rate 110's Arrhythmic events (AE) No new arrhythmic events in monitoring period Transmission Information (TI) Device Summary Report Procedure Note Francisco Javier Narayanan MD - 02/24/2024 Interpretation Summary: Battery and Leads (BL) Normal parameters noted on battery and lead(s) --- 92 % remaining Presenting Rhythm (NJ) Ventricular Sensing (VS) --- rate 110's Arrhythmic events (AE) No new arrhythmic events in monitoring period Transmission Information (TI) Device Summary Report Francisco Javier Narayanan MD CV CARDIAC SERVI KANDICE PROCEDURES Final Result from Last [address] [facility] HMO/PPO Address: [address] [address] ANTHEM ACCESS CHOICE ANTHEM ACCESS CHOICE Advance Directives For more information, please contact: [phone] * Full Code (Latest Code Status on File) Date Activated Date Inactivated Comments 04/04/2023 6:53 AM 04/16/2023 3:35 PM * Full Code Date Activated Date Inactivated Comments 12/16/2022 3:10 PM 12/17/2022 10:36 PM Care Teams Mask Inspector Relationship Specialty Start Date End Date Sridhar Britt MD PCP - General 04/08/18
--- OUTSIDE RECORDS SUMMARY | 2024-03-31 18:30 | XMS_ITS | Clinical Summary ---
Author Organization [facility] Care Team Providers Care Tin Dipper Name Role Phone Unavailable Primary Care Provider Unavailabl e Social History Tobacco Use Types Packs/Day Years Used Date Smoking Tobacco: Never Assessed Comments Unknown Sex and Gender Information Value Date Recorded Sex Assigned at Not on file Legal Sex Female 12:58 PM LOSS PREVENTION DETECTIVE Gender Identity Not on file Sexual Orientation [...]
--- OUTSIDE RECORDS SUMMARY | 2024-03-31 18:30 | XMS_ITS | Clinical Summary ---
Author Organization [address] Address [address] [place] [address] Care Team Providers Care Audio Visual Tech Name Role Phone Unavailable Primary Care Provider Unavailabl e Encounters Date Type Department Care Team Description 03/31/2024 Mobile Encounter [facility] Neurology [address] [place] [phone] Maribell Brar MD from Last 3 Months Social History Tobacco Use Types Packs/Day Years Used Date Smoking Tobacco: Never Assessed Comments Unknown Sex and Gender Information Value Date Recorded Sex Assigned at Female 01/27/2024 8:02 PM COOKING SHOW HOST Legal Sex Female 2:32 PM COOKING SHOW HOST Gender Identity Female 01/27/2024 8:02 PM COOKING SHOW HOST Sexual Orientation Straight 01/27/2024 8: 02 PM COOKING SHOW HOST Plan of Treatment Upcoming Encounters Date Type Department Care Team (Late st Contact Info) Description 04/02/2024 10:00 AM COOKING SHOW HOST Office Visit [facility] Neurology [employer] [address] [facility] [address] [place] [address] [place] [address] [address] Health Maintenance Due Date Last [...]
--- NOTE | 2024-03-31 19:11 | PC.NURSE ---
Report received from NADINE Velasco. Assumed care of patient at this time.
--- NOTE | 2024-04-02 07:32 | ED.RECABL ---
HPI - Recheck/Abnormal Lab/Rx General Chief Complaint: Recheck/Abnormal Lab/Rx Stated Complaint: MED REFILL Time Seen by Provider: 03/31/24 18:20 History of Present Illness HPI narrative: 48-year-old female with history of epilepsy presenting to the ED for refill of her chronic medication including Briviact. Patient has no complaints today, has no symptoms, has tried calling her regular doctor who is out of the country right now and the on-call physician would not prescribe her this medication. Patient takes this medication twice daily and has run out and has a history of epilepsy. Patient has no complaints at this time is requesting refill of medications until she can see her doctor after this weekend. Related Data Home Medications ?Medication ?Instructions ?Recorded ?Confirmed ?Last Taken ?Type lamotrigine 100 mg tablet 03/22/19 Unknown History lamotrigine 150 mg tablet 03/22/19 Unknown History Allergies Allergy/AdvReac Type Severity Reaction Status Date / Time Penicillins Allergy Unknown Hives Verified 03/31/24 17:04 Review of Systems Review of Systems: As reviewed [facility] Past Medical History Medical History depression Epilepsy Surgical History Surgical History Hx of appendectomy Social History Social History Smoking status: Never smoker Gender identity (if verbalized by the patient): Female Exam Narrative: GENERAL: [Well-appearing, well-nourished, and in no acute distress.] HEAD: [Normocephalic, atraumatic.] EYES: [PERRLA and EOMI.] CHEST: No respiratory distress, no tachypnea EXTREMITIES: Normal range of motion. [No edema.] SKIN: Warm, dry, no rash. NEURO: [No focal deficits]. Alert and oriented [x3.] Course Vital Signs Vital signs: Vital Signs Temperature 36.4 C 03/31/24 17:16 Pulse Rate 68 03/31/24 17:16 Respiratory Rate 16 03/31/24 17:16 Blood Pressure 102/61 03/31/24 17:16 Pulse Oximetry 100 03/31/24 17:16 Oxygen Delivery Room Air 03/31/24 17:16 Temperature 36.4 C 03/31/24 17:16 Pulse Rate 68 03/31/24 17:16 Respiratory Rate 16 03/31/24 17:16 Blood Pressure 102/61 03/31/24 17:16 Pulse Oximetry 100 03/31/24 17:16 Oxygen Delivery Room Air 03/31/24 17:16 MDM - Recheck/Abnormal Lab/Rx MDM Narrative Medical decision making narrative: 48-year-old female presenting for medication refill. Patient has no complaints at this time, tried calling her regular doctor was out of the country. Patient takes Briviact twice daily 50 mg. Has missed her morning dose medication today, no seizure activity today, normal vital signs, unremarkable examination. Called and spoke to several pharmacies and was able to find a place that had this medication in stock tonight. Prescriptions sent electronically over there, patient was instructed to go and receive the medication tonight and take her medications tonight as well as continue in follow-up with regular doctor. Patient is safe for discharge. Differential Diagnosis Differential diagnosis: Likely encounter for medication refill Medical Records Attestation: I reviewed the patient's medical records. Discharge Plan Discharge Clinical Impression: Encounter for medication refill Patient Disposition: Home, Self-Care Condition: Stable Instructions: Antibiotic Form Additional Instructions: We sent you a refill of a short-term course of Briviact to [facility] pharmacy in [place] at [address] [place], [address]. Spoke to the pharmacist to confirm they have the medication in stock and prescription received. Follow-up with regular doctor when they returned office. Return with any new concerns. Patient Language: Hungarian Prescriptions: New Briviact 50 mg tablet 50 mg PO BID 10 Days Qty: 20 0RF No Action silver sulfadiazine 1 % cream 1 applic topical BID Qty: 20 0RF Rx Instructions: apply a 1.5 mm thickness lamotrigine 150 mg tablet lamotrigine 100 mg tablet famotidine [Pepcid] 20 mg tablet 20 mg PO BID 15 Days Qty: 30 0RF dicyclomine 10 mg capsule 10 mg PO BID 5 Days Qty: 10 0RF Follow-up/Referrals: Balwinder,Sridhar Medina MD [Primary Care Provider] - Time of Disposition: 19:31
== END 2024-03-31 19:50 | disposition home or self-care (01) ==
PROVIDERS: Emergency Provider Student in an Organized Health Care Education/Training Program; PCP Internal Medicine
DX: G40.909 Epilepsy, unspecified, not intractable, without status epilepticus (principal); Z76.0 Encounter for issue of repeat prescription
CPT/HCPCS: 99283

== ENCOUNTER 2024-05-31 18:48 | Emergency (ER) | payer BC, SELFPAY ==
--- NOTE | ~2024-05-31 | XR_ITS ---
HISTORY: Thumb injury COMPARISON: None TECHNIQUE: 3 views of the right hand were performed. FINDINGS: No acute fracture is identified. Degenerative disease is identified within the first carpometacarpal joint space suggesting osteoarthr itis. Gullwing deformity is identified within the proximal interphalangeal joint spaces of the second, thir d, fourth and fifth digits. Narrowing of the distal interphalangeal joint spaces are also noted. The remaining joint spaces are otherwise preserved. The carpal arcs are intact. Mild radiocarpal joint space narrowing with sclerosis of the distal radius is present. Bone mineralization is age-appropriate. No significant soft tissue swelling. No radiopaque foreign body is identified. IMPRESSION: Degenerative disease without acute fracture, as detailed above. Reviewed, dictated and finalized at location A.
--- OUTSIDE RECORDS SUMMARY | 2024-05-31 18:51 | XMS_ITS ---
Author Organization [facility] [employer] [facility] [employer] ([address]) Address [address] [place] [address] Care Team Providers Care Bale Stacker Name Role Phone Sridhar Britt MD Primary Care Provider [facility]. Jose [facility] [phone] REASON FOR VISIT Refills Medications Medication SIG (Take, Route, Fr equency, Duration) Notes Start Date End Date Status lamoTRIgine 100 MG 0.5 tab in AM, 1.5 t ab in PM orally with meals as directed for 30 days Active Encounters Encounter Location Date Provider Diagnosis [address] [address] 04/02/2024 Jose Forman Epilepsy, unspecif ied, not intractable, without status epilepticus G40.909 Assessments Encounter Date Diagnosis (ICD Code) Assessment Notes Treatment Notes Treatment Clinical Notes Section Notes 04/02/2024 Epilepsy, unspecified, not intractable, without status epilepticus (ICD-10 - G40.909) Plan Of Treatment Medication Medication Name Sig Start Date Stop Date Notes lamoTRIgine 100 MG 0.5 tab in AM, 1.5 t ab in PM orally with meals as directed for 30 days Progress Notes * Maurice HOUSTONeeDOB:1975 (48 yo F)Acc No.[id number]:04/02/2024 Patient: Sejal DE LOS SANTOS :1975 A ge:48 Y S ex:Female [address] [place] [address] * Refills Refill lamoTRIgine Tablet, 100 MG, orally, 60, 0.5 tab in AM, 1.5 tab in PM, with meals as directed, 30 days, Refills=0 * true * Date: Generated for Apollo boyd/Jazmín/Donna on: 0 05/31/2024 06:50 PM CDT
--- OUTSIDE RECORDS SUMMARY | 2024-05-31 18:51 | XMS_ITS ---
Author Organization [employer] [facility] [employer] [place] ([address]) Address [address] [place] [address] Care Team Providers Care Stitching Machine Operator Name Role Phone Sridhar Britt MD Primary Care Provider Dr. Jose Armstrong [facility] [phone] Allergies Allergen (clinical drug ingredient) Drug/Non Drug [...] Status W/U Status Risk Notes Problem Epilepsy (72894313) Epilepsy, unspecified, not intractable, without status epilepticus (G40.909) Active confirmed Vital Signs Blood pressure systolic 94 mm Hg 10/06/19 24 Blood pressure diastolic 68 mm Hg 024 Height 62 in 10/06/2023 Weight 140.8 lbs 10/06/2023 BMI 25.75 kg/m2 10/06/2023 Oximetry 100 % 10/06/2023 Encounters Encounter Location Date Provider Diagnosis [facility] [address] [place] [address] 10/06/2023 Jose Forman Epilepsy, unspecified, not intractable, [...] Evaluation and Management Progress Notes * Maurice HOUSTONTrishOB:1975 (47 yo F)Acc No.[id number]:10/06/2023 Progress Notes Patient: Sejal DE LOS SANTOS Provider: Shawna Forman MD :1975 A ge:47 Y S ex:Female Date:10/06/2023 Address:[address] [place], [place] [id number] Pcp:Sridhar Britt MD Subjective: * Chief Complaints: [...] with the patient * Allergies: A moxicillin: riamno[Allergies Verified] Objective: * Vitals: B P:94/68mm Hg, [...] Management) * Billing Information: * Visit Code: 47174 Office Visit, Est Pt., Level 3. Modifiers: 25 * Procedure Codes: G8427 DOC MEDS VERIFIED W/PT OR RE. * Sign off status: Completed true * Provider: Shawna Forman MD Date: 10/06/2023 Generated for Apollo boyd/Jazmín/eTtasmitting on: 0 05/31/2024 06:51 PM CDT History and Physical Notes * HPI (History [...]
--- OUTSIDE RECORDS SUMMARY | 2024-05-31 18:51 | XMS_ITS | Patient Health Record ---
Author Organization [employer] [facility] [employer] ([address]) Address [address] [place] [address] Care Team Providers Care Freelance Operator Name Role Phone Sridhar Britt MD Primary Care Provider Dr. Jose Armstrong Unavailable [phone] [facility], Provider Unavailable Unavailab le Allergies Allergen [...] Status W/U Status Risk Notes Problem Epilepsy (80283565) Epilepsy, unspecified, not intractable, without status epilepticus (G40.909) Active confirmed Problem Epilepsy, unspecified, intractable, without status epilepticus (G40.919) Active confirmed Problem Chronic migraine without aura, non-refractory (disorder) (588203488609632 ) Migraine without aura, not intractable, without status migrainosus (G43.009) Active confirmed Problem Migraine with aura (0261863) Migraine with aura, not intractable, without status migrainosus (G43.109) Active confirmed Problem Chronic migraine without aura, non-intractable (898785063327453 ) Chronic migraine without aura, not intractable, without status migrainosus (G43.709) Active confirmed Problem Insomnia (136172502) Insomnia, unspecified (G47.00) Active confirmed Problem Therapeutic drug monitoring, quantitative (regime/therapy) (11840489) Encounter for therapeutic drug level monitoring (Z51.81) Active confirmed Vital Signs Respiratory Rate 16 /min 06/01/2023 Oximetry 100 % 10/06/2023 Blood pressure diastolic 68 mm Hg 10/06/2023 Height 62 in 10/06/2023 Blood pressure systolic 94 mm Hg 10/06/2023 Weight 140.8 lbs 10/06/2023 BMI 25.75 kg/m2 10/06/2023 Encounters Encounter Location Date Provider Diagnosis [address] [address] 07/23/2023 Provider [facility] [place] [address] [address] 06/01/2023 Jose Forman Epilepsy, unspecified, intractable, without status epilepticus G40.919 and Encounter for therapeutic drug level monitoring Z51.81 [place] [address] [facility] [address] [place] [address] 08/18/2023 Jose Forman Epilepsy, unspecified, intractable, without status epilepticus G40.919 and Encounter for therapeutic drug level monitoring Z51.81 [place] [address] [facility] [address] [address] 10/06/2023 Jose Forman Epilepsy, unspecified, not intractable, without status epilepticus G40.[address] [address] 06/01/2023 Jose Forman Encounter for therapeutic drug level monitoring Z51.81 [facility] [address] [place] [address] 06/15/2023 Jose Forman [facility] [address] [place] [address] 04/02/2024 Jose Forman Epilepsy, unspecified, not intractable, without [...] 6 months from last seizure, if remains stable/seizure- free will clear driving at that time 08/18/2023 [...] She is medically cleared to resume driving 04/02/2024 Epilepsy, unspecified, not intractable, without status epilepticus (ICD-10 - G40.909) 06/01/2023 Epilepsy, unspecified, intractable, without status epilepticus (ICD-10 - G40.919) Continue lamotrigine 200 mg daily and Briviact 100 mg daily. 06/01/2023 Encounter for therapeutic drug level monitoring (ICD-10 - Z51.81) Check trough lamotrigine and Briviact levels. Plan Of Treatment Pending Test Test Name Order Date Lamotrigine (Lamictal), Serum 06/01/2023 Insurance Providers Payer Name Payer Address Payer Phone Subscriber Number Group Number Insured Name Patient Relationship to Insured Coverage Start Date Coverage End Date [facility] [address] [address] [place], [place] [id number] Miguel Angel Abrams Spouse - patient is the spouse of the insured Medical (General) History Medical History History ICD Code Epilepsy H/o cardiac arrest after seizure x2 Surgical History Surgery Date(Month/Year) S/p ICD
--- OUTSIDE RECORDS SUMMARY | 2024-05-31 18:51 | XMS_ITS | Data Portability ---
Author Organization [facility] [employer], Main Office Address [address] [place] [address] Assessment No assessment recorded. Plan of Treatment Reminders Order Date Submit Date Provider Last Modified By Organization Details Last Modified Time Details Appointments None recorded . Lab CBC w/ auto diff 024 01/26/[address] Out[facility] Lab, [address] [place], [address], 4 12:35:29 CMP, serum or plasma 024 01/26/[address] Out[facility] Lab, [address] [place], [address], 4 12:36:56 lipid panel, serum 024 01/26/[address] Out[facility] Lab, [address] [place], [address], 4 12:40:10 lipid panel, serum 023 02/04/[address] Out[facility] Lab, [address] [place], [address], 4 13:12:19 CMP, serum or plasma 023 02/04/[address] Out[facility] Lab, [address] [place], [address], 4 13:12:20 CRP, high sensitiv ity, serum or plasma 023 02/04/[address] Out[facility] Lab, [address] [place], [address], 13:12:20 Referral None recorded . Procedures None recorded . Surgeries None recorded . Imaging None recorded . Medication Orders None recorded . Patient TargetsNo targets recorded. Patient Instructions Encounter Date Encounter Id Patient Instructions Last Modified By Organization Details Last Modified Time 02/03/2023 [id number] Follow up cardia c arrest and seizure [...] recognize, using context, where substitutions have occurred. [email or web address] Not available 02/03/2023 11:28:35 05/26/2023 [id number] Seizure disorder , ventricular fibrillation. Plan is to continue on current Rx. Will get copies the most recent diagnostic studies performed at [place] as well as history Nina and Keith. New on current Rx in the interim. Follow-up in four months pending those results Get copies of any cardiac evaluation including echocardiogram as well as Holter monitors etc. from [facility] or more back where she had the cardiac catheterization performed. Next Appointment: 4 Months Approximate Date: 09/23/2023 Portions of the record may have been created with voice recognition software. Occasional wrong-word or s ound-a-like substitutions may have occurred due to the inherent limitations of voice recognition software. Read the chart carefully and recognize, using context, where substitutions have occurred. 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 Try to get a copy of [...] Created: Sridhar Britt M.D. 01.26.2024 09:56 AM [email or web address] Not available 01/26/2024 10:56:38 Reason for Referral [...] provi ders and patie nts at the [facility]: https ://ww w.fda .gov/ media /1363 12/do wnloa d https ://ww w.fda .gov/ media /1363 13/do wnloa d Metho dolog y: Real- Time RT-PC R Not Available [facility] (Lab) [address] [place], [address], 01/19/2023 14:22:51 03/31/19 24 03/31/2023 COVID -19, [...] provi ders and patie nts at the [facility]: https ://ww w.fda .gov/ media /1363 12/do wnloa d https ://ww w.fda .gov/ media /1363 13/do wnloa d Metho dolog y: Real- Time RT-PC R Not Available [facility] (Lab) [address] [place], [address], 03/31/2023 14:12:38 03/31/19 24 03/31/2023 COVID -19, INFLU TUNG A+B, PCR influenza A RNA, RT-PCR POSITI VE abnormal Not Available [facility] (Lab) [address] [place], [address], 03/31/2023 14:12:38 03/31/19 24 03/31/2023 COVID -19, INFLU TUNG A+B, PCR influenza B RNA, RT-PCR NEGATI VE abnormal Not Available [facility] (Lab) [address] [place], [address], 03/31/2023 14:12:38 01/26/20 24 01/27/2024 LIPID PANEL , STAND DEVIKA cholesterol, total 210 mg/dL <200 high Not Available [address] [address] [place], [address], 01/27/2024 11:18:41 01/26/20 24 01/27/2024 LIPID PANEL , STAND DEVIKA HDL cholesterol 63 mg/dL > or = 50 normal Not Available [address] [address] [place], [address], 01/27/2024 11:18:41 01/26/20 24 01/27/2024 LIPID PANEL , STAND DEVIKA triglyceride s 59 mg/dL <150 normal Not Available [address] [place], [address], 01/27/2024 11:18:41 01/26/20 24 01/27/2024 LIPID PANEL [...] calcu lated using the Tanika n-Hop kins saulou tsering n, which is a valid ated novel metho d provi ding vicky r accur acy than the Fried marino equat ion in the estim ation of LDL-C . Tanika n SS et al. JOSH. 2013; 310(1 0): 2061- 2068 (http ://ed ucati on.Nelda perkins [employer]. com/f aq/FA Q164) Not Available [address], [address], 01/27/2024 11:18:41 01/26/20 24 01/27/2024 LIPID PANEL , STAND DEVIKA chol/HDLC ratio 3.3 (calc ) <5.0 normal Not Available [address], [address], 01/27/2024 11:18:41 01/26/20 24 01/27/2024 LIPID PANEL , STAND DEVIKA non HDL cholesterol 147 mg/dL _(jennifer c) <130 high For patie nts with diabe donny plus 1 major ASCVD risk facto r, treat ing to a non-H DL-C goal of <100 mg/dL (LDL- C of <70 mg/dL ) is consi dered a thera peuti c optio n. Not Available [address], [address], 01/27/2024 11:18:41 01/26/20 24 01/27/2024 COMPR EHENS ELIEZER METAB OLIC PANEL glucose 82 mg/dL 65-99 normal Fasti ng refer ence inter alexandra Not Available [address], [address], 01/27/2024 11:18:43 01/26/20 24 01/27/2024 COMPR EHENS ELIEZER METAB OLIC PANEL urea nitrogen (BUN) 14 mg/dL 7-25 normal Not Available [address], [address], 01/27/2024 11:18:43 01/26/20 24 01/27/2024 COMPR EHENS ELIEZER METAB OLIC PANEL creatinine 1.33 mg/dL 0.50-0 .99 high Not Available [address], [address], 01/27/2024 11:18:43 01/26/20 24 01/27/2024 COMPR EHENS ELIEZER METAB OLIC PANEL eGFR 49 mL/mi n/1.7 3m2 > or = 60 low Not Available [address], [address], 01/27/2024 11:18:43 01/26/20 24 01/27/2024 COMPR EHENS ELIEZER METAB OLIC PANEL BUN/creatini ne ratio 11 (calc ) 6-22 normal Not Available [address], [address], 01/27/2024 11:18:43 01/26/20 24 01/27/2024 COMPR EHENS ELIEZER METAB OLIC PANEL sodium 142 mmol/ L 135-14 6 normal Not Available [address], [address], 01/27/2024 11:18:43 01/26/20 24 01/27/2024 COMPR EHENS ELIEZER METAB OLIC PANEL potassium 5.1 mmol/ L 3.5-5. 3 normal Not Available [address], [address], 01/27/2024 11:18:43 01/26/20 24 01/27/2024 COMPR EHENS ELIEZER METAB OLIC PANEL chloride 103 mmol/ L 98-110 normal Not Available [address], [address], 01/27/2024 11:18:43 01/26/20 24 01/27/2024 COMPR EHENS ELIEZER METAB OLIC PANEL carbon dioxide 31 mmol/ L 20-32 normal Not Available [address], [address], 01/27/2024 11:18:43 01/26/20 24 01/27/2024 COMPR EHENS ELIEZER METAB OLIC PANEL calcium 10.3 mg/dL 8.6-10 .2 high Not Available [address], [address], 01/27/2024 11:18:43 01/26/20 24 01/27/2024 COMPR EHENS ELIEZER METAB OLIC PANEL protein, total 7.3 g/dL 6.1-8. 1 normal Not Available [address], [address], 01/27/2024 11:18:43 01/26/20 24 01/27/2024 COMPR EHENS ELIEZER METAB OLIC PANEL albumin 4.8 g/dL 3.6-5. 1 normal Not Available [address], [address], 01/27/2024 11:18:43 01/26/20 24 01/27/2024 COMPR EHENS ELIEZER METAB OLIC PANEL globulin 2.5 g/dL_ (calc ) 1.9-3. 7 normal Not Available [address], [address], 01/27/2024 11:18:43 01/26/20 24 01/27/2024 COMPR EHENS ELIEZER METAB OLIC PANEL albumin/glob ulin ratio 1.9 (calc ) 1.0-2. 5 normal Not Available [address], [address], 01/27/2024 11:18:43 01/26/20 24 01/27/2024 COMPR EHENS ELIEZER METAB OLIC PANEL bilirubin, total 0.5 mg/dL 0.2-1. 2 normal Not Available [address], [address], 01/27/2024 11:18:43 01/26/20 24 01/27/2024 COMPR EHENS ELIEZER METAB OLIC PANEL alkaline phosphatase 142 U/L 31-125 high Not Available [address] [address] [place], [address], 01/27/2024 11:18:43 01/26/20 24 01/27/2024 COMPR EHENS ELIEZER METAB OLIC PANEL AST 16 U/L 10-35 normal Not Available [address], [address], 01/27/2024 11:18:43 01/26/20 24 01/27/2024 COMPR EHENS ELIEZER METAB OLIC PANEL ALT 11 U/L 6-29 normal Not Available [address], [address], 01/27/2024 11:18:43 01/26/20 24 01/27/2024 CBC (INCL UDES DIFF/ PLT) white blood cell count 6.4 thous and/u L 3.8-10 .8 normal Not Available [address], [address], 01/27/2024 11:18:44 01/26/20 24 01/27/2024 CBC (INCL UDES DIFF/ PLT) red blood cell count 4.37 sunny on/uL 3.80-5 .10 normal Not Available [address], [address], 01/27/2024 11:18:44 01/26/20 24 01/27/2024 CBC (INCL UDES DIFF/ PLT) hemoglobin 12.4 g/dL 11.7-1 5.5 normal Not Available [address], [address], 01/27/2024 11:18:44 01/26/20 24 01/27/2024 CBC (INCL UDES DIFF/ PLT) hematocrit 39.1 % 35.0-4 5.0 normal Not Available [address] [place], [address], 01/27/2024 11:18:44 01/26/20 24 01/27/2024 CBC (INCL UDES DIFF/ PLT) MCV 89.5 fL 80.0-1 00.0 normal Not Available [facility] [address], [address], 01/27/2024 11:18:44 01/26/20 24 01/27/2024 CBC (INCL UDES DIFF/ PLT) MCH 28.4 pg 27.0-3 3.0 normal Not Available [facility] [address], [address], 01/27/2024 11:18:44 01/26/20 24 01/27/2024 CBC (INCL UDES DIFF/ PLT) MCHC 31.7 g/dL 32.0-3 6.0 low For adult s, a sligh t decre ase in the calcu lated MCHC value (in the range of 30 to 32 g/dL) is most likel y not clini timo signi fican t; isaías er, it shoul d be inter prete d with cauti on in [facility] [place] with other red cell ella eters and the patie nt's clini jennifer condi tion. Not Available [address], [address], 01/27/2024 11:18:44 01/26/20 24 01/27/2024 CBC (INCL UDES DIFF/ PLT) RDW 14.3 % 11.0-1 5.0 normal Not Available [facility] [address], [address], 01/27/2024 11:18:44 01/26/20 24 01/27/2024 CBC (INCL UDES DIFF/ PLT) platelet count 550 thous and/u L 140-40 0 high Not Available [facility] [address], [address], 01/27/2024 11:18:44 01/26/20 24 01/27/2024 CBC (INCL UDES DIFF/ PLT) MPV 10.5 fL 7.5-12 .5 normal Not Available [address], [address], 01/27/2024 11:18:44 01/26/20 24 01/27/2024 CBC (INCL UDES DIFF/ PLT) absolute neutrophils 3629 cells /uL 1500-7 800 normal Not Available [address], [address], 01/27/2024 11:18:44 01/26/20 24 01/27/2024 CBC (INCL UDES DIFF/ PLT) absolute lymphocytes 2253 cells /uL 850-39 00 normal Not Available [address], [address], 01/27/2024 11:18:44 01/26/20 24 01/27/2024 CBC (INCL UDES DIFF/ PLT) absolute monocytes 429 cells /uL 200-95 0 normal Not Available [address], [address], 01/27/2024 11:18:44 01/26/20 24 01/27/2024 CBC (INCL UDES DIFF/ PLT) absolute eosinophils 0 cells /uL 15-500 low Not Available [address], [address], 01/27/2024 11:18:44 01/26/20 24 01/27/2024 CBC (INCL UDES DIFF/ PLT) absolute basophils 90 cells /uL 0-200 normal Not Available [address], [address], 01/27/2024 11:18:44 01/26/20 24 01/27/2024 CBC (INCL UDES DIFF/ PLT) neutrophils 56.7 % normal Not Available [address], [address], 01/27/2024 11:18:44 01/26/20 24 01/27/2024 CBC (INCL UDES DIFF/ PLT) lymphocytes 35.2 % normal Not Available [address], [address], 01/27/2024 11:18:44 01/26/20 24 01/27/2024 CBC (INCL UDES DIFF/ PLT) monocytes 6.7 % normal Not Available [address] [place], [address], 01/27/2024 11:18:44 01/26/20 24 01/27/2024 CBC (INCL UDES DIFF/ PLT) eosinophils 0.0 % normal Not Available [address], [address], 01/27/2024 11:18:44 01/26/20 24 01/27/2024 CBC (INCL UDES DIFF/ PLT) basophils 1.4 % normal Not Available [address], [address], 01/27/2024 11:18:44 02/22/19 24 02/22/2023 maritza r monit or No observ ation record ed. [facility] [address], [place], [address], 02/22/2023 15:14:16 06/20/19 24 06/08/2023 elect gomezar diogr am No observ ation record ed. [email or web address] Not Available 2023 11:52:16 06/20/19 24 04/06/2023 US, echoc ardio gram No observ ation record ed. Not Available 2023 11:31:36 06/20/19 24 US, echoc ardio gram No observ ation record ed. [email or web address] Not Available 2023 11:31:36 Result Notes None recorded. Problems Name Problem SNOMED Code Status Onset Date Resolution Date Notes Provider Name and Address Organization Details Recorded Time Foot swelling 391665607 Active Not Available [facility] 3 06:56:28 Chronic cough 50777227 Active 2018 Not Available [facility] 3 06:56:28 Cough 97673949 Active 2022 SEAN Hamlin, [place] [facility] 3 11:40:57 Pharyngitis 971645981 Active 2022 Sridhar Britt MD [address], [address], [place], [address] , [place] [facility] 3 14:53:44 Seizure disorder 137675930 Active 2022 Sridhar Britt MD [address], [address], [place], [address] , [place] [facility] 3 11:26:45 Fever 986269771 Active 2023 Sandi peters, [place] [facility] 4 10:25:46 Influenza 5189714 Active 2023 Sridhar Britt MD [address], [address], [place], [address] , [place] [facility] 4 14:56:55 Malaise and fatigue 437080107 Active 2023 SEAN Hamlin, [place] [facility] 4 10:48:27 Ventricular fibrillation 65446246 Active 2023 Sridhar Britt MD [address], [address], [place], [address] , [place] [facility] 4 12:14:48 Cardiomyopath y 64318305 Active 2023 Sridhar Britt MD [address], [address], [place], [address] , [facility] 4 10:51:30 Problem Notes None recorded. Procedures Surgical History None recorded. Imaging Results Imaging Date Name Status LastModified by Organization Details LastModified Time 02/22/2023 holter monitor completed [email or web address] [facility] [address], [place], [address], 02/22/2023 15:14:16 06/08/2023 electrocardiogram completed [email or web address] Informa tion not available 06/20/2023 11:52:16 04/06/2023 US, echocardiogram completed Inform ation not available 06/22/2023 11:31:36 06/20/2023 US, echocardiogram completed Inform ation not available 06/22/2023 11:31:36 Procedure Notes None recorded. Medical Equipment None Reported. Allergies Allergen ID Allergen Name Allergen Category Reaction Reaction Severity Criticality Documentation Date Start Date Code Code System Note Provider Name and Address Organization Details Recorded Time 14766 Product containin g penicilli n (product) medicatio n rash Not available Not available 04/07/2022 38331 8001 SNOMED Not Available [facility] 07:00:13 Medications Name Sig Start Date [...] Updated DateTime 3 158.75 cm 28.8 kg/m2 99823.7 8 g 97.3 [degF] 89 /min 16 /min 98 % 98 % 108 mm[Hg] 66 mm[Hg] Chen Castillo RN [facility] [employer] [facility] 3 11:03:29 Date Recorded Body height Body mass index (BMI) Body weight Heart rate Body temperature Oxygen saturation Oxygen saturation in Arterial blood by Pulse oximetry Systolic blood pressure Diastolic blood pressure Provider Name and Address Organization Details Last Updated DateTime 4 158.75 cm 25.9 kg/m2 21378.3 g 79 /min 97 [degF] 99 % 99 % 112 mm[Hg] 64 mm[Hg] Sandi Chavez [facility] [employer] [facility] 4 12:05:53 Date Recorded Body height Body mass index (BMI) Body weight Heart rate Body temperature Oxygen saturation Oxygen saturation in Arterial blood by Pulse oximetry Systolic blood pressure Diastolic blood pressure Provider Name and Address Organization Details Last Updated DateTime 4 158.75 cm 24.3 kg/m2 78390.9 7 g 79 /min 97 [degF] 97 % 97 % 110 mm[Hg] 62 mm[Hg] MYLENE Zarate [facility] [employer] [facility] 4 10:34:16 Social History None recorded. Functional [...] DISEASE/DISORDER N HISTORY OF DRUG ABUSE N COPD N RADIATION / CHEMOTHERAPY N Other # 2 N BLOOD DISEASES N EAR OR HEARING PROBLEMS N MUMPS N SHINGLES N BOWEL PROBLEMS N DEPRESSION (INCLUDING POST ) N FAILED BACK SYNDROME N STROKE/TIA N ULCERS N BENIGN PROSTATIC HYPERPLASIA N MEASLES N HYPOTENSION N MYOCARDIAL INFARCTION N OBESITY N GERD/NAUSEA N ANEURYSM N URINARY/BLADDER/KIDNEY PROBLEMS N CORONARY ARTERY DISEASE (CAD) N Do you have Advance directive? N ADDICTION CONCERNS N ENDOMETRIOSIS N Impotence N USE OF BLOOD THINNERS N SKIN PROBLEMS N GASTROINTESTINAL DISORDER N PERIPHERAL VASCULAR DISEASE N MUSCLE,JOINT OR BONE PROBLEMS N GASTROINTESTINAL BLEEDING N BLOOD CLOTS N ASTHMA N Abdominal Pain N CATARACTS N ARTERIAL INSUFFICIENCY N ERECTILE DYSFUNCTION N VARICOSITIES N GI PROBLEMS N Low Testosterone N INFERTILITY N AIDS/HIV N CHEMOTHERAPY / RADIATION N LIVER DISEASE N MALE HYPOGONADISM N HYPERTENSION N Deficiency N TOURETTE'S N ANXIETY DISORDER N BLOOD TRANSFUSION N ANEMIA/BLOOD DISORDER N CHRONIC EAR INFECTIONS N TUBERCULOSIS N GLAUCOMA N FOOT PROBLEM N DIVERTICULITIS N CHICKENPOX N SLEEP APNEA N BACK INJECTIONS N ALLERGIES/HAYFEVER N INFECTIOUS DISEASE N HEART ARRHYTHMIA N PROSTATE N ESRD N INSOMNIA N HIGH CHOLESTEROL / HYPERLIPIDEMIA N HYPERTHYROIDISM N EYE PROBLEMS N PVD N EDEMA N CHRONIC PAIN SYNDROME N HYPOTHYROIDISM N CONSTIPATION N CAROTID BLOCKAGE N BACK / NECK PROBLEMS N HAVE YOU BEEN HOSPITALIZED OR SEEN IN [facility] IN THE PAST YEAR ? N [...] N ALZHEIMER'S DISEASE N Brain Problems N HERPES N DEMENTIA N HEADACHES/MIGRAINES N SEIZURES/EPILEPSY Y VASCULAR DISEASE N PACEMAKER N DIZZINESS N HEART DISEASE/HEART PROBLEMS N KIDNEY DISEASE N MULTIPLE SCLEROSIS N NEUROPSYCHOLOGICAL N CARDIAC ARRHYTHMIA N CANCER: SPECIFY N ATRIAL FIBRILLATION N Gall Stones N PULMONARY EMBOLISM N AUTOIMMUNE DISEASE N Gynecological HistoryNo gynecological history recorded. Obstetrics History GPAL:G 0 P 0 0 0 0 Immunizations Vaccine Type Date Status Note Provider Nam e and Address Organization Details Recorded Time Influenza, split virus, trivalent, PF 01/26/2024 completed MYLENE Zarate, [place] [facility] 01/26/2024 11:45:16 Past Encounters Encounter ID Performer Location Encounter Start Date Encounter Closed Date Diagnosis/Indication Diagnosis SNOMED-CT Code Diagnosis ICD10 Code Diagnosis Note [id number] Sridhar Britt MD [facility] Internal Med [facility] [address] [address] 02/03/2023 10:53:44 02/03/2023 11:36:29 History of cardiac arrest 470429989 Z86.74 Seizure disorder 0552864 02 G40.880 [id number] Sridhar Britt MD [facility] Internal Med [address] [address] 05/26/2023 11:58:32 05/26/2023 12:26:17 Seizure disorder 204244303 G40.909 Ventricula r fibrillation 24509475 I49.01 [id number] Sridhar Britt MD [facility] Primary Care [address] [place] [address] 01/26/2024 10:27:26 01/26/2024 14:10:33 Adult health examination 338130771 Z00.00 Depression screening 171 936950 Z13.31 Cardiomyopathy 04921659 I42.9 Seizure disorder 9241013 02 G40.909 Ventricula r fibrillation 14080404 I49.01 Health Concerns Section Related Observation LastModified by Organization Detai ls LastModified Time None Recorded Concern Status LastModified by Organization Details LastModified Time None Recorded Advance Directives Directive None Recorded Payers Encounter Date Sequence Insurance Name Policy Number Policy Gandhi Covered Member ID Gandhi Member ID Guarantor Name 02/03/2023 1 [employer] [id number] Miguel Angel Abrams [id number] Sejal Abrams 05/26/2023 1 [employer]) [id number] Miguel Angel Abrams [id number] Sejal Abrams 01/26/2024 1 [employer]) [id number] Miguel Angel Abrams [id number] Sejal Abrams Notes Date Note Type Note [...] Systemic Symptoms:none Medication Reconciliation: from medication list. Logkdpsaowt09/12/2023: Ultrasound pelvis demonstrated thickening of the endometrial [...] MG BidADRs List Reviewed 02/03/2023enicillin RashVaccination and Ssoomebdbels5055-67 Fcnvyyxvw8006-94 Hep BSurgical HistoryAppendectomyPreventative Testing Confirmed by Our Sbrpagq5312/16/2022 ALBUMIN 3.6 G/DL N009/10/2022 MAMMOGRAM & ULTRASOUND 09/11/2023Social HistoryDoes not smokeDrinks sociallyWorks in medical recordsFamily HistoryMother 67 good healthFather 69 BDM, CADOne brother living and in good healthMenarche 12 Menopause A0 Sridhar Britt MD [address] [facility], [place], [address], [facility] [employer] 02/03/2023 11:28:58 024 text/jovany ml Patient Name: [...] Systemic Symptoms:none Medication Reconciliation: from medication list. 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, [facility] [address], [place], [address], [facility] [employer] 05/26/2023 12:21:26 024 text/ht ml Patient Name: [...] Systemic Symptoms:none Medication Reconciliation: from medication list. Cccstxinmqf02/12/2023: Ultrasound pelvis demonstrated thickening of the endometrial [...] ) 2007-05 HEP B(X) 2018-03 INFLUENZA Surgical Jpwokcw1103-91 RGBW7458-19 Appendectomy Preventative Testing( ) 12/16/2022 Albumin 3.6 [...] ) 2007-05 HEP B(X) 2018-03 INFLUENZA Surgical Qpmcghj1587-86 YFZS0092-16 Appendectomy Preventative Testing( ) 12/16/2022 Albumin 3.6 G/DL N(X) 09/10/2022 Mammogram & Ultrasound 09/11/2023 Social HistoryDoes not smokeDrinks sociallyWorks in medical records Family HistoryMother 67 good healthFather 69 BDM, CADOne brother living and in good healthMenarche 12 Menopause A0 Sridhar Britt MD [address] [facility], [facility] [address], [place], [address], [facility] [employer] 01/26/2024 10:56:56 OBGyn Episode No OBEpisode recorded.
--- OUTSIDE RECORDS SUMMARY | 2024-05-31 18:51 | XMS_ITS | CONTINUITY OF CARE DOCUMENT ---
Author Name kamaljti mari Address Unknown Organization [facility] Address [address] [facility] [address] [place] [address] Phone [phone] Care Team Providers Care Neurology Physician Assistant Name Role Phone Quincy MIDDLETON, Rai Unavailable LAUREN JEAN BAPTISTE MD Unavailable EDGARDO MIDDLETON, MC Unavailable PROBLEMS Condition Status Date Provider Notes Dizziness active Gala Aceves Epilepsy active Rai Mathew MD Ventricular fibrillation--no CAD, cath 12/2022 active Rai Mathew MD Hx of seizure active Rai Mathew MD Cardiomyopathy--EF 40-50% by cath active To galileo Mathew MD ENCOUNTERS Date Type Provider Location Encounter Diag nosis - In-person encounter Office Visit Rai Mathew MD [facility] EpilepsyVentricular fibrillation--no CAD, cath 12/2022Hx of [...] Payer name Policy type / Coverage type [place] red green party ID [facility] [address] [employer] Commercial insurance co rafat [id number] ADVANCE DIRECTIVES Name Date DISCUSSED - NO [...]
--- OUTSIDE RECORDS SUMMARY | 2024-05-31 18:51 | XMS_ITS | Clinical Summary ---
Author Organization [facility] Address [facility] [place] [address] Care Team Providers Care Travel Guide Name Role Phone Sridhar Britt MD Primary [...] Seizure 04/04/2023 Cardiogenic shock 04/04/2023 Ventricular fibrillation 12/16/2022 Cardiac arrest 12/16/2022 Episodic tension-type headache, not intractable 12/16/2020 Assessment & Plan (12/16/2020 9:36 AM KAYAKING INSTRUCTOR): Patient describes episodic headaches typically brought on by emotional stressors with historical characteristics consistent with muscle contraction type headache. She enjoys a normal neurological examination at this time. I would recommend losq-tmp-jitsspj anti-inflammatories on an as-needed basis if the headaches do recur. Generalized idiopathic epile psy and epileptic syndromes, not intractable, without status epilepticus 11/01/2019 Assessment & Plan (12/16/2020 9:35 AM KAYAKING INSTRUCTOR): Patient continues on lamotrigine 100 mg b.i.d. with good tolerability and no seizures reported over the past year. I have reviewed teratogenicity and suggested use of an snyl-dyc-rfwokzu multivitamin with folic acid an effort to [...] will see her back in 1 year. Surgical History Surgery Date Site/Laterality Comments [place] [...] drink = 0.6 oz pur e alcohol) [facility] Utilities Answer Date Recorded In the past 12 months has e [employer], oil, or [employer] threatened to shut off services in your [...] often do you attend chur ch or tenriism services? Patient declined 04/18/2023 Do you belong to any clubs o r organizations such as alevism groups, unions, fraternal or athletic groups, or [...] on file Legal Sex Female 4:51 AM KAYAKING INSTRUCTOR Gender Identity Not on file Sexual [...] Screening 10/19/1993 Regular Well Visit/Exam 18-64 10/19/1993 Pneumococcal vaccine <65 (1 of 2 - PCV) 10/19/1994 DTaP/Tdap/Td Vaccine (2 - Td or Tdap) 11/20/2028 Influenza Vaccine Completed 01/26/2024, 11/20/2018 Medical Devices Implanted Type Area School Services Officer Device Identifier Shelf Expiration Date Model / Serial / Lot [employer] C.R.M. [facility] S-Icd 83.1x69.1mm Pulse Generator Battery Subcutaneous A219 - [id number] - [id number] Implanted:Qty: 1 on 04/14/2023 by Francisco Javier Narayanan MD at [facility] ICD [employer] C.R.M. 02/20/2025 [id number] / [id number] / [employer] Gin Emblem S-Icd Subcutaneous Electrode Defibrillator 3501 - [id number] - [id number] Implanted:Qty: 1 on 04/14/2023 by Francisco Javier Narayanan MD at [facility] Subcutaneous Defibrillator Electrode [employer] Gin 02/15/2025 [id number] / [id number] / Insurance [id number] [place] [address] [facility] CHOICE ANTHEM ACCESS CHOICE Advance Directives For more information, please contact: [phone] * Full Code (Latest Code Status on File) Date Activated Date Inactivated Comments 04/04/2023 6:53 AM 04/16/2023 3:35 PM * Full Code Date Activated Date Inactivated Comments 12/16/2022 3:10 PM 12/17/2022 10:36 PM Care Teams Travel Guide Relationship Specialty Start Date End Date Sridhar Britt MD PCP - General 04/08/18
--- OUTSIDE RECORDS SUMMARY | 2024-05-31 18:51 | XMS_ITS | Referral Summary ---
Author Organization [facility] Address [facility] [place] [address] Care Team Providers Care Pamphlet Distributor Name Role Phone Sridhar Britt MD Primary [...] 12/16/2020 Assessment & Plan (12/16/2020 9:36 AM ICE CRUSHER): Patient describes episodic headaches typically brought on by emotional stressors with historical characteristics consistent with muscle contraction type headache. She enjoys a normal neurological examination at this time. I would recommend dxkw-khf-yijxahl anti-inflammatories on an as-needed basis if the headaches do recur. Generalized idiopathic epile psy and epileptic syndromes, not intractable, without status epilepticus 11/01/2019 Assessment & Plan (12/16/2020 9:35 AM ICE CRUSHER): Patient continues on lamotrigine 100 mg b.i.d. with good tolerability and no seizures reported over the past year. I have reviewed teratogenicity and suggested use of an bvef-heg-rmgakdz multivitamin with folic acid an effort to [...] drink = 0.6 oz pur e alcohol) [facility] Utilities Answer Date Recorded In the past 12 months has [employer], gas, oil, or water company threatened to [...] any clubs o r organizations such as yazidism groups, unions, fraternal or athletic groups, or [...] place to sleep or slept in a fdc (including now)? No 04/18/2023 Personal Safety Answer Date Recorded Have you ever been in or are you currently in a harmful physical or emotional relationship or is someone making you feel afraid or unsafe? Denies 09/08/2023 Comments No Sex and Gender Information Value Date Recorded Sex Assigned at Not on file Legal Sex Female 4:51 AM ICE CRUSHER Gender Identity Not on file Sexual Orientation [...] on file Medical Devices Implanted Type Area Academic Coach Device Identifier Shelf Expiration Date Model / Serial / Lot [employer] C.R.M. [employer] S-Icd 83.1x69.1mm Pulse Generator Battery Subcutaneous A219 - [id number] - [id number] Implanted:Qty: 1 on 04/14/2023 by Francisco Javier Narayanan MD at [facility] ICD [employer] C.R.M. 02/20/2025 [id number] / [id number] / [employer] Gin Emble S-Icd Subcutaneous Electrode Defibrillator 3501 - [id number] - [id number] Implanted:Qty: 1 on 04/14/2023 by Francisco Javier Narayanan MD at [facility] Subcutaneous Defibrillator Electrode [employer] Gin 02/15/2025 3501 / [id number] / Insurance [facility] HMO/PPO Address: [address] [address] [place] [address] ANTHEM ACCESS CHOICE ANTHEM ACCESS CHOICE Advance Directives For more information, please contact: [phone] * Full Code (Latest Code Status on File) Date Activated Date Inactivated Comments 04/04/2023 6:53 AM 04/16/2023 3:35 PM * Full Code Date Activated Date Inactivated Comments 12/16/2022 3:10 PM 12/17/2022 10:36 PM Care Teams Pamphlet Distributor Relationship Specialty Start Date End Date Sridhar Britt MD PCP - General 04/08/18
--- OUTSIDE RECORDS SUMMARY | 2024-05-31 18:51 | XMS_ITS | Clinical Summary ---
Author Organization [facility] Address [address] [facility] [place] [address] Care Team Providers Care On Call Pharmacy Technician Name Role Phone Sridhar Britt MD Primary Care Provider [phone] Source Comments [facility],non-owned Affiliates and Associated Physician Practices is amultiple site organization consisting of ambulatory clinics and hospital sitesin [place], [place], [place] and [place]. This disclosure is being madepursuant to the Care Everywhere program and may not contain all information available regarding this patient. Last updated 17.[facility] Allergies Active Allergy Reactions Criticality Noted Date Comments Penicillins Urticaria Medium 12/13/2017 Medications * Be aware that medications may not be up to date on this document. Alwaysverify current medications with the patient. lamoTRIgine (LAMICTAL) 100 MG tablet Take 100 mg by mouth 2 times daily Active Active Problems Problem Noted Date Diagnosed Date Atypical chest pain 12/13/2017 Overview (12/13/2017): 12/25 stress EKG 6:19--85% maximal heart rate, no ischemia, exercise tolerance 80% predicted Lightheadedness 12/12/2017 Overview (01/16/2018): 10/25 Holter: ? 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 Not on file Not on f ile Last Filed Vital Signs Vital Sign Reading [...] Health Maintenance Due Date Last Done Comments COLON MONITORING 1975 COLONOSCOPY - COLON CA SCREENING 1975 CT COLONOGRAPHY - COLON CA SCREENING 1975 FIT - COLON CA SCREENING 1975 FLEX SIG - COLON CA SCREENING 1975 LIPID TESTING 1975 MAMMOGRAM 1975 PAP SMEAR 1975 HIV SCREENING 10/19/1990 HEPATITIS C SCREENING 10/15/1993 DTAP/TDAP/TD VACCINES (1 - Tdap) 10/19/1994 HEPATITIS B VACCINE (1 of 3 - 19+ 3-dose series) 10/19/1994 COVID-19 VACCINE (3 - 2023-2 5 season) 2023 05/09/2020, 04/20/2020 DEPRESSION SCREENING 02/08/2024 INFLUENZA VACCINE (Season Ended) 2024 11/20/2018 COLOGUARD (AGES 45-75) - COL ON CA SCREENING 06/04/2025 06/04/2022 Colorectal Cancer Screening 06/04/2025 ZOSTER VACCINE (1 of 2) 10/19/2025 HIB VACCINE Aged Out No longer eligi ble based on patient's age to complete this topic HPV VACCINE Aged Out No longer eligi ble based on patient's age to complete this topic MENINGOCOCCAL (Group B) VACCINE SHARED DECISION-MAKING Aged Out No longer eligible based on patient's age to complete this topic MENINGOCOCCAL GROUPS A/C/Y/W VACCINE Aged Out No longer eligible b ased on patient's age to complete this topic PNEUMOCOCCAL VACCINE Aged Out No long er eligible based on patient's age to complete this topic Insurance [facility] Care Teams On Call Pharmacy Technician Relationship Specialty Start Date End Date Sridhar Britt MD [address] [place] [address] [address] [place] [address] PCP - General Internal Medicine 12/12/17
--- OUTSIDE RECORDS SUMMARY | 2024-05-31 18:51 | XMS_ITS | Encounter Summary ---
Author Organization [facility] Address [address] [place] [address] Care Team Providers Care Pack Operator Name Role Phone Sridhar Britt MD Primary Care Provider Dianne Fontana RN Unavailable [phone] Encounter Details Date Type Department Care Team (Late st Contact Info) Description 12/16/2022 Orders Only [facility] Cardiac Catheterization Lab [address] [place] [address] Amador Hong MD [address] [place] [address] Cardiac arrest (HCC) (Primary Dx) Social History Tobacco Use Types Packs/Day Years Used Date Smoking Tobacco: Never Smokeless Tobacco: Never Alcohol Use Standard Drinks/Week Comments Defer 0 (1 standard drink = 0.6 oz pur e alcohol) [facility] Utilities Answer Date Recorded In the past 12 months has [employer], gas, oil, or water [employer] threatened to shut off services in your [...] week 12/17/2022 How often do you attend [facility] or mormon services? Patient declined 12/17/2022 Do you belong to any clubs o r organizations such as pentecostal groups, unions, fraternal or athletic groups, or [...] place to sleep or slept in a [place] health care facility (including now)? No 12/17/2022 Comments Unknown Sex and Gender Information Value Date Recorded Sex Assigned at Not on file Legal Sex Female 4:51 AM SHIPPING CHECKER Gender Identity Not on file Sexual Orientation [...] COVID: Suspected 04/04/2023 04/04/2023 04/04/2023 11:39 AM SHIPPING CHECKER Influenza, adult 04/04/2023 04/04/2023 04/11/2023 9:41 AM SHIPPING CHECKER documented as of this encounter Care Teams Pack Operator Relationship Specialty Start Date End Date Sridhar Britt MD PCP - General 04/08/18 Dianne Fontana RN [address] [facility] [address] [place] [id number] [facility] Outpatient Information Technology Instructor 04/18/23 05/08/23 documented as of this encounter
--- OUTSIDE RECORDS SUMMARY | 2024-05-31 18:51 | XMS_ITS | Encounter Summary ---
Author Organization [facility] Address [address] [facility] [place] [address] Care Team Providers Care Mails Supervisor Name Role Phone Sridhar Britt MD Primary Care Provider Rudolph Alvares MD Unavailable [phone] Encounter Details Date Type Department Care Team (Late st Contact Info) Description 10/06/2021 Lab Requisition [facility] Care DermPath Lab [address] [facility] [place] [id number] William Mitchell MD [address] [place] [address] Social History Tobacco Use Types Packs/Day Years Used Date Smoking Tobacco: Never Smokeless Tobacco: Never Alcohol Use Standard Drinks/Week Comments Yes 0 (1 standard drink = 0.6 oz pur e alcohol) 0-1 on holidays Comments No Sex and Gender Information Value Date Recorded Sex Assigned at Not on file Legal Sex Female 5:54 PM BRAILLE OPERATOR Gender Identity Not on file Sexual Orientation Not on file 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 DermPath Lab Received: 10/06/2021 04:37 PM Pathologist: [...] specimen consists of a shave removal measuring [id number]. Jar 0. 2 3:57 PM CDT DERMATOPATHOLOGY [...] characteristic determined by the Dermatopathology Laboratory at [facility], directed by Dr. Andrew Seo. These tests need not be, and therefore are not, approved by the [place] Food and Drug Administration. The tests are used for clinical purposes. Billing Codes Specimen Charges Stain Charges 26386 1 2 3:57 PM CDT DERMATOPATHOLOGY LABORATORY Embedded Images 2 3:57 PM CDT DERMATOPATHOLOGY LABORATORY Pathology/Cytolog y TISSUE SPECIMEN FROM SKIN / Unknown 10/06/2021 10/06/2021 4:37 PM CDT William Mitchell MD LAB - PATHOLOGY/CYTOLOGY ORDERAB LES Final Result DERMATOPATHOLOGY LABORATORY [facility] - Department of Dermatology [facility] [address] [place] [address], [address] [phone] documented in this encounter Visit Diagnoses Not on filedocumented in this encounter Care Teams Mails Supervisor Relationship Specialty Start Date End Date Sridhar Britt MD [address] [address] [address] [place] [address] PCP - General Internal Medicine 12/12/17 Rudolph Alvares MD [address] [facility] [address] [place] [address] PCP - Attributed-[employer] [place] 03/10/21 07/25/22 documented as of this encounter
--- OUTSIDE RECORDS SUMMARY | 2024-05-31 18:52 | XMS_ITS | Clinical Summary ---
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
--- OUTSIDE RECORDS SUMMARY | 2024-05-31 18:52 | XMS_ITS ---
Author Organization [employer] [place] ([address]) Address [address] [place] [address] Care Team Providers Care Tunnel Heading Supervisor Name Role Phone Sridhar Britt MD Primary Care Provider Dr. Jose Armstrong [facility] [phone] Allergies Allergen (clinical drug ingredient) Drug/Non Drug [...] 08/18/2023 Encounters Encounter Location Date Provider Diagnosis [facility] [place] [address] [place] [address] 08/18/2023 Jose Forman Epilepsy, unspecified, intractable, without [...] Notes * Maurice HOUSTONeeDOB:1975 (47 yo F)Acc No.[id number]:08/18/2023 Progress Notes Patient: Sejal DE LOS SANTOS Provider: Shawna Forman MD :1975 A ge:47 Y S ex:Female Date:08/18/2023 Address:[address] [place], [place] [id number] Pcp:Sridhar Britt MD Subjective: * Chief Complaints: [...] reconciled with the patient * Allergies: A ann-mariexibradly: allen[Allergies Verified] Objective: * Vitals: B P:109/75mm [...] Management) * Billing Information: * Visit Code: 42914 Office Visit, Est Pt., Level 4. Modifiers: 25 * Procedure Codes: G8427 DOC MEDS VERIFIED W/PT OR RE. * Sign off status: Completed true * Provider: Shawna Froman MD Date: 0 08/18/2023 Generated for Pabloi oliver/Jazmín/Roycesmitting on: 0 05/31/2024 06:51 PM CDT History [...]
--- OUTSIDE RECORDS SUMMARY | 2024-05-31 18:52 | XMS_ITS | Clinical Summary ---
Author Organization [employer] [address] Address [address] [place] [address] Care Team Providers Care Nuclear Control Room Operator Name Role Phone Unavailable Primary Care Provider Unavailabl e Allergies Active Allergy Reactions Criticality Noted Date Comments Penicillins Hives High 04/02/2024 Medications spironolact/hydr ochlorothiazid (SPIRONOLACTON-H YDROCHLOROTHIAZ ORAL) Active brivaracetam (BRIVIACT) 50 mg tabletIndication s:Nonintractable epilepsy without status epilepticus, unspecified epilepsy type (CMS/HCC) Take 1 Tablet (50 mg) by mouth 2 times daily. 60 Tablet 5 04/02/2024 Active lamoTRIgine (LaMICtal) 100 mg tabletIndication s:Nonintractable epilepsy without status epilepticus, unspecified epilepsy type (CMS/HCC) 0.5 pills in am and 1.5 pills in pm. 60 Tablet 5 04/02/2024 Active Active Problems Problem Noted Date Diagnosed Date Epilepsy 04/02/2024 Epileptic seizure 01/24/2023 Unspecified convulsions 01/24/2023 Other cardiomyopathies 01/24/2023 Ventricular fibrillation 01/24/2023 Dizziness 09/29/2017 Encounters Date Type Department Care Team Description 05/22/2024 External Device Data [facility] ABSTRACTION Provider, Abstract 05/22/2024 External Device Data [facility] ABSTRACTION Provider, Abstract 04/25/2024 External Device Data [facility] ABSTRACTION Provider, Abstract 04/17/2024 External Device Data [facility] ABSTRACTION Provider, Abstract 04/17/2024 External Device Data [facility] ABSTRACTION Provider, Abstract 04/14/2024 External Device Data [facility] ABSTRACTION Provider, Abstract 04/13/2024 External Device Data [facility] ABSTRACTION Provider, Abstract 04/11/2024 External Device Data [facility] ABSTRACTION Provider, Abstract 04/03/2024 External Device Data [facility] ABSTRACTION Provider, Abstract 04/03/2024 External Device Data [facility] ABSTRACTION Provider, Abstract 04/03/2024 External Device Data ST[facility] ABSTRACTION Provider, Abstract 04/02/2024 10:00 AM DIRECTOR VOICE Office Visit [facility] [address] [facility] [address] [place] [phone] Jose Forman MD Nonintractable epilepsy without status epilepticus, unspecified epilepsy type (CMS/HCC) (Primary Dx); Complaints of memory disturbance 03/31/2024 Mobile Encounter [facility] [address] [facility] [address] [facility] [address] [place] [address] Maribell Brar MD from Last 3 Months Family History Medical History Relation Name Comments Heart Disease Father Steve Jackson Jr from h eart attack June 2020 Obesity Father Steve Jackson Jr Heart Disease Maternal Grandfather Bobo Loyd d of heart attack July 2020 Stroke Paternal Grandfather Steve Jackson Sr from stroke 2007 Anxiety Sister 1 Daughter - Shadia [place] Seizure Disorder Sister 2 Cousin-Nina Montes Relation Name Status Comments Father Steve Jackson Jr Alive Maternal Grandfather Bobo Loyd Alive Paternal Grandfather Steve Jackson Sr Alive Sister 1 Daughter - Shadia Houston Alive Sister 2 Cousin-Nina Montes Alive Social History Tobacco Use Types Packs/Day Years Used Date Smoking Tobacco: Never Tobacco Cessation:Counseling Given: Not Answered Alcohol Use Standard Drinks/Week Comments Never 0 (1 standard drink = 0.6 oz pur e alcohol) Comments Unknown Sex and Gender Information Value Date Recorded Sex Assigned at Female 01/27/2024 8:02 PM DIRECTOR VOICE Legal Sex Female 2:32 PM DIRECTOR VOICE Gender Identity Female 01/27/2024 8:02 PM DIRECTOR VOICE Sexual Orientation Straight 01/27/2024 8: 02 PM DIRECTOR VOICE Last Filed Vital Signs Vital Sign Reading Time Taken Comments Blood Pressure 104/77 04/02/2024 10:11 AM DIRECTOR VOICE Pulse 86 04/02/2024 10:11 AM DIRECTOR VOICE Temperature - - Respiratory Rate - - Oxygen Saturation 98% 04/02/2024 10:11 AM DIRECTOR VOICE Inhaled Oxygen Concentration - - Weight 59.4 kg (131 lb) 04/02/2024 10:11 AM DIRECTOR VOICE Height 160 cm (5' 3 ) 04/02/2024 10:11 AM DIRECTOR VOICE Body Mass Index 23.21 04/02/2024 10:11 AM DIRECTOR VOICE Plan of Treatment Upcoming Encounters Date Type Department Care Team (Late st Contact Info) Description 10/01/2024 8:00 AM CDT [facility] Visit [facility] [address] [facility] [address] [place] [address] [place] [address] [facility] [address] [place] [address] Health Maintenance Due Date Last Done Comments DTAP/TDAP/TD VACCINES (1 - Tdap) 10/19/1994 HEPATITIS B VACCINES (1 of 3 - 19+ 3-dose series) 10/08 HPV/Cotest (21-29) 10/19/1996 CERVICAL CANCER SCREENING 10/19/2005 HPV/Cotest (30-65) 10/19/2005 PAP SMEAR 10/19/2005 BREAST CANCER SCREENING 2015 COLORECTAL SCREENING 10/19/2020 Colorectal Cancer Screening 10/19/2020 FIT-DNA Q 3 years 10/19/2020 FIT/FOBT Q 1 year 10/19/2020 Flex Sig/CT Colonography Q 5 years 10/19/2020 INFLUENZA VACCINE (#1) 2023 Insurance [facility]UE ACCESS CHOICE [facility]
[2024-05-31 19:09] VITALS: BP 100/63; PULSE 70; RESP 15; TEMP 36.3; O2SAT 100
--- NOTE | 2024-05-31 20:02 | ED.GENADULT ---
HPI - General Adult General Chief complaint: Extremity Injury, Upper Stated complaint: Injury right thumb Time Seen by Provider: 05/31/24 19:16 History of Present Illness HPI narrative: This is a 48-year-old female presenting with right thumb pain. She tripped over her 14-year-old daughters backpack and jammed her right thumb. She put in a brace at home. She then came to ED to make sure was not broken. No functional deficits. No loss of sensation. No other injuries. Related Data Home Medications ?Medication ?Instructions ?Recorded ?Confirmed ?Last Taken ?Type lamotrigine 100 mg tablet 03/22/19 Unknown History lamotrigine 150 mg tablet 03/22/19 Unknown History Allergies Allergy/AdvReac Type Severity Reaction Status Date / Time Penicillins Allergy Unknown Hives Verified 05/31/24 18:48 [facility] Past Medical History Medical History depression Epilepsy Surgical History Surgical History Hx of appendectomy Social History Social History Smoking status: Never smoker Gender identity (if verbalized by the patient): Female Exam Narrative: APPEARANCE: No apparent distress. Head: atraumatic. EYES: EOMI, NOSE: Atraumatic NECK: Trachea midline RESPIRATORY: No increased rate of breathing CARDIOVASCULAR: RRR, ABDOMINAL: Non-distended MUSCULOSKELETAl: Focal exam of the thumb showed no bruising deformity. Flexion-extension intact. Cap refill less than 2 seconds. No nailbed hematoma SKIN:: Warm, dry. Normal color PSYCHIATRIC: Normal affect Course Vital Signs Vital signs: Vital Signs Temperature 97.3 F L 05/31/24 19:09 Pulse Rate 70 05/31/24 19:09 Respiratory Rate 15 05/31/24 19:09 Blood Pressure 100/63 05/31/24 19:09 Pulse Oximetry 100 05/31/24 19:09 Oxygen Delivery Room Air 05/31/24 19:09 Temperature 97.3 F L 05/31/24 19:09 Pulse Rate 70 05/31/24 19:09 Respiratory Rate 15 05/31/24 19:09 Blood Pressure 100/63 05/31/24 19:09 Pulse Oximetry 100 05/31/24 19:09 Oxygen Delivery Room Air 05/31/24 19:09 Medical Decision Making MDM Narrative Medical decision making narrative: -Course: 48-year-old female presenting after a fall with some pain. X-rays negative for fracture patient be discharged primary care follow-up. Return precautions given -DDX includes but is not limited to: -Co-morbidities complicating care: -Social determinants of health: -External Chart Review: -Hx from independent Sources: -Independent interpretation of studies: -Discussion of Management/Consultants: -Dx tests considered but not ordered: -Procedures: -Interventions: -Shared decision making / Disposition: -RX Vital Signs Vital Signs: Vital Signs Temperature 97.3 F L 05/31/24 19:09 Pulse Rate 70 05/31/24 19:09 Respiratory Rate 15 05/31/24 19:09 Blood Pressure 100/63 05/31/24 19:09 Pulse Oximetry 100 05/31/24 19:09 Oxygen Delivery Room Air 05/31/24 19:09 Temperature 97.3 F L 05/31/24 19:09 Pulse Rate 70 05/31/24 19:09 Respiratory Rate 15 05/31/24 19:09 Blood Pressure 100/63 05/31/24 19:09 Pulse Oximetry 100 05/31/24 19:09 Oxygen Delivery Room Air 05/31/24 19:09 Discharge Plan Discharge Clinical Impression: Finger sprain Patient Disposition: Home Condition: Stable Instructions: Antibiotic Form, Finger Sprain (ED) Additional Instructions: Please use Motrin as Tylenol as needed for pain. Please follow-up your primary care physician as needed. If you develop severe pain or any new or worsening symptoms return to the ED for re-evaluation. Patient Language: Italian Prescriptions: No Action silver sulfadiazine 1 % cream 1 applic topical BID Qty: 20 0RF Rx Instructions: apply a 1.5 mm thickness lamotrigine 150 mg tablet lamotrigine 100 mg tablet famotidine [Pepcid] 20 mg tablet 20 mg PO BID 15 Days Qty: 30 0RF dicyclomine 10 mg capsule 10 mg PO BID 5 Days Qty: 10 0RF Briviact 50 mg tablet 50 mg PO BID 10 Days Qty: 20 0RF Follow-up/Referrals: Balwinder,Sridhar Medina MD [Primary Care Provider] -
[2024-05-31] MEDS: IBUPROFEN 400 MG TABLET 800 MG PO (20:14)
[2024-05-31] MEDS: ACETAMINOPHEN 500 MG TABLET 1000 MG PO (20:14)
--- OUTSIDE RECORDS SUMMARY | 2024-05-31 21:20 | XMS_ITS | Referral Summary ---
Author Organization [facility] Address [facility] [place] [address] Care Team Providers Care Vice President Talent Management Name Role Phone Sridhar Britt MD Primary [...] 12/16/2020 Assessment & Plan (12/16/2020 9:36 AM TEXTILE COLORIST DYER): Patient describes episodic headaches typically brought on by emotional stressors with historical characteristics consistent with muscle contraction type headache. She enjoys a normal neurological examination at this time. I would recommend uqyx-smd-gggvlab anti-inflammatories on an as-needed basis if the headaches do recur. Generalized idiopathic epile psy and epileptic syndromes, not intractable, without status epilepticus 11/01/2019 Assessment & Plan (12/16/2020 9:35 AM TEXTILE COLORIST DYER): Patient continues on lamotrigine 100 mg b.i.d. with good tolerability and no seizures reported over the past year. I have reviewed teratogenicity and suggested use of an rxcd-fnk-ruhqhuz multivitamin with folic acid an effort to [...] drink = 0.6 oz pur e alcohol) [facility] Utilities Answer Date Recorded In the past 12 months has [employer], gas, oil, or water company threatened to [...] often do you attend chur ch or restorationism services? Patient declined 04/18/2023 Do you belong to any clubs o r organizations such as anabaptism groups, unions, fraternal or athletic groups, or [...] place to sleep or slept in a prison (including now)? No 04/18/2023 Personal Safety Answer Date Recorded Have you ever been in or are you currently in a harmful physical or emotional relationship or is someone making you feel afraid or unsafe? Denies 09/08/2023 Comments No Sex and Gender Information Value Date Recorded Sex Assigned at Not on file Legal Sex Female 4:51 AM TEXTILE COLORIST DYER Gender Identity Not on file Sexual Orientation [...] on file Medical Devices Implanted Type Area Register Of Wills Device Identifier Shelf Expiration Date Model / Serial / Lot [employer] C.R.M. Harmony Mri S-Icd 83.1x69.1mm Pulse Generator Battery Subcutaneous A219 - [id number] - [id number] Implanted:Qty: 1 on 04/14/2023 by Francisco Javier Narayanan MD at [facility] ICD [employer] C.R.M. 02/20/2025 A219 / [id number] / [employer] Gin Emble S-Icd Subcutaneous Electrode Defibrillator 3501 - [id number] - [id number] Implanted:Qty: 1 on 04/14/2023 by Francisco Javier Narayanan MD at [facility] Subcutaneous Defibrillator Electrode [employer] Gin 02/15/2025 3501 / [id number] / Insurance [facility] ANTHEM ACCESS CHOICE ANTHEM ACCESS CHOICE Advance Directives For more information, please contact: [phone] * Full Code (Latest Code Status on File) Date Activated Date Inactivated Comments 04/04/2023 6:53 AM 04/16/2023 3:35 PM * Full Code Date Activated Date Inactivated Comments 12/16/2022 3:10 PM 12/17/2022 10:36 PM Care Teams Vice President Talent Management Relationship Specialty Start Date End Date Sridhar Britt MD PCP - General 04/08/18
--- OUTSIDE RECORDS SUMMARY | 2024-05-31 21:20 | XMS_ITS | Clinical Summary ---
Author Organization [facility] Address [address] [place] [address] Care Team Providers Care Mine Foreman Name Role Phone Sridhar Britt MD Primary Care Provider Source Comments [facility],non-owned Affiliates and Associated Physician Practices is amultiple site organization consisting of ambulatory clinics and hospital sitesin [place], [place], [place] and [place]. This disclosure is being madepursuant to the Care Everywhere program and may not contain all information available regarding this patient. Last updated 17.[facility] Allergies Active Allergy Reactions Criticality [...] at 53, RSR in V1/V2, ERWP, intervals [phone] 12/25 Event recorder: Chest pain , shortness [...] on file Legal Sex Female 5:54 PM PUMP INSTALLER Gender Identity Not on file Sexual Orientation [...] patient's age to complete this topic Insurance [facility] Care Teams Mine Foreman Relationship Specialty Start Date End Date Sridhar Britt MD [address] [place] [address] [address] [place] [address] PCP - General Internal Medicine 12/12/17
--- OUTSIDE RECORDS SUMMARY | 2024-05-31 21:20 | XMS_ITS | Encounter Summary ---
Author Organization [facility] Address [address] [place] [address] Care Team Providers Care Casing Tier Name Role Phone Sridhar Britt MD Primary Care Provider Dianne Fontana RN Unavailable [phone] Encounter Details Date Type Department Care Team (Late st Contact Info) Description 12/16/2022 Orders Only [facility] Cardiac Catheterization Lab [address] [place] [address] Amador Hong MD [address] [place] [address] Cardiac arrest (HCC) (Primary Dx) Social History Tobacco Use Types Packs/Day Years Used Date Smoking Tobacco: Never Smokeless Tobacco: Never Alcohol Use Standard Drinks/Week Comments Defer 0 (1 standard drink = 0.6 oz pur e alcohol) [facility] Utilities Answer Date Recorded In the past 12 months has [employer], gas, oil, or water frintit threatened to shut off services in your [...] week 12/17/2022 How often do you attend [facility] or mu-ism services? Patient declined 12/17/2022 Do you belong to any clubs o r organizations such as zoroastrianism groups, unions, fraternal or athletic groups, or [...] place to sleep or slept in a fci (including now)? No 12/17/2022 Comments Unknown Sex and Gender Information Value Date Recorded Sex Assigned at Not on file Legal Sex Female 4:51 AM FOOD SERVICES MANAGER Gender Identity Not on file Sexual Orientation [...] COVID: Suspected 04/04/2023 04/04/2023 04/04/2023 11:39 AM FOOD SERVICES MANAGER Influenza, adult 04/04/2023 04/04/2023 04/11/2023 9:41 AM FOOD SERVICES MANAGER documented as of this encounter Care Teams Casing Tier Relationship Specialty Start Date End Date Sridhar Britt MD PCP - General 04/08/18 Dianne Fontana RN [address] [facility] [address] [place] [id number] [facility] Outpatient Home Care Liaison 04/18/23 05/08/23 documented as of this encounter
--- OUTSIDE RECORDS SUMMARY | 2024-05-31 21:20 | XMS_ITS | CONTINUITY OF CARE DOCUMENT ---
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
--- OUTSIDE RECORDS SUMMARY | 2024-05-31 21:20 | XMS_ITS | Encounter Summary ---
Author Organization [facility] Address [address] [facility] [place] [address] Care Team Providers Care Farm Labor Contractor Name Role Phone Sridhar Britt MD Primary Care Provider Rudolph Alvares MD Unavailable [phone] Encounter Details Date Type Department Care Team (Late st Contact Info) Description 10/06/2021 Lab Requisition [facility] Care DermPath Lab [address] [place] [id number] William Mitchell MD [address] [place] [address] Social History Tobacco Use Types Packs/Day Years Used Date Smoking Tobacco: Never Smokeless Tobacco: Never Alcohol Use Standard Drinks/Week Comments Yes 0 (1 standard drink = 0.6 oz pur e alcohol) 0-1 on holidays Comments No Sex and Gender Information Value Date Recorded Sex Assigned at Not on file Legal Sex Female 5:54 PM SITE PLANNER Gender Identity Not on file Sexual Orientation [...] AM CDT) Case Report Dermatopathology Report Case: [id number] Authorizing Provider: William Mitchell MD Collected: 10/06/2021 12:00 AM Ordering Location: [facility] Derm[facility] Lab Received: 10/06/2021 04:37 PM Pathologist: [...] specimen consists of a shave removal measuring [id number]. Jar 0. 2 3:57 PM CDT DERMATOPATHOLOGY [...] characteristic determined by the Dermatopathology Laboratory at [facility], directed by Dr. Andrew Seo. These tests need not be, and therefore are not, approved by the [place] Food and Drug Administration. The tests are used for clinical purposes. Billing Codes Specimen Charges Stain Charges 10166 1 2 3:57 PM CDT DERMATOPATHOLOGY LABORATORY Embedded Images 2 3:57 PM CDT DERMATOPATHOLOGY LABORATORY Pathology/Cytolog y TISSUE SPECIMEN FROM SKIN / Unknown 10/06/2021 10/06/2021 4:37 PM CDT William Mitchell MD LAB - PATHOLOGY/CYTOLOGY ORDERAB LES Final Result DERMATOPATHOLOGY LABORATORY [facility] - Department of Dermatology [facility] Medicine [address] [place] [address], [address] [phone] documented in this encounter Visit Diagnoses Not on filedocumented in this encounter Care Teams Farm Labor Contractor Relationship Specialty Start Date End Date Sridhar Britt MD [address] [address] [address] [place] [address] PCP - General Internal Medicine 12/12/17 Rudolph Alvares MD [address] [facility] [address] [place] [address] PCP - Attributed-[employer] [place] 03/10/21 07/25/22 documented as of this encounter
--- OUTSIDE RECORDS SUMMARY | 2024-05-31 21:20 | XMS_ITS | Clinical Summary ---
Author Organization [facility] Address [facility] [place] [address] Care Team Providers Care Ventilation Equipment Tender Name Role Phone Sridhar Britt MD Primary [...] 12/16/2020 Assessment & Plan (12/16/2020 9:36 AM FIBERGLASS MACHINE OPERATOR): Patient describes episodic headaches typically brought on by emotional stressors with historical characteristics consistent with muscle contraction type headache. She enjoys a normal neurological examination at this time. I would recommend xvja-lss-bcqtdgh anti-inflammatories on an as-needed basis if the headaches do recur. Generalized idiopathic epile psy and epileptic syndromes, not intractable, without status epilepticus 11/01/2019 Assessment & Plan (12/16/2020 9:35 AM FIBERGLASS MACHINE OPERATOR): Patient continues on lamotrigine 100 mg b.i.d. with good tolerability and no seizures reported over the past year. I have reviewed teratogenicity and suggested use of an uyvx-ixa-cclskpl multivitamin with folic acid an effort to [...] year. Surgical History Surgery Date Site/Laterality Comments [place] APPENDECTOMY 02/08/1996 - 02/06/1997 Appendectomy - (Added [...] drink = 0.6 oz pur e alcohol) [facility] Utilities Answer Date Recorded In the past 12 months has e [employer], oil, or [employer] threatened to shut off services in your [...] any clubs o r organizations such as religion groups, unions, fraternal or athletic groups, or [...] place to sleep or slept in a custodial (including now)? No 04/18/2023 Personal Safety Answer Date Recorded Have you ever been in or are you currently in a harmful physical or emotional relationship or is someone making you feel afraid or unsafe? Denies 09/08/2023 Comments No Sex and Gender Information Value Date Recorded Sex Assigned at Not on file Legal Sex Female 4:51 AM FIBERGLASS MACHINE OPERATOR Gender Identity Not on file Sexual [...] 01/26/2024, 11/20/2018 Medical Devices Implanted Type Area Manager Icu Device Identifier Shelf Expiration Date Model / Serial / Lot [employer] C.R.M. [facility] S-Icd 83.1x69.1mm Pulse Generator Battery Subcutaneous A219 - [id number] - [id number] Implanted:Qty: 1 on 04/14/2023 by Francisco Javier Narayanan MD at [facility] ICD [employer] C.R.M. 02/20/2025 A219 / [id number] / [employer] Gin Emblem S-Icd Subcutaneous Electrode Defibrillator 3501 - [id number] - [id number] Implanted:Qty: 1 on 04/14/2023 by Francisco Javier Narayanan MD at [facility] Subcutaneous Defibrillator Electrode [employer] Gin 02/15/2025 3501 / [id number] / Insurance [id number] [place] [address] [facility] CHOICE ANTHEM ACCESS CHOICE Advance Directives For more information, please contact: [phone] * Full Code (Latest Code Status on File) Date Activated Date Inactivated Comments 04/04/2023 6:53 AM 04/16/2023 3:35 PM * Full Code Date Activated Date Inactivated Comments 12/16/2022 3:10 PM 12/17/2022 10:36 PM Care Teams Ventilation Equipment Tender Relationship Specialty Start Date End Date Sridhar Britt MD PCP - General 04/08/18
--- OUTSIDE RECORDS SUMMARY | 2024-05-31 21:21 | XMS_ITS | Clinical Summary ---
Author Organization [employer] [address] Address [address] [place] [address] Care Team Providers Care Child Care Attendant Name Role Phone Unavailable Primary Care Provider [...] STL ABSTRACTION Provider, Abstract 04/02/2024 10:00 AM SEAL DELIVERY VEHICLE OFFICER Office Visit [facility] Neurology [facility] [address] [facility] [place] [address] [place] [id number] Jose Forman MD Nonintractable epilepsy without status epilepticus, unspecified epilepsy type (CMS/HCC) (Primary Dx); Complaints of memory disturbance 03/31/2024 Mobile Encounter [facility] Neurology [address] [facility] [address] [address] [facility] [address] [place] [address] Maribell Brar MD from Last [...] Sex Assigned at Female 01/27/2024 8:02 PM SEAL DELIVERY VEHICLE OFFICER Legal Sex Female 2:32 PM SEAL DELIVERY VEHICLE OFFICER Gender Identity Female 01/27/2024 8:02 PM SEAL DELIVERY VEHICLE OFFICER Sexual Orientation Straight 01/27/2024 8: 02 PM SEAL DELIVERY VEHICLE OFFICER Last Filed Vital Signs Vital Sign Reading Time Taken Comments Blood Pressure 104/77 04/02/2024 10:11 AM SEAL DELIVERY VEHICLE OFFICER Pulse 86 04/02/2024 10:11 AM SEAL DELIVERY VEHICLE OFFICER Temperature - - Respiratory Rate - - Oxygen Saturation 98% 04/02/2024 10:11 AM SEAL DELIVERY VEHICLE OFFICER Inhaled Oxygen Concentration - - Weight 59.4 kg (131 lb) 04/02/2024 10:11 AM SEAL DELIVERY VEHICLE OFFICER Height 160 cm (5' 3 ) 04/02/2024 10:11 AM SEAL DELIVERY VEHICLE OFFICER Body Mass Index 23.21 04/02/2024 10:11 AM SEAL DELIVERY VEHICLE OFFICER Plan of Treatment Upcoming Encounters Date Type Department Care Team (Late st Contact Info) Description 10/01/2024 8:00 AM CDT Office Visit [facility] Neurology [facility] [address] [facility] [address] [place] [address] [place] [address] [facility] [address] [place] [address] Health Maintenance Due Date Last [...] VACCINE (#1) 2023 Insurance BLUE ACCESS CHOICE [facility]
--- OUTSIDE RECORDS SUMMARY | 2024-05-31 21:21 | XMS_ITS | Clinical Summary ---
Author Organization [facility] Care Team Providers Care Customer Account Coordinator Name Role Phone Unavailable Primary Care Provider Unavailabl e Social History Tobacco Use Types Packs/Day Years Used Date Smoking Tobacco: Never Assessed Comments Unknown Sex and Gender Information Value Date Recorded Sex Assigned at Not on file Legal Sex Female 12:58 PM SPORTS MANAGEMENT INTERNSHIP Gender Identity Not on file Sexual Orientation [...]
== END 2024-05-31 22:45 | disposition home or self-care (01) ==
LOC: ANHED 21:18
PROVIDERS: Emergency Provider Emergency Medicine; PCP Internal Medicine
DX: S63.601A Unspecified sprain of right thumb, initial encounter (principal); W22.8XXA Striking against or struck by other objects, initial encounter; G40.909 Epilepsy, unspecified, not intractable, without status epilepticus
CPT/HCPCS: 73130; 99283; A9270

== ENCOUNTER 2024-11-27 19:57 | Emergency (ER) | payer BC, SELFPAY ==
--- OUTSIDE RECORDS SUMMARY | 2023-07-23 16:30 | XMS_ITS ---
Author Organization [facility] [employer] [place] ([address]) Address [address] [place] [address] Care Team Providers Care Vascular Sonographer Name Role Phone Sridhar Britt MD Primary Care Provider Dr. Jose Armstrong Unavailable [phone] [facility], Provider Unavailable Unavailab le Allergies Allergen (clinical drug ingredient) Drug/Non Drug Allergy documented on EMR Reaction Allergy Type Onset Date Status amoxicillin Amoxicillin rash Drug Allergy Act tiana REASON FOR VISIT [facility] Conversion Encounter Medications Medication SIG (Take, Route, Frequency, Duration) Notes Start Date End Date Status Amiodarone HCl 400 MG 1 tab(s) orally on ce a day Not-Taking Metoprolol Succinate ER 25 MG 1 tab(s) orally once a day Not-Taking LaMICtal 25 MG 5 tab(s) orally 2 ti mes a day Active lamoTRIgine 100 MG 1 tab(s) orally 2 ti mes a day Active Briviact 100 MG 1/2 orally 2 times a day; Duration: 30 days 03/10/2023 Active Encounters Encounter Location Date Provider Diagnosis [address] [address] 07/23/2023 Provider [facility] Plan Of Treatment No Information Progress Notes * Maurice HOUSTONeeDOB:1975 (49 yo F)Acc No.[id number]:07/23/2023 Patient: Sejal DE LOS SANTOS Provider: Rebekah barnett Migration :1975 A ge:47 Y S ex:Female Date:07/23/2023 Address:[address] [place], [place] [id number] Pcp:Sridhar Britt MD Subjective: * Chief Complaints: * 1 . [facility] Conversion Encounter. * Medical History: * Medications: T aking LaMICtal 25 MG Tablet 5 tab(s) orally 2 times a day , Taking lamoTRIgine 100 MG Tablet 1 tab(s) orally 2 times a day , Taking Briviact 100 MG Tablet 1/2 orally 2 times a day , Not-Taking/PRN Amiodarone HCl 400 MG Tablet 1 tab(s) orally once a day , Not-Taking/PRN Metoprolol Succinate ER 25 MG Tablet Extended Release 24 Hour 1 tab(s) orally once a day * Allergies: A moxicillin: rash. Objective: * Vitals: Assessment: Plan: * Treatment: * Billing Information: * Visit Code: * Procedure Codes: * Electronic signature of Zack CHOPRA-Migration on 11/27/2024 at 08:14 PM CDT Sign off status: Pending * Provider: Rebekah barnett Migration Date: 0 07/23/2023 Generated for Apollo boyd/Jazmín/Donna on: 1 08:14 PM CDT
--- NOTE | ~2024-11-27 | XR_ITS ---
XR ankle LT min 3V INDICATION: rolled ankle walking off a curb . COMPARISON: None. FINDINGS: Frontal, lateral and oblique views of the left ankle demonstrate no acute fracture or dislocation. The ankle mortise is intact. IMPRESSION: No acute fracture or dislocation. Reviewed, dictated and finalized at location S.
[2024-11-27 20:00] VITALS: BP 106/65; PULSE 75; RESP 14; TEMP 36.6; O2SAT 100
--- OUTSIDE RECORDS SUMMARY | 2024-11-27 20:13 | XMS_ITS | Data Portability ---
Author Organization [facility] [place], Main Office Address [address] [place] [address] Assessment No assessment recorded. Plan of Treatment Reminders Order Date Submit Date Provider Last Modified By Organization Details Last Modified Time Details Appointments None recorded . Lab CBC w/ auto diff 024 01/26/[address] [facility], [address] [place], [address], 4 12:35:29 CMP, serum or plasma 024 01/26/[address] [facility], [address] [place], [address], 4 12:36:56 lipid panel, serum 024 01/26/[address] [facility], [address] [place], [address], 4 12:40:10 lipid panel, serum 023 02/04/[id number] [facility], [address] [place], [address], 4 13:12:19 CMP, serum or plasma 023 02/04/[id number] [facility], [address] [place], [address], 4 13:12:20 CRP, high sensitiv ity, serum or plasma 023 02/04/[email or web address] [facility], [address] [place], [address], 13:12:20 Referral None recorded . Procedures None recorded . Surgeries None recorded . Imaging None recorded . Medication Orders None recorded . Patient TargetsNo targets recorded. Patient Instructions Encounter Date Encounter Id Patient Instructions Last Modified By Organization Details Last Modified Time 02/03/2023 [id number] Follow up cardia c arrest and seizure [...] recognize, using context, where substitutions have occurred. [email or web address] Not available 02/03/2023 11:28:35 05/26/2023 [id number] Seizure disorder , ventricular fibrillation. Plan is to continue on current Rx. Will get copies the most recent diagnostic studies performed at [facility] as well as history Religion and Orthodox. New on current Rx in the interim. Follow-up in four months pending those results Get copies of any cardiac evaluation including echocardiogram as well as Holter monitors etc. from [facility] or more back where she had the cardiac catheterization performed. Next Appointment: 4 Months Approximate Date: 09/23/2023 Portions of the record may have been created with voice recognition software. Occasional wrong-word or s ound-a-like substitutions may have occurred due to the inherent limitations of voice recognition software. Read the chart carefully and recognize, using context, where substitutions have occurred. [email or web address] Not available 05/26/2023 12:21:09 01/26/2024 [id number] risk assessment* [email or web address] Not availabl e 01/26/2024 10:56:52 INFLUENZA VACCIN E Recommended today, but patient declined TD/TDAP Patient will get at local pharmacy/health department PNEUMONIA VACCINE Recommended at age 65 SHINGLES Not indicated MAMMOGRAM: Last Mammogram Recommended today DEXA SCAN No screening indicated CERVICAL SCREENING/PELVIC EXAMINATION No screening necessary patient is up to date COLORECTAL SCREENING: Last Colonoscopy No screening necessary patient is up to date DEPRESSION SCREENING Negative BMI Appropriate NUTRITION Eat Heart Healthy Diet PHYSICAL ACTIVITY Need more exercise/physical activity VISION Recommended today ALCOHOL USE Occasional/Social Use TOBACCO USE non smoker LUNG CANCER SCREENING Non Smoker-not indicated SEXUALLY ACTIVE HEPATITIS C SCREENING Not indicated GLUCOSE SCREENING recommended LIPID SCREENING recommended [email or web address] Not available 01/26/2024 10:45:28 Adult health examination [...] of most recent echocardiogram done by her him analyst 3. Try to get a copy of [...] Created: Sridhar Britt M.D. 01.26.2024 09:56 AM [email or web address] Not available 01/26/2024 10:56:38 Reason for Referral [...] provi ders and patie nts at the [facility] donny: https ://ww [employer] .gov/ media /1363 12/do wnloa d https ://[employer] .gov/ media /1363 13/do wnloa d Metho dolog y: Real- Time RT-PC R Not Available [facility] (Lab) [address] [place], [address], 01/19/2023 14:22:51 03/31/19 24 03/31/2023 COVID -19, [...] provi ders and patie nts at the [facility] donny: https ://ww [employer] .gov/ media /1363 12/do wnloa d https ://[employer] .gov/ media /1363 13/do wnloa d Metho dolog y: Real- Time RT-PC R Not Available [facility] (Lab) [address] [place], [address], 03/31/2023 14:12:38 03/31/19 24 03/31/2023 COVID -19, INFLU TUNG A+B, PCR influenza A RNA, RT-PCR POSITI VE abnormal Not Available [facility] (Lab) [address] [place], [address], 03/31/2023 14:12:38 03/31/19 24 03/31/2023 COVID -19, INFLU TUNG A+B, PCR influenza B RNA, RT-PCR NEGATI VE abnormal Not Available [facility] (Lab) [address] [place], [address], 03/31/2023 14:12:38 01/26/20 24 01/27/2024 LIPID PANEL , STAND DEVIKA cholesterol, total 210 mg/dL <200 high Not Available [address], [address], 01/27/2024 11:18:41 01/26/20 24 01/27/2024 LIPID PANEL , STAND DEVIKA HDL cholesterol 63 mg/dL > or = 50 normal Not Available [address], [address], 01/27/2024 11:18:41 01/26/20 24 01/27/2024 LIPID PANEL , STAND DEVIKA triglyceride s 59 mg/dL <150 normal Not Available [address], [address], 01/27/2024 11:18:41 01/26/20 24 01/27/2024 LIPID PANEL [...] calcu lated using the Tanika n-Hop kins calcu latprakash n, which is a valid ated novel metho d provi ding vicky r accur acy than the Fried marino equat ion in the estim ation of LDL-C . Tanika felix SS et al. JOSH. 2013; 310(1 9): 2061- 2068 (http ://ed ucati on.Nelda perkins [employer]. com/f aq/FA Q164) Not Available [address], [address], 01/27/2024 11:18:41 01/26/20 24 01/27/2024 LIPID PANEL , STAND DEVIKA chol/HDLC ratio 3.3 (calc ) <5.0 normal Not Available [address], [address], 01/27/2024 11:18:41 01/26/20 24 01/27/2024 LIPID PANEL , STAND DEVIKA non HDL cholesterol 147 mg/dL _(jennifer c) <130 high For patie nts with diabe donny plus 1 major ASCVD risk facto r, treat ing to a non-H DL-C goal of <100 mg/dL (LDL- C of <70 mg/dL ) is consi dered a thera peuti c optio n. Not Available [address], [address], 01/27/2024 11:18:41 01/26/20 24 01/27/2024 COMPR EHENS ELIEZER METAB OLIC PANEL glucose 82 mg/dL 65-99 normal Fasti ng refer ence inter alexandra Not Available [address], [address], 01/27/2024 11:18:43 01/26/20 24 01/27/2024 COMPR EHENS ELIEZER METAB OLIC PANEL urea nitrogen (BUN) 14 mg/dL 7-25 normal Not Available [address], [address], 01/27/2024 11:18:43 01/26/20 24 01/27/2024 COMPR EHENS ELIEZER METAB OLIC PANEL creatinine 1.33 mg/dL 0.50-0 .99 high Not Available [address], [address], 01/27/2024 11:18:43 01/26/20 24 01/27/2024 COMPR EHENS ELIEZER METAB OLIC PANEL eGFR 49 mL/mi n/1.7 3m2 > or = 60 low Not Available [address], [address], 01/27/2024 11:18:43 01/26/20 24 01/27/2024 COMPR EHENS ELIEZER METAB OLIC PANEL BUN/creatini ne ratio 11 (calc ) 6-22 normal Not Available [address], [address], 01/27/2024 11:18:43 01/26/20 24 01/27/2024 COMPR EHENS ELIEZER METAB OLIC PANEL sodium 142 mmol/ L 135-14 6 normal Not Available [address], [address], 01/27/2024 11:18:43 01/26/20 24 01/27/2024 COMPR EHENS ELIEZER METAB OLIC PANEL potassium 5.1 mmol/ L 3.5-5. 3 normal Not Available [address], [address], 01/27/2024 11:18:43 01/26/20 24 01/27/2024 COMPR EHENS ELIEZER METAB OLIC PANEL chloride 103 mmol/ L 98-110 normal Not Available [address], [address], 01/27/2024 11:18:43 01/26/20 24 01/27/2024 COMPR EHENS ELIEZER METAB OLIC PANEL carbon dioxide 31 mmol/ L 20-32 normal Not Available [address], [address], 01/27/2024 11:18:43 01/26/20 24 01/27/2024 COMPR EHENS ELIEZER METAB OLIC PANEL calcium 10.3 mg/dL 8.6-10 .2 high Not Available [address], [address], 01/27/2024 11:18:43 01/26/20 24 01/27/2024 COMPR EHENS ELIEZER METAB OLIC PANEL protein, total 7.3 g/dL 6.1-8. 1 normal Not Available [address], [address], 01/27/2024 11:18:43 01/26/20 24 01/27/2024 COMPR EHENS ELIEZER METAB OLIC PANEL albumin 4.8 g/dL 3.6-5. 1 normal Not Available [address], [address], 01/27/2024 11:18:43 01/26/20 24 01/27/2024 COMPR EHENS ELIEZER METAB OLIC PANEL globulin 2.5 g/dL_ (calc ) 1.9-3. 7 normal Not Available [facility] [address], [address], 01/27/2024 11:18:43 01/26/20 24 01/27/2024 COMPR EHENS ELIEZER METAB OLIC PANEL albumin/glob ulin ratio 1.9 (calc ) 1.0-2. 5 normal Not Available [facility] [address], [address], 01/27/2024 11:18:43 01/26/20 24 01/27/2024 COMPR EHENS ELIEZER METAB OLIC PANEL bilirubin, total 0.5 mg/dL 0.2-1. 2 normal Not Available [facility] [address], [address], 01/27/2024 11:18:43 01/26/20 24 01/27/2024 COMPR EHENS ELIEZER METAB OLIC PANEL alkaline phosphatase 142 U/L 31-125 high Not Available [facility] [employer] [address] [place], [address], 01/27/2024 11:18:43 01/26/20 24 01/27/2024 COMPR EHENS ELIEZER METAB OLIC PANEL AST 16 U/L 10-35 normal Not Available [address], [address], 01/27/2024 11:18:43 01/26/20 24 01/27/2024 COMPR EHENS ELIEZER METAB OLIC PANEL ALT 11 U/L 6-29 normal Not Available [address], [address], 01/27/2024 11:18:43 01/26/20 24 01/27/2024 CBC (INCL UDES DIFF/ PLT) white blood cell count 6.4 thous and/u L 3.8-10 .8 normal Not Available [address], [address], 01/27/2024 11:18:44 01/26/20 24 01/27/2024 CBC (INCL UDES DIFF/ PLT) red blood cell count 4.37 sunny on/uL 3.80-5 .10 normal Not Available [address], [address], 01/27/2024 11:18:44 01/26/20 24 01/27/2024 CBC (INCL UDES DIFF/ PLT) hemoglobin 12.4 g/dL 11.7-1 5.5 normal Not Available [address], [address], 01/27/2024 11:18:44 01/26/20 24 01/27/2024 CBC (INCL UDES DIFF/ PLT) hematocrit 39.1 % 35.0-4 5.0 normal Not Available [address], [address], 01/27/2024 11:18:44 01/26/20 24 01/27/2024 CBC (INCL UDES DIFF/ PLT) MCV 89.5 fL 80.0-1 00.0 normal Not Available [address], [address], 01/27/2024 11:18:44 01/26/20 24 01/27/2024 CBC (INCL UDES DIFF/ PLT) MCH 28.4 pg 27.0-3 3.0 normal Not Available [address], [address], 01/27/2024 11:18:44 01/26/20 24 01/27/2024 CBC (INCL UDES DIFF/ PLT) MCHC 31.7 g/dL 32.0-3 6.0 low For adult s, a sligh t decre ase in the calcu lated MCHC value (in the range of 30 to 32 g/dL) is most likel y not clini timo signi monse t; isaías er, it shoul d be inter prete d with cauti on in [facility] n with other red cell ella eters and the patie nt's clini jennifer condi tion. Not Available [address], [address], 01/27/2024 11:18:44 01/26/20 24 01/27/2024 CBC (INCL UDES DIFF/ PLT) RDW 14.3 % 11.0-1 5.0 normal Not Available [address], [address], 01/27/2024 11:18:44 01/26/20 24 01/27/2024 CBC (INCL UDES DIFF/ PLT) platelet count 550 thous and/u L 140-40 0 high Not Available [address], [address], 01/27/2024 11:18:44 01/26/20 24 01/27/2024 CBC (INCL UDES DIFF/ PLT) MPV 10.5 fL 7.5-12 .5 normal Not Available [address], [address], 01/27/2024 11:18:44 01/26/20 24 01/27/2024 CBC (INCL UDES DIFF/ PLT) absolute neutrophils 3629 cells /uL 1500-7 800 normal Not Available [address], [address], 01/27/2024 11:18:44 01/26/20 24 01/27/2024 CBC (INCL UDES DIFF/ PLT) absolute lymphocytes 2253 cells /uL 850-39 00 normal Not Available [address], [address], 01/27/2024 11:18:44 01/26/20 24 01/27/2024 CBC (INCL UDES DIFF/ PLT) absolute monocytes 429 cells /uL 200-95 0 normal Not Available [address], [address], 01/27/2024 11:18:44 01/26/20 24 01/27/2024 CBC (INCL UDES DIFF/ PLT) absolute eosinophils 0 cells /uL 15-500 low Not Available [address], [address], 01/27/2024 11:18:44 01/26/20 24 01/27/2024 CBC (INCL UDES DIFF/ PLT) absolute basophils 90 cells /uL 0-200 normal Not Available [address], [address], 01/27/2024 11:18:44 01/26/20 24 01/27/2024 CBC (INCL UDES DIFF/ PLT) neutrophils 56.7 % normal Not Available [address], [address], 01/27/2024 11:18:44 01/26/20 24 01/27/2024 CBC (INCL UDES DIFF/ PLT) lymphocytes 35.2 % normal Not Available [facility] [address] [place], [address], 01/27/2024 11:18:44 01/26/20 24 01/27/2024 CBC (INCL UDES DIFF/ PLT) monocytes 6.7 % normal Not Available [facility] [place] [address] [place], [address], 01/27/2024 11:18:44 01/26/20 24 01/27/2024 CBC (INCL UDES DIFF/ PLT) eosinophils 0.0 % normal Not Available [address] [place] [address] [place], [address], 01/27/2024 11:18:44 01/26/20 24 01/27/2024 CBC (INCL UDES DIFF/ PLT) basophils 1.4 % normal Not Available [facility] [place] [address] [place], [address], 01/27/2024 11:18:44 02/22/19 24 02/22/2023 maritza r monit or No observ ation record ed. [address] [facility] [address] , [place], [address], 02/22/2023 15:14:16 06/20/19 24 06/08/2023 rhona abel am No observ ation record ed. [email or web address] Not Available 2023 11:52:16 06/20/19 24 04/06/2023 US, echoc ardio gram No observ ation record ed. [email or web address] Not Available 2023 11:31:36 06/20/19 24 US, echoc ardio gram No observ ation record ed. [email or web address] Not Available 2023 11:31:36 06/01/19 25 05/31/2024 XR, thumb No observ ation record ed. [email or web address] [place] [address] [address], [place], [address], 05/31/2024 21:27:05 Result Notes None recorded. Problems Name Problem SNOMED Code Status Onset Date Resolution Date Notes Provider Name and Address Organization Details Recorded Time Foot swelling 665530961 Active Not Available [facility] 3 06:56:28 Chronic cough 74941527 Active 2018 Not Available [facility] 3 06:56:28 Cough 71914167 Active 2022 SEAN Hamlin, [place] [facility] 3 11:40:57 Pharyngitis 991518342 Active 2022 Sridhar Britt MD [address], [place], [address] , [facility] 3 14:53:44 Seizure disorder 108699926 Active 2022 Sridhar Britt MD [address], [address], [place], [address] , [facility] 3 11:26:45 Fever 403867389 Active 2023 Sandi Chavez null, [place] [facility] 4 10:25:46 Influenza 9970586 Active 2023 Sridhar Britt MD [address], [address], [place], [address] , [facility] 4 14:56:55 Malaise and fatigue 789471562 Active 2023 Marni Wright CMA null, [place] [facility] 4 10:48:27 Ventricular fibrillation 38609284 Active 2023 Sridhar Britt MD [address], [address], [place], [address] , [facility] 4 12:14:48 Cardiomyopath y 28744452 Active 2023 Sridhar Britt MD [address], [address], [place], [address] , [facility] 4 10:51:30 Problem Notes None recorded. Medical Equipment None Reported. Allergies Allergen ID Allergen Name Allergen Category Reaction Reaction Severity Criticality Documentation Date Start Date Code Code System Note Provider Name and Address Organization Details Recorded Time 23296 Product containin g penicilli n (product) medicatio n rash Not available Not available 04/07/2022 27294 8001 SNOMED Not Available [facility] 3 07:00:13 Medications Name Sig Start Date Stop Date Status Note LastModified by Organization Details LastModified Time Singulair 10 mg tablet Take 1 tablet every day by oral route. 03/28 completed Not Available Not Available Not Available lamotrigine 150 mg tablet 05/25 completed Not Available Not Available Not Available silver sulfadiazine 1 % topical cream active Not Available Not Available Not Available clindamycin HCl 300 mg capsule Take 1 capsule every 6 hours by oral route. 03/28 completed Not Available Not Available Not Available azithromycin 250 mg tablet TAKE 2 TABLETS (500 MG) BY ORAL ROUTE ONCE DAILY FOR 1 DAY THEN 1 TABLET (250 MG) BY ORAL ROUTE ONCE DAILY FOR 4 DAYS 05/25 completed Not Available Not Available Not Available spironolacto ne 25 mg tablet active Not Available Not Available Not Available lamotrigine 25 mg tablet 01/25 completed Not Available Not Available Not Available amiodarone 400 mg tablet 05/25 completed Not Available Not Available Not Available oseltamivir 75 mg capsule TAKE 1 CAPSULE BY MOUTH TWICE DAILY FOR 5 DAYS 05/25 completed Not Available Not Available Not Available metoprolol succinate ER 25 mg tablet,exten ded release 24 hr 05/25 completed Not Available Not Available Not Available methylpredni solone 4 mg tablets in a dose pack Take by oral route as per package insert 03/14 completed Not Available Not Available Not Available lamotrigine 100 mg tablet TAKE ONE-HALF TAB IN AM AND ONE AND ONE-HALF TABLETS IN PM. active Not Available Not Available No t Available Briviact 100 mg tablet half tablet daily 01/25 completed Not Available Not Available Not Available Briviact 50 mg tablet TAKE 1 TABLET BY MOUTH TWICE A DAY active Not Available Not Available No t Available Vitals Date Recorded Body height Body mass index (BMI) Body weight Heart rate Body temperature Oxygen saturation Oxygen saturation in Arterial blood by Pulse oximetry Systolic And Diastolic Provider Name and Address Organization Details Last Updated DateTime 4 158.75 cm 25.9 kg/m2 71553.3 g 79 /min 97 [degF] 99 % 99 % 112/64 mm[Hg] Sandi Chavez [facility] 4 12:05:53 Date Recorded Body height Body mass index (BMI) Body weight Heart rate Body temperature Oxygen saturation Oxygen saturation in Arterial blood by Pulse oximetry Systolic And Diastolic Provider Name and Address Organization Details Last Updated DateTime 4 158.75 cm 24.3 kg/m2 03272.9 7 g 79 /min 97 [degF] 97 % 97 % 110/62 mm[Hg] MYLENE Zarate [facility] [employer] [facility] 4 10:34:16 Date Recorded Body height Body mass index (BMI) Body weight Body temperature Heart rate Respiratory rate Oxygen saturation Oxygen saturation in Arterial blood by Pulse oximetry Systolic And Diastolic Provider Name and Address Organization Details Last Updated DateTime 3 158.75 cm 28.8 kg/m2 86641.7 8 g 97.3 [degF] 89 /min 16 /min 98 % 98 % 108/66 mm[Hg] Chen Castillo RN [facility] [employer] [facility] 3 11:03:29 Social History None recorded. Functional Status None [...] HAVE YOU BEEN HOSPITALIZED OR SEEN IN [facility] ER IN THE PAST YEAR ? N ATHEROSCLEROSIS [...] split virus, trivalent, PF 01/26/2024 completed MYLENE Zarate [facility], [place] - [facility] [employer] [facility] 01/26/2024 11:45:16 Past Encounters Encounter ID Performer Location Encounter Start Date Encounter Closed Date Diagnosis/Indication Diagnosis SNOMED-CT Code Diagnosis ICD10 Code Diagnosis IMO Codes Diagnosis Note [id number] Sridhar Birtt MD [facility] [address] [address] 02/03/2023 10:53:44 02/03/2023 11:36:29 History of cardiac arrest 827401353 Z86.74 Seizure disorder 7147787 02 G40.705 [id number] Sridhar Britt MD [facility] Med [address] [address] 05/26/2023 11:58:32 05/26/2023 12:26:17 Seizure disorder 810204889 G40.909 Ventricula r fibrillation 17989889 I49.01 [id number] Sridhar Britt MD [facility] [place] [address]ompson [address] [facility] [address] [place] [address] 01/26/2024 10:27:26 01/26/2024 14:10:33 Adult health examination 954136844 Z00.00 Depression screening 171 167840 Z13.31 Cardiomyopathy 48961456 I42.9 Seizure disorder 9611435 02 G40.909 Ventricula r fibrillation 03117084 I49.01 Health Concerns Section Related Observation LastModified by Organization Detai ls LastModified Time None Recorded Concern Status LastModified by Organization Details LastModified Time None Recorded Advance Directives Directive None Recorded Payers Insurance Date Sequence Insurance Name Policy Number Policy Gandhi Covered Member ID Gandhi Member ID Guarantor Name 08/01/2024 1 [employer] (PPO) [id number] Miguel Angel Abrams [id number] Sejal Abrams Notes Date Note Type Note Provider Name and Address Organization Details Recorded Time 023 text/ht ml Patient Name: Sejal AbramsDate Of Service: January ( 02.03.2023 ): 1975 [...] Systemic Symptoms:none Medication Reconciliation: from medication list. Avnrjqgisvi91/12/2023: Ultrasound pelvis demonstrated thickening of the endometrial [...] MG BidADRs List Reviewed 02/03/2023enicillin RashVaccination and Qdbfcavdxoca1108-91 Vgjeconho8913-99 Hep BSurgical HistoryAppendectomyPreventative Testing Confirmed by Our Pdiqrmo7012/16/2022 ALBUMIN 3.6 G/DL N009/10/2022 MAMMOGRAM & ULTRASOUND 09/11/2023Social HistoryDoes not smokeDrinks sociallyWorks in medical recordsFamily HistoryMother 67 good healthFather 69 BDM, CADOne brother living and in good healthMenarche 12 Menopause A0 Sridhar Britt MD [address], [address], [place] [facility] 02/03/2023 11:28:58 024 text/ht ml Patient Name: Sejal Ackerman Of [...] Systemic Symptoms:none Medication Reconciliation: from medication list. 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 Dglkrszvqmk46/12/2023: Ultrasound pelvis demonstrated thickening of the endometrial [...] ) 2007-05 HEP B(X) 2018-03 INFLUENZA Surgical Goowanx8828-71 PFXL5383-16 Appendectomy Preventative Testing( ) 12/16/2022 Albumin 3.6 [...] ) 2007-05 HEP B(X) 2018-03 INFLUENZA Surgical Cxsgvef8676-26 AWWF3432-80 Appendectomy Preventative Testing( ) 12/16/2022 Albumin 3.6 G/DL N(X) 09/10/2022 Mammogram & Ultrasound 09/11/2023 Social HistoryDoes not smokeDrinks sociallyWorks in medical records Family HistoryMother 67 good healthFather 69 BDM, CADOne brother living and in good healthMenarche 12 Menopause A0 Sridhar Britt MD [address] [facility], [facility] [address], [place], [address], [place] [facility] 01/26/2024 10:56:56 OBGyn Episode No OBEpisode recorded.
--- OUTSIDE RECORDS SUMMARY | 2024-11-27 20:13 | XMS_ITS | Patient Health Record ---
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 Jose Armstrong Unavailable [phone] Allergies Allergen (clinical drug ingredient) Drug/Non Drug [...] MG 1 tablet orally Twic e a day; Duration: 30 days 10/06/2023 Active lamoTRIgine 100 MG 0.5 tab in AM, 1.5 t ab in PM orally with meals as directed; Duration: 30 days Active Social History Tobacco Use: [...] Problem Status W/U Status Risk Notes Problem Information temporarily unavailable Epilepsy, unspecified, not intractable, without status epilepticus (G40.909) Active confirmed Problem Information temporarily unavailable Epilepsy, unspecified, intractable, without status epilepticus (G40.919) Active confirmed Problem Information temporarily unavailable Migraine without aura, not intractable, without status migrainosus (G43.009) Active confirmed Problem Information temporarily unavailable Migraine with aura, not intractable, without status migrainosus (G43.109) Active confirmed Problem Information temporarily unavailable Chronic migraine without aura, not intractable, without status migrainosus (G43.709) Active confirmed Problem Information temporarily unavailable Insomnia, unspecified (G47.00) Active confirmed Problem Information temporarily unavailable Encounter for therapeutic drug level monitoring (Z51.81) Active confirmed Encounters Encounter Location Date Provider Diagnosis [facility] [address] [place] [address] 04/02/2024 Jose Forman Epilepsy, unspecif ied, not intractable, without status epilepticus G40.909 Assessments Encounter Date Diagnosis (ICD Code) Assessment Notes Treatment Notes Treatment Clinical Notes Section Notes 04/02/2024 Epilepsy, unspecified, not intractable, without status epilepticus (ICD-10 - G40.909) Plan Of Treatment Pending Test Test Name Order Date Lamotrigine (Lamictal), Serum 06/01/2023 Insurance Providers Payer Name Payer Address Payer Phone Subscriber Number Group Number Insured Name Patient Relationship to Insured Coverage Start Date Coverage End Date R [address] [address] [place], [place] [phone] [id number] Miguel Angel Abrams Spouse - patient is the spouse of the insured Medical (General) History Medical History History ICD Code Epilepsy H/o cardiac arrest after seizure x2 Surgical History Surgery Date(Month/Year) S/p ICD
--- OUTSIDE RECORDS SUMMARY | 2024-11-27 20:14 | XMS_ITS | Clinical Summary ---
Author Organization [facility] Address [address] [facility] [place] [address] Care Team Providers Care Model Artists' Name Role Phone Sridhar Britt MD Primary Care Provider Source Comments [facility],non-owned Affiliates and Associated Physician Practices is amultiple site organization consisting of ambulatory clinics and hospital sitesin [place], [place], [place] and [place]. This disclosure is being madepursuant to the Care Everywhere program and may not contain all information available regarding this patient. 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 Gender Identity Not on file [...] 6:20 PM CDT Height 160 cm (5' 3) 10/15/2020 6:20 PM CDT Body Mass Index 23.91 10/15/2020 6:20 PM CDT Plan of Treatment Health Maintenance Due Date Last Done Comments COLON MONITORING 1975 COLONOSCOPY - COLON CA SCREENING 1975 CT COLONOGRAPHY - COLON CA SCREENING 1975 FIT - COLON CA SCREENING 1975 FLEX SIG - COLON CA SCREENING 1975 LIPID TESTING 1975 MAMMOGRAM 1975 HIV SCREENING 10/19/1990 HEPATITIS C SCREENING 10/15/1993 DTAP/TDAP/TD VACCINES (1 - Tdap) 10/19/1994 HEPATITIS B VACCINE (1 of 3 - 19+ 3-dose series) 10/19/1994 PAP SMEAR 10/19/1996 DEPRESSION SCREENING 02/08/2024 COVID-19 VACCINE (3 - 2024-2 6 season) 2024 05/09/2020, 04/20/2020 INFLUENZA VACCINE (#1) 2024 11/20/2018 COLOGUARD (AGES 45-75) - COL [...] patient's age to complete this topic Insurance ANTH Care Teams Model Artists' Relationship Specialty Start Date End Date Sridhar Britt MD [address] [place] [address] [address] [place] [address] PCP - General Internal Medicine 12/12/17
--- OUTSIDE RECORDS SUMMARY | 2024-11-27 20:14 | XMS_ITS | Encounter Summary ---
Author Organization [facility] Address [address] [place] [address] Care Team Providers Care Drophammer Operator Name Role Phone Sridhar Britt MD Primary Care Provider Dianne Fontana RN Unavailable Encounter Details Date Type Department Care Team (Late st Contact Info) Description 12/16/2022 Orders Only [facility] Cardiac Catheterization Lab [address] [place] [address] Amador Hong MD [address] [place] [address] Cardiac arrest (HCC) (Primary Dx) Social History Tobacco Use Types Packs/Day Years Used Date Smoking Tobacco: Never Smokeless Tobacco: Never Alcohol Use Standard Drinks/Week Comments Defer 0 (1 standard drink = 0.6 oz pur e alcohol) [facility] Utilities Answer Date Recorded In the past 12 months has [employer], gas, oil, or water [employer] threatened to shut off services in your home? No 12/17/2022 Social Connection and Isolation Panel Answer Date Recorded In a typical week, how many times do you talk on the phone with family, friends, or neighbors? More than three times a week 12/17/2022 How often do you get togethe r with friends or relatives? More than three times a week 12/17/2022 How often do you attend [facility] or quaker services? Patient declined 12/17/2022 Do you belong to any clubs o r organizations such as scientologist groups, unions, fraternal or athletic groups, or [...] place to sleep or slept in a mcc (including now)? 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 Gender Identity Not on file Sexual Orientation Not on file documented as of this encounter Functional Status * AUDIT-C Score Answer Date of Assessment Author 2 [...] of this encounter Visit Diagnoses Diagnosis Cardiac arrest- Primary documented in this encounter Additional Health Concerns Infection Onset Date Last Indicated Resolved Time COVID: Suspected 04/04/2023 04/04/2023 04/04/2023 11:39 AM WARPING MACHINE OPERATOR Influenza, adult 04/04/2023 04/04/2023 04/11/2023 9:41 AM WARPING MACHINE OPERATOR documented as of this encounter Care Teams Drophammer Operator Relationship Specialty Start Date End Date Sridhar Britt MD PCP - General 04/08/18 Dianne Fontana RN [address] [facility] [address] [place] [address] [employer] Outpatient Chemist Internship 04/18/23 05/08/23 documented as of this encounter
--- OUTSIDE RECORDS SUMMARY | 2024-11-27 20:14 | XMS_ITS | Clinical Summary ---
Author Organization [facility] Care Team Providers Care Kindergarten Assistant Name Role Phone Unavailable Primary Care Provider Unavailabl e Social History Tobacco Use Types Packs/Day Years Used Date Smoking Tobacco: Never Assessed Comments Unknown Sex and Gender Information Value Date Recorded Sex Assigned at Not on file Legal Sex Female 12:58 PM RN BABY Gender Identity Not on file Sexual Orientation Not on file Plan of Treatment Health Maintenance Due Date Last Done Comments Hepatitis C Virus (HCV) Screening 1975 Hepatitis B Immunization (1 of 3 - 19+ 3-dose series) 10/19/1994 Pap Smear 10/19/1996 Cervical Cancer Screening (CCS) 10/19/2005 HPV/Cotest 10/19/2005 Cologuard 10/19/2020 Colonoscopy 10/19/2020 Colorectal Cancer Screening 10/19/2020 Immunochemical Fecal Occult Blood 10/19/2020 Influenza Immunization (#1) 2024 11/20/2018 SARS-COV-2 Immunization ( season) 2024 12/19/2020, 05/09/2020, 04/20/2020 Respiratory Syncytial Virus (RSV) Immunization (Adult) (1 - 1-dose 75+ series) 10/19/2050 DTaP/Tdap/Td Immunization Discontinued 11/20/2018 TdaP Immunization Completed 11/20/2018 Human Papillomavirus (HPV) Immunization Aged Out No longer eligible based on patient's age to complete this topic Meningococcal Immunization (ACWY) Aged Out No longer eligible based on patient's age to complete this topic Pneumococcal Immunization Combined Aged Out No longer eligible based on patient's age to complete this topic Rotavirus Immunization Aged Out No lo nger eligible based on patient's age to complete this topic
--- OUTSIDE RECORDS SUMMARY | 2024-11-27 20:14 | XMS_ITS | Encounter Summary ---
Author Organization [facility] Address [address] [facility] [place] [address] Care Team Providers Care Trimmer And Reinforcer Name Role Phone Sridhar Britt MD Primary Care Provider Encounter Details Date Type Department Care Team (Late st Contact Info) Description 06/01/2024 Lab Requisition 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 Gender Identity Not on file Sexual Orientation Not on file 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 - Received: 06/01/2024 09:09 AM DermPath Lab Pathologist: Geraldine Knapp MD Specimens: A) - Skin, right post lower leg B) - Skin, mid crown of scalp 4:27 PM CDT DERMATOPATHOLOGY LABORATORY Final Diagnosis Specimen A. SKIN, right post lower leg: INTRADERMAL MELANOCYTIC NEVUS (D22.71) Specimen B. SKIN, mid crown of scalp: LENTIGINOUS MELANOCYTIC NEVUS, COMPOUND TYPE, IRRITATED (D22.4) 4:27 PM CDT DERMATOPATHOLOGY LABORATORY at 1627 CDT Clinical History A. IRR Nevus B. R/O Benign Nevus vs. Neoplasm 4:27 PM CDT DERMATOPATHOLOGY LABORATORY Gross Description Specimen A: Received is one formalin filled container labeled with the patients name and designated right post lower leg. The specimen consists of a shave removal measuring 5x3x1 mm. Jar 0. Specimen B: Received is one formalin filled container labeled with the patient's name and designated mid crown of scalp. The specimen consists of a shave biopsy measuring 6x4x1 mm. Jar 0. 4:27 PM CDT DERMATOPATHOLOGY LABORATORY Microscopic Description Specimen A. SKIN, right post lower leg: There are nests of cytologically bland melanocytes within the dermis that mature with depth. Specimen B. SKIN, mid crown of scalp: This is a compound nevus. There is melanin pigment within the stratum corneum. There is a lentiginous proliferation of melanocytes between nests of cells along the dermal-epidermal junction, highlighted by MART-1/Melan-A immunohistochemical staining. There is underlying fibroplasia of the papillary dermis. The intradermal component is bland appearance and matures with depth. PRAME stains the melanocytes with 1+ intensity. Original and deeper sections were reviewed. (Compound Trino's Nevus) 4:27 PM CDT DERMATOPATHOLOGY LABORATORY Disclaimer An external and internal positive and negative controls are appropriate for the histochemical, immunohistochemical and immunofluorescence stain(s) in this case (if any), except where stated explicitly. The performance characteristics of the stain(s) cited in this report were developed and its performance characteristic determined by the Dermatopathology Laboratory at [facility], directed by Dr. Andrew Seo. These tests need not be, and therefore are not, approved by the [place] Food and Drug Administration. The tests are used for clinical purposes. Billing Codes Specimen Charges Stain Charges 99888 59313 1 1 98336 01226 1 1 4:27 PM CDT DERMATOPATHOLOGY LABORATORY Embedded Images 4:27 PM CDT DERMATOPATHOLOGY LABORATORY Pathology/Cytology TISSUE SPECIMEN FROM SKIN / Unknown 05/31/2024 06/01/2024 9:09 AM CDT Miscellaneous samples (specimen) TISSUE SPECIMEN FROM SKIN / Unknown 05/31/2024 06/01/2024 9:09 AM CDT William Mitchell MD LAB - PATHOLOGY/CYTOLOGY ORDERAB LES Final Result DERMATOPATHOLOGY LABORATORY [facility] - Department of Dermatology [facility] Specialized Medicine [address] [place] [address], [address] [phone] documented in this encounter Visit Diagnoses Not on filedocumented in this encounter Care Teams Trimmer And Reinforcer Relationship Specialty Start Date End Date Sridhar Britt MD [address] [place] [address] [address] [place] [address] PCP - General Internal Medicine 12/12/17 documented as of this encounter
--- OUTSIDE RECORDS SUMMARY | 2024-11-27 20:14 | XMS_ITS | Encounter Summary ---
Author Organization [facility] Address [address] [facility] [place] [address] Care Team Providers Care Manager Multicultural Name Role Phone Sridhar Britt MD Primary Care Provider Rudolph Alvares MD Unavailable [phone] Encounter Details Date Type Department Care Team (Late st Contact Info) Description 10/06/2021 Lab Requisition [facility] Care DermPath Lab [address] [facility] [place] [address] William Mitchell MD [address] [place] [address] Social History Tobacco Use Types Packs/Day Years Used Date Smoking Tobacco: Never Smokeless Tobacco: Never Alcohol Use Standard Drinks/Week Comments Yes 0 (1 standard drink = 0.6 oz pur e alcohol) 0-1 on holidays Comments No Sex and Gender Information Value Date Recorded Sex Assigned at Not on file 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 SKIN, mid back: INTRADERMAL MELANOCYTIC NEVUS (D22.5) 2 3:57 PM CDT DERMATOPATHOLOGY LABORATORY at 1557 CDT Clinical History Irritated Nevus 2 3:57 PM CDT DERMATOPATHOLOGY LABORATORY Gross Description Specimen A: Received is one formalin filled container labeled with the patients name and designated mid back. The specimen consists of a shave removal measuring [id number]. Jar 0. 2 3:57 PM CDT DERMATOPATHOLOGY [...] characteristic determined by the Dermatopathology Laboratory at [facility], directed by Dr. Andrew Seo. These tests need not be, and therefore are not, approved by the [place] Food and Drug Administration. The tests are used for clinical purposes. Billing Codes Specimen Charges Stain Charges 98199 1 2 3:57 PM CDT DERMATOPATHOLOGY LABORATORY Embedded Images 2 3:57 PM CDT DERMATOPATHOLOGY LABORATORY Pathology/Cytolog y TISSUE SPECIMEN FROM SKIN / Unknown 10/06/2021 10/06/2021 4:37 PM CDT William Mitchell MD LAB - PATHOLOGY/CYTOLOGY ORDERAB LES Final Result DERMATOPATHOLOGY LABORATORY [facility] - Department of Dermatology [facility] Medicine [address] [place] [address], [address] [phone] documented in this encounter Visit Diagnoses Not on filedocumented in this encounter Care Teams Manager Multicultural Relationship Specialty Start Date End Date Sridhar Britt MD [address] [address] [address] [place] [address] PCP - General Internal Medicine 12/12/17 Rudolph Alvares MD [address] [facility] [address] [place] [address] PCP - Attributed-[employer] [place] 03/10/21 07/25/22 documented as of this encounter
--- OUTSIDE RECORDS SUMMARY | 2024-11-27 20:14 | XMS_ITS | Clinical Summary ---
Author Organization [facility] Address [address] [place] [address] Care Team Providers Care Operating Engineer Name Role Phone Sridhar Britt MD Primary Care Provider Allergies Active Allergy Reactions Criticality Noted Date Comments Amiodarone Vision changes,Dizziness,Nausea only Medium 05/09/2023 Carbamazepine Penicillins Rash Reaction: Rash, Valproic Acid Medications cholecalciferol (VITAMIN D-3) 2000 unit capsule Take 1 capsule (2,000 Units total) by mouth daily 04/16/2023 Active brivaracetam (BRIVIACT) 100 mg tablet Take 1 tablet (100 mg total) by mouth 2 (two) times a day 60 tablet 2 04/16/2023 Active lamoTRIgine (LaMICtal) 100 mg tablet Take 1 tablet (100 mg total) by mouth daily 30 tablet 2 04/16/2023 Active spironolactone (ALDACTONE) 25 mg tablet Take 1 tablet (25 mg total) by mouth daily 90 tablet 3 07/26/2024 Active Active Problems Problem Noted Date Diagnosed Date Seizure 04/04/2023 Cardiogenic shock 04/04/2023 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 She enjoys a normal neurological examination at this time. I would recommend ouxo-umh-rppscrv anti-inflammatories on an as-needed basis if the headaches do recur. Generalized idiopathic epile psy and epileptic syndromes, not intractable, without status epilepticus 11/01/2019 Assessment & Plan (12/16/2020 9:35 AM MANDARIN SPEAKING NANNY): Patient continues on lamotrigine 100 mg b.i.d. with good tolerability and no seizures reported over the past year. I have reviewed teratogenicity and suggested use of an xojt-gvf-jbtnazx multivitamin with folic acid an effort to [...] Encounters Date Type Department Care Team Description 09/07/2024 2:45 PM CDT Office Visit [facility] Medicine Cardiology [address] [place] [address] 8th [place] [address] [place] [address] Francisco Javier Narayanan MD Fitting or adjustment of automatic implantable cardioverter-defibri llator (Primary Dx); Ventricular fibrillation (HCC) 09/07/2024 2:15 PM CDT Ancillary Procedure [facility] Medicine Cardiology [address] [place] [address] 8th [place] [address] [place] [address] Ventricular fibrillation (HCC) (Primary Dx); Fitting or adjustment of automatic implantable cardioverter-defibri llator 08/29/2024 Orders Only [facility] Medicine Cardiology [address] [facility] 8th [place] [address] [place] [address] Francisco Javier Narayanan MD from Last 3 Months Surgical History Surgery Date Site/Laterality Comments IA APPENDECTOMY 02/08/1996 - 02/06/1997 Appendectomy - (Added by TW Conv) Medical History Medical History Date Comments Generalized seizures (HCC) Family History Medical History Relation Name Comments Diabetes Father Hypertension Father Epilepsy Other Seizure Disorde r - Her cousin has epilepsy. (Added by TW Conv) Relation Name Status Comments Father Alive Mother Alive Other Social History Tobacco Use Types Packs/Day Years Used Date Smoking Tobacco: Never Smokeless Tobacco: Never Tobacco Cessation:Counseling Given: Not Answered Alcohol Use Standard Drinks/Week Comments Defer 0 (1 standard drink = 0.6 oz pur e alcohol) [facility] Utilities Answer Date Recorded In the past 12 months has th e electric, gas, oil, or water company threatened to shut off services in your home? No 04/18/2023 Social Connection and Isolation Panel Answer Date Recorded In a typical week, how many times do you talk on the phone with family, friends, or neighbors? More than three times a week 04/18/2023 How often do you get togethe r with friends or relatives? More than three times a week 04/18/2023 How often do you attend chur ch or uatsdin services? Patient declined 04/18/2023 Do you belong to any clubs o r organizations such as protestant groups, unions, fraternal or athletic groups, or [...] place to sleep or slept in a senior care (including now)? No 04/18/2023 Personal Safety Answer Date Recorded Have you ever been in or are you currently in a harmful physical or emotional relationship or is someone making you feel afraid or unsafe? Denies 09/08/2023 Comments No Sex and Gender Information Value Date Recorded Sex Assigned at Not on file Legal Sex Female 4:51 AM MANDARIN SPEAKING NANNY Gender Identity Not on file Sexual Orientation Not on file Obstetrics History Last Filed Vital Signs Vital Sign Reading Time Taken Comments Blood Pressure 103/71 09/07/2024 2:22 PM CDT Pulse 65 09/07/2024 2:22 PM CDT Temperature 36.4 C (97.6 F) 11/24/2023 11:20 AM CDT Respiratory Rate 18 11/24/2023 11:2 0 AM CDT Oxygen Saturation 99% 09/07/2024 2:22 PM CDT Inhaled Oxygen Concentration - - Weight 60.7 kg (133 lb 12.8 oz) 09/07/2024 2:22 PM CDT Height 160 cm (5' 3) 09/07/2024 2:22 PM CDT Body Mass Index 23.7 09/07/2024 2:22 PM CDT Plan of Treatment Health Maintenance Due Date Last Done Comments Breast Cancer Screening-Mammogram 1975 Cervical Cancer Screening 1975 Colon Cancer Screening-Colonoscopy 1975 Depression Screening 1975 Hepatitis C Screening 1975 Hepatitis B Screening 10/19/1993 Regular Well Visit/Exam 18-64 10/19/1993 Influenza Vaccine (#1) 2024 4, 11/20/2018 DTaP/Tdap/Td Vaccine (2 - Td or Tdap) 11/20/2028 11/20/2018 Pneumococcal vaccine <65 Aged Out No longer eligible based on patient's age to complete this topic Medical Devices Implanted Type Area Order Control Clerk Blood Bank Device Identifier Shelf Expiration Date Model / Serial / Lot [employer] Grenora Mri S-Icd 83.1x69.1mm Pulse Generator Battery Subcutaneous A219 - [id number] - [id number] Implanted:Qty: 1 on 04/14/2023 by Francisco Javier Narayanan MD at [facility] ICD [employer]. 02/20/2025 [id number] / [id number] / [employer] Gin [facility] S[facility]Icd Subcutaneous Electrode Defibrillator 3501 - [id number] - [id number] Implanted:Qty: 1 on 04/14/2023 by Francisco Javier Narayanan MD at [facility] Subcutaneous Defibrillator Electrode [employer] Gin 02/15/2025 [id number] / [id number] / Procedures Procedure Name Priority Date/Time Associated Diagnosis Comments DEVICE CHECK - IN OFFICE Routine 09/07/2024 2:15 PM CDT Fitting or adjustment of automatic implantable cardioverter-defibril lator Ventricular fibrillation (HCC) DEVICE CHECK - REMOTE Routine 08/29/2024 9:43 AM CDT from Last 3 Months Results * DEVICE CHECK - IN OFFICE (09/07/2024 2:15 PM CDT) Anatomical Region Laterality Modality Other 09/07/2024 2:00 AM CDT Narrative 09/12/2024 1:15 PM CDT Interpretation Summary: Procedure Note Francisco Javier Narayanan MD - 09/12/2024 Interpretation Summary: Francisco Javier Narayanan MD CV CARDIAC SERVI KANDICE PROCEDURES Final Result * DEVICE CHECK - REMOTE (08/29/2024 9:43 AM CDT) Anatomical Region Laterality Modality Other 08/29/2024 9:43 AM CDT Narrative 09/05/2024 11:02 AM CDT Interpretation Summary: Battery and Leads (BL) Normal parameters noted on battery and lead(s) --- 86 % remaining Presenting Rhythm (IA) Ventricular Sensing (VS) --- rate 70 Arrhythmic events (AE) No new arrhythmic events in monitoring period Transmission Information (TI) Device Summary Report Procedure Note Francisco Javier Narayanan MD - 09/05/2024 Interpretation Summary: Battery and Leads (BL) Normal parameters noted on battery and lead(s) --- 86 % remaining Presenting Rhythm (IA) Ventricular Sensing (VS) --- rate 70 Arrhythmic events (AE) No new arrhythmic events in monitoring period Transmission Information (TI) Device Summary Report us Francisco Javier Narayanan MD CV CARDIAC SERVI KANDICE PROCEDURES Final Result from Last 3 Months Insurance [facility] ANTHEM ACCESS CHOICE ANTHEM ACCESS CHOICE Advance Directives For more information, please contact: [phone] * Full Code (Latest Code Status on File) Date Activated Date Inactivated Comments 04/04/2023 6:53 AM 04/16/2023 3:35 PM * Full Code Date Activated Date Inactivated Comments 12/16/2022 3:10 PM 12/17/2022 10:36 PM Care Teams Operating Engineer Relationship Specialty Start Date End Date Sridhar Britt MD PCP - General 04/08/18
--- OUTSIDE RECORDS SUMMARY | 2024-11-27 20:14 | XMS_ITS | Clinical Summary ---
Author Organization [address] Address [address] [place] [address] Care Team Providers Care Baster Hand Name Role Phone Unavailable Primary Care Provider Unavailabl e Allergies Active Allergy Reactions Criticality Noted Date Comments Penicillins Hives High 04/02/2024 Medications spironolact/hydr ochlorothiazid (SPIRONOLACTON-H YDROCHLOROTHIAZ ORAL) Active brivaracetam (BRIVIACT) 50 mg tabletIndication s:Nonintractable epilepsy without status epilepticus, unspecified epilepsy type (CMS/HCC) Take 1 Tablet (50 mg) by mouth 2 times daily. 3-month supply 180 Tablet 1 10/01/2024 Active lamoTRIgine (LaMICtal) 100 mg tabletIndication s:Nonintractable epilepsy without status epilepticus, unspecified epilepsy type (CMS/HCC) TAKE ONE-HALF TAB IN AM AND ONE AND ONE-HALF TABLETS IN PM. 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 fibrillation 01/24/2023 Dizziness 09/29/2017 Encounters Date Type Department Care Team Description 10/30/2024 External Device Data STL ABSTRACTION Provider, Abstract 10/23/2024 External Device Data STL ABSTRACTION Provider, Abstract 10/09/2024 External Device Data STL ABSTRACTION Provider, Abstract 10/01/2024 8:00 AM CDT Office Visit [facility] Neurology [facility] [address] [place] [phone] Jose Forman MD Nonintractable epilepsy without status epilepticus, unspecified epilepsy type (CMS/HCC) (Primary Dx); MCI (mild cognitive impairment) 09/25/2024 External Device Data STL ABSTRACTION Provider, Abstract 09/25/2024 Refill [facility] Neurology [facility] [address] [facility] [place] [address] Jose Forman MD Nonintractable epilepsy without status epilepticus, unspecified epilepsy type (CMS/HCC) (Primary Dx) from Last 3 Months Family History Medical [...] Sex Assigned at Female 01/27/2024 8:02 PM TRANSMISSION REPAIRER Legal Sex Female 2:32 PM TRANSMISSION REPAIRER Gender Identity Female 01/27/2024 8:02 PM TRANSMISSION REPAIRER Sexual Orientation Straight 01/27/2024 8: 02 PM TRANSMISSION REPAIRER Last Filed Vital Signs Vital Sign Reading Time Taken Comments Blood Pressure 102/60 10/01/2024 7:53 AM CDT Pulse 91 10/01/2024 7:53 AM CDT Temperature - - Respiratory Rate - - Oxygen Saturation 98% 10/01/2024 7:53 AM CDT Inhaled Oxygen Concentration - - Weight 60.6 kg (133 lb 9.6 oz) 10/01/2024 7:53 A M CDT Height 160 cm (5' 3) 10/01/2024 7:53 AM CDT Body Mass Index 23.67 10/01/2024 7:53 AM CDT Plan of Treatment Upcoming Encounters Date Type Department Care Team (Late st Contact Info) Description 04/03/2025 11:45 AM TRANSMISSION REPAIRER Office Visit [facility] Neurology [facility] [address] [facility] [address] [place] [address] [place] [address] [facility] [address] [place] [address] Health Maintenance Due Date Last Done Comments [...] Q 5 years 10/19/2020 INFLUENZA VACCINE (#1) 2024 Insurance BLUE ACCESS CHOICE
--- OUTSIDE RECORDS SUMMARY | 2024-11-27 21:48 | XMS_ITS | Encounter Summary ---
Author Organization [facility] Address [address] [place] [address] Care Team Providers Care Stone Fabricator Name Role Phone Sridhar rBitt MD Primary Care Provider Dianne Fontana RN Unavailable [phone] Encounter Details Date Type Department Care Team (Late st Contact Info) Description 12/16/2022 Orders Only [facility]iac [facility]atheterization Lab [address] [place] [address] Amador Hong MD [address] [place] [address] Cardiac arrest (HCC) (Primary Dx) Social History Tobacco Use Types Packs/Day Years Used Date Smoking Tobacco: Never Smokeless Tobacco: Never Alcohol Use Standard Drinks/Week Comments Defer 0 (1 standard drink = 0.6 oz pur e alcohol) [facility] Utilities Answer Date Recorded In the past 12 months has [employer], gas, oil, or water [employer] threatened to shut off services in your [...] 12/17/2022 How often do you attend [facility] or rastafarian services? Patient declined 12/17/2022 Do you belong to any clubs o r organizations such as moravian groups, unions, fraternal or athletic groups, or [...] place to sleep or slept in a longterm (including now)? No 12/17/2022 Comments Unknown Sex and Gender Information Value Date Recorded Sex Assigned at Not on file Legal Sex Female 4:51 AM CLIENT REPORTING ASSOCIATE Gender Identity Not on file Sexual Orientation [...] COVID: Suspected 04/04/2023 04/04/2023 04/04/2023 11:39 AM CLIENT REPORTING ASSOCIATE Influenza, adult 04/04/2023 04/04/2023 04/11/2023 9:41 AM CLIENT REPORTING ASSOCIATE documented as of this encounter Care Teams Stone Fabricator Relationship Specialty Start Date End Date Sridhar Britt MD PCP - General 04/08/18 Dianne Fontana RN [address] [facility] [address] [place] [address] SHOP Outpatient Solution Strategist 04/18/23 05/08/23 documented as of this encounter
--- OUTSIDE RECORDS SUMMARY | 2024-11-27 21:48 | XMS_ITS | Clinical Summary ---
Author Organization [address] Address [address] [place] [address] Care Team Providers Care Copy Lathe Tender Name Role Phone Unavailable Primary Care Provider [...] Abstract 10/01/2024 8:00 AM CDT Office Visit [facility] Neurology [facility] [place] [address] [facility] [address] [place] [phone] Jose Forman MD Nonintractable epilepsy without status epilepticus, unspecified epilepsy type (CMS/HCC) (Primary Dx); MCI (mild cognitive impairment) 09/25/2024 External Device Data STL ABSTRACTION Provider, Abstract 09/25/2024 Refill [facility] Neurology [facility] [place] [address] [facility] [address] [place] [address] Jose Forman MD Nonintractable epilepsy [...] Sex Assigned at Female 01/27/2024 8:02 PM WARDROBE COORDINATOR Legal Sex Female 2:32 PM WARDROBE COORDINATOR Gender Identity Female 01/27/2024 8:02 PM WARDROBE COORDINATOR Sexual Orientation Straight 01/27/2024 8: 02 PM WARDROBE COORDINATOR Last Filed Vital Signs Vital Sign Reading [...] st Contact Info) Description 04/03/2025 11:45 AM WARDROBE COORDINATOR Office Visit [facility] Neurology [facility] [place] [address] [facility] [address] [place] [address] [place] [address] [facility] [address] [place] [address] Health Maintenance Due Date Last [...]
--- OUTSIDE RECORDS SUMMARY | 2024-11-27 21:48 | XMS_ITS | Clinical Summary ---
Author Organization [facility] Care Team Providers Care Ceiling Insulation Blower Name Role Phone Unavailable Primary Care Provider Unavailabl e Social History Tobacco Use Types Packs/Day Years Used Date Smoking Tobacco: Never Assessed Comments Unknown Sex and Gender Information Value Date Recorded Sex Assigned at Not on file Legal Sex Female 12:[address] Gender Identity Not on file Sexual [...]
--- OUTSIDE RECORDS SUMMARY | 2024-11-27 21:48 | XMS_ITS | Clinical Summary ---
Author Organization [facility] Address [address] [facility] [place] [address] Care Team Providers Care Paint Pourer Name Role Phone Sridhar Britt MD Primary Care Provider Source Comments [facility],non-owned Affiliates and Associated Physician Practices is amultiple site organization consisting of ambulatory clinics and hospital sitesin [place], [place], [place] and [place]. This disclosure is being madepursuant to the Care Everywhere program and may not contain all information available regarding this patient. Last updated 17.[facility] Allergies Active Allergy Reactions Criticality [...] at 53, RSR in V1/V2, ERWP, intervals [phone] 12/25 Event recorder: Chest pain, shortness of [...] on file Legal Sex Female 5:54 PM HUNTER GUIDE Gender Identity Not on file Sexual Orientation [...] complete this topic Insurance ANTH Care Teams Paint Pourer Relationship Specialty Start Date End Date Sridhar Britt MD [address] [place] [address] [address] [place] [address] PCP - General Internal Medicine 12/12/17
--- OUTSIDE RECORDS SUMMARY | 2024-11-27 21:48 | XMS_ITS | Encounter Summary ---
Author Organization [facility] Address [address] [facility] [place] [address] Care Team Providers Care Seismographer Name Role Phone Sridhar Britt MD Primary Care Provider Rudolph Alvares MD Unavailable [phone] Encounter Details Date Type Department Care Team (Late st Contact Info) Description 10/06/2021 Lab Requisition [facility] Care DermPath Lab [address] [facility] [place] [id number] William Mitchell MD [address] [place] [address] Social History Tobacco Use Types Packs/Day Years Used Date Smoking Tobacco: Never Smokeless Tobacco: Never Alcohol Use Standard Drinks/Week Comments Yes 0 (1 standard drink = 0.6 oz pur e alcohol) 0-1 on holidays Comments No Sex and Gender Information Value Date Recorded Sex Assigned at Not on file Legal Sex Female 5:54 PM TROLLEY CLEANER Gender Identity Not on file Sexual Orientation [...] AM CDT) Case Report Dermatopathology Report Case: [id number] Authorizing Provider: William Mitchell MD Collected: 10/06/2021 12:00 AM Ordering Location: [facility] Lab Received: 10/06/2021 04:37 PM Pathologist: [...] specimen consists of a shave removal measuring [id number]. Jar 0. 2 3:57 PM CDT DERMATOPATHOLOGY [...] characteristic determined by the Dermatopathology Laboratory at [facility], directed by Dr. Andrew Seo. These tests need not be, and therefore are not, approved by the [place] Food and Drug Administration. The tests are used for clinical purposes. Billing Codes Specimen Charges Stain Charges 18473 1 2 3:57 PM CDT DERMATOPATHOLOGY LABORATORY Embedded Images 2 3:57 PM CDT DERMATOPATHOLOGY LABORATORY Pathology/Cytolog y TISSUE SPECIMEN FROM SKIN / Unknown 10/06/2021 10/06/2021 4:37 PM CDT William Mitchell MD LAB - PATHOLOGY/CYTOLOGY ORDERAB LES Final Result DERMATOPATHOLOGY LABORATORY [facility] - Department of Dermatology [facility] Medicine [address] [place] [address], [address] [phone] documented in this encounter Visit Diagnoses Not on filedocumented in this encounter Care Teams Seismographer Relationship Specialty Start Date End Date Sridhar Britt MD [address] [address] [address] [place] [address] PCP - General Internal Medicine 12/12/17 Rudolph Alvares MD [address] [facility] [address] [place] [address] PCP - Attributed-[employer] [place] 03/10/21 07/25/22 documented as of this encounter
--- OUTSIDE RECORDS SUMMARY | 2024-11-27 21:48 | XMS_ITS | Encounter Summary ---
Author Organization [facility] Address [address] [facility] [place] [address] Care Team Providers Care Lobby Porter Name Role Phone Sridhar Britt MD Primary Care Provider Encounter Details Date Type Department Care Team (Late st Contact Info) Description 06/01/2024 Lab Requisition [facility] - DermPath Lab [address] [facility] [place] [phone] William Mitchell MD [address] [place] [address] Social History Tobacco Use Types Packs/Day Years Used Date Smoking Tobacco: Never Smokeless Tobacco: Never Alcohol Use Standard Drinks/Week Comments Yes 0 (1 standard drink = 0.6 oz pur e alcohol) 0-1 on holidays Comments No Sex and Gender Information Value Date Recorded Sex Assigned at Not on file Legal Sex Female 5:54 PM MOBILE PHLEBOTOMIST Gender Identity Not on file Sexual Orientation [...] AM CDT) Case Report Dermatopathology Report Case: [id number] Authorizing Provider: William Mitchell MD Collected: 05/31/2024 12:00 AM Ordering Location: [facility] - Received: 06/01/2024 09:09 AM [...] Original and deeper sections were reviewed. (Compound Trion's Nevus) 4:27 PM CDT DERMATOPATHOLOGY LABORATORY Disclaimer An external and internal positive and negative controls are appropriate for the histochemical, immunohistochemical and immunofluorescence stain(s) in this case (if any), except where stated explicitly. The performance characteristics of the stain(s) cited in this report were developed and its performance characteristic determined by the Dermatopathology Laboratory at [facility], directed by Dr. Andrew Seo. These tests need not be, and therefore are not, approved by the [place] Food and Drug Administration. The tests are used for clinical purposes. Billing Codes Specimen Charges Stain Charges 95068 16534 1 1 82388 13412 1 1 4:27 PM CDT DERMATOPATHOLOGY LABORATORY Embedded Images 4:27 PM CDT DERMATOPATHOLOGY LABORATORY Pathology/Cytology TISSUE SPECIMEN FROM SKIN / Unknown 05/31/2024 06/01/2024 9:09 AM CDT Miscellaneous samples (specimen) TISSUE SPECIMEN FROM SKIN / Unknown 05/31/2024 06/01/2024 9:09 AM CDT William Mitchell MD LAB - PATHOLOGY/CYTOLOGY ORDERAB LES Final Result DERMATOPATHOLOGY LABORATORY [facility] - Department of Dermatology [facility] Specialized Medicine [address] [place] [address], [address] [phone] documented in this encounter Visit Diagnoses Not on filedocumented in this encounter Care Teams Lobby Porter Relationship Specialty Start Date End Date Sridhar Britt MD [address] [place] [address] [address] [place] [address] PCP - General Internal Medicine 12/12/17 documented as of this encounter
--- OUTSIDE RECORDS SUMMARY | 2024-11-27 21:48 | XMS_ITS | Clinical Summary ---
Author Organization [facility] Address [address] [place] [phone] Care Team Providers Care Yard Hostler Name Role Phone Sridhar Britt MD Primary [...] 12/16/2020 Assessment & Plan (12/16/2020 9:36 AM PROTECTIVE SERVICES OFFICER): Patient describes episodic headaches typically brought on by emotional stressors with historical characteristics consistent with muscle contraction type headache. She enjoys a normal neurological examination at this time. I would recommend [id number] anti-inflammatories on an as-needed basis if the headaches do recur. Generalized idiopathic epile psy and epileptic syndromes, not intractable, without status epilepticus 11/01/2019 Assessment & Plan (12/16/2020 9:35 AM PROTECTIVE SERVICES OFFICER): Patient continues on lamotrigine 100 mg b.i.d. with good tolerability and no seizures reported over the past year. I have reviewed teratogenicity and suggested use of an mtxa-rtz-dmodnha multivitamin with folic acid an effort to [...] Description 09/07/2024 2:45 PM CDT Office Visit [facility] Medicine Cardiology [address] [place] [address] 8th [place] [address] [place] [address] Francisco Javier Narayanan MD Fitting or adjustment of automatic implantable cardioverter-defibri llator (Primary Dx); Ventricular fibrillation (HCC) 09/07/2024 2:15 PM CDT Ancillary Procedure [facility] Cardiology [address] [place] [address] 8th [place] [address] [place] [address] Ventricular fibrillation (HCC) (Primary Dx); Fitting or adjustment of automatic implantable cardioverter-defibri llator 08/29/2024 Orders Only [facility] Medicine Cardiology [address] [facility] [address]th [place] [address] [place] [address] Francisco Javier Narayanan MD from Last 3 Months Surgical History Surgery Date Site/Laterality Comments [place] APPENDECTOMY 02/08/1996 - 02/06/1997 Appendectomy - (Added [...] = 0.6 oz pur e alcohol) [facility] Utilities Answer Date Recorded In the [...] often do you attend chur ch or quaker services? Patient declined 04/18/2023 Do you belong to any clubs o r organizations such as caodaism groups, unions, fraternal or athletic groups, or [...] place to sleep or slept in a chcf (including now)? No 04/18/2023 Personal Safety Answer Date Recorded Have you ever been in or are you currently in a harmful physical or emotional relationship or is someone making you feel afraid or unsafe? Denies 09/08/2023 Comments No Sex and Gender Information Value Date Recorded Sex Assigned at Not on file Legal Sex Female 4:51 AM PROTECTIVE SERVICES OFFICER Gender Identity Not on file Sexual [...] this topic Medical Devices Implanted Type Area Propagation Manager Device Identifier Shelf Expiration Date Model / Serial / Lot [employer] Casey Mri S-Icd 83.1x69.1mm Pulse Generator Battery Subcutaneous A219 - [id number] - [id number] Implanted:Qty: 1 on 04/14/2023 by Francisco Javier Narayanan MD at [facility] ICD [employer]. 02/20/2025 [id number] / [id number] / [employer] Gin Ssm Rehable S-Icd Subcutaneous Electrode Defibrillator 3501 - [id number] - [id number] Implanted:Qty: 1 on 04/14/2023 by Francisco Javier Narayanan MD at [facility] Subcutaneous Defibrillator Electrode [employer] Gin 02/15/2025 3501 / [id number] / Procedures Procedure Name Priority Date/Time Associated [...] lead(s) --- 86 % remaining Presenting Rhythm ([place]) Ventricular Sensing (VS) --- rate 70 Arrhythmic events (AE) No new arrhythmic events in monitoring period Transmission Information (TI) Device Summary Report Procedure Note Francisco Javier Narayanan MD - 09/05/2024 Interpretation Summary: Battery and Leads (BL) Normal parameters noted on battery and lead(s) --- 86 % remaining Presenting Rhythm ([place]) Ventricular Sensing (VS) --- rate 70 Arrhythmic events (AE) No new arrhythmic events in monitoring period Transmission Information (TI) Device Summary Report us Francisco Javier Narayanan MD CV CARDIAC SERVI KANDICE PROCEDURES Final Result from Last 3 Months Insurance [facility] ANTHEM ACCESS CHOICE ANTHEM ACCESS CHOICE Advance Directives For more information, please contact: [phone] * Full Code (Latest Code Status on File) Date Activated Date Inactivated Comments 04/04/2023 6:53 AM 04/16/2023 3:35 PM * Full Code Date Activated Date Inactivated Comments 12/16/2022 3:10 PM 12/17/2022 10:36 PM Care Teams Yard Hostler Relationship Specialty Start Date End Date Sridhar Britt MD PCP - General 04/08/18
[2024-11-27] MEDS: ACETAMINOPHEN 500 MG TABLET 1000 MG PO (21:53)
[2024-11-27] MEDS: IBUPROFEN 600 MG TABLET PO (21:54)
--- NOTE | 2024-11-27 23:07 | ED_ITS ---
HPI - Extremity Injury (Lower) General Chief Complaint: Extremity Injury, Lower Stated Complaint: left ankle Time Seen by Provider: 11/27/24 21:15 History of Present Illness HPI Narrative: 49-year-old otherwise healthy female presenting after twisting her ankle. She missed 1 step off of a curb and rolled her ankle inward. Has some swelling over the dorsal lateral aspect of the midfoot. No other injuries. Did not try to bear weight on it. Swelling did worsen throughout the evening prior to my evaluation. Did not take anything for pain prior to arrival. No traumatic injuries previously. No ankle surgeries or sprains previously. No other appreciable injuries. No loss consciousness or head trauma. No blood thinner use. Related Data Home Medications ?Medication ?Instructions ?Recorded ?Confirmed ?Last Taken ?Type lamotrigine 100 mg tablet 03/22/19 Unknown History lamotrigine 150 mg tablet 03/22/19 Unknown History Allergies Allergy/AdvReac Type Severity Reaction Status Date / Time Penicillins Allergy Unknown Hives Verified 11/27/24 20:02 Review of Systems Review of Systems: As reviewed above in HPI [facility] Past Medical History Medical History depression Epilepsy Surgical History Surgical History Hx of appendectomy Social History Social History Smoking status: Never smoker Gender identity (if verbalized by the patient): Female Exam Narrative: GENERAL: [Well-appearing, well-nourished, and in no acute distress.] HEAD: [Normocephalic, atraumatic.] EYES: [PERRLA and EOMI.] ENT: Nares clear, no rhinorrhea or epistaxis. Mucous membranes moist. NECK: Supple. CHEST: [Clear to auscultation. No respiratory distress.] HEART: [Regular rate and rhythm]. No murmur heard. [Normal peripheral pulses.] ABDOMEN: [Soft, nondistended], [nontender], [No rigidity or guarding] EXTREMITIES: Dorsal lateral left ankle with obvious swelling. No significant deformity or tenderness along the bilateral malleolar bones. Full passive range of motion, pain limiting active range of motion. Able to wiggle the toes. No discoloration and good 2+ cap refill each digit. Warm extremity. Good DP and PT pulse. SKIN: Warm, dry, no rash. NEURO: [No focal deficits]. Alert and oriented [x3.] PSYCH: [Normal mood and affect.] Course Vital Signs Vital signs: Vital Signs Temperature 36.6 C 11/27/24 20:00 Pulse Rate 75 11/27/24 20:00 Respiratory Rate 14 11/27/24 20:00 Blood Pressure 106/65 11/27/24 20:00 Pulse Oximetry 100 11/27/24 20:00 Oxygen Delivery Room Air 11/27/24 20:00 Temperature 36.6 C 11/27/24 20:00 Pulse Rate 75 11/27/24 20:00 Respiratory Rate 14 11/27/24 20:00 Blood Pressure 106/65 11/27/24 20:00 Pulse Oximetry 100 11/27/24 20:00 Oxygen Delivery Room Air 11/27/24 20:00 MDM - Extremity Injury (Lower) MDM Narrative Medical decision making narrative: 49-year-old otherwise healthy female presenting after twisting her ankle. She missed 1 step off of a curb and rolled her ankle inward. Has some swelling over the dorsal lateral aspect of the midfoot. No other injuries. Did not try to bear weight on it. Swelling did worsen throughout the evening prior to my evaluation. Did not take anything for pain prior to arrival. No traumatic injuries previously. No ankle surgeries or sprains previously. No other appreciable injuries. No loss consciousness or head trauma. No blood thinner use. Dorsal lateral left ankle with obvious swelling. No significant deformity or tenderness along the bilateral malleolar bones. Full passive range of motion, pain limiting active range of motion. Able to wiggle the toes. No discoloration and good 2+ cap refill each digit. Warm extremity. Good DP and PT pulse. Hemodynamically stable. X-rays obtained to rule out fracture but most likely ankle sprain or deltoid ligament sprain. X-rays confirmed no appreciable fracture dislocation. Patient given as wrapping comfort with crutches for ambulation and pain control medications. Discharge home with regular PCP follow-up instructions. Medical Records Attestation: I reviewed the patient's medical records. Imaging Data Attestation: I personally reviewed and interpreted this imaging study as follows: My impression: Impressions Ankle X-Ray 11/27/24 20:48 IMPRESSION: No acute fracture or dislocation. Discharge Plan Discharge Clinical Impression: Ankle sprain and strain Patient Disposition: Home Condition: Stable Instructions: Antibiotic Form, Ankle Sprain (DC) Additional Instructions: Apply ice to the area 20 minutes that time, did not use heat products for the 1st 48 hours after ankle sprain. You can use the prescribed Tylenol and ibuprofen every 6-8 hours for pain control. Wear the Faheem wrap for comfort and crutches for ambulation assistance. He can get a walking boot as your able to ambulate as well. Patient Language: Kyrgyz Prescriptions: New acetaminophen [Tylenol Extra Strength] 500 mg tablet 1,000 mg PO TID PRN (Reason: pain) Qty: 30 0RF ibuprofen 600 mg tablet 600 mg PO TID PRN (Reason: pain) Qty: 30 0RF No Action silver sulfadiazine 1 % cream 1 applic topical BID Qty: 20 0RF Rx Instructions: apply a 1.5 mm thickness lamotrigine 150 mg tablet lamotrigine 100 mg tablet famotidine [Pepcid] 20 mg tablet 20 mg PO BID 15 Days Qty: 30 0RF dicyclomine 10 mg capsule 10 mg PO BID 5 Days Qty: 10 0RF Briviact 50 mg tablet 50 mg PO BID 10 Days Qty: 20 0RF Follow-up/Referrals: Balwinder,Sridhar Medina MD [Primary Care Provider] Time of Disposition: 21:47
== END 2024-11-27 22:12 | disposition home or self-care (01) ==
PROVIDERS: Emergency Provider Student in an Organized Health Care Education/Training Program; PCP Internal Medicine
DX: S93.402A Sprain of unspecified ligament of left ankle, initial encounter (principal); S96.912A Strain of unspecified muscle and tendon at ankle and foot level, left foot, initial encounter; G40.909 Epilepsy, unspecified, not intractable, without status epilepticus; X50.9XXA Other and unspecified overexertion or strenuous movements or postures, initial encounter
CPT/HCPCS: 73610; 99283; A9270